=== PATIENT | male | born 1925 | race African-American/Black ===

== ENCOUNTER 2017-03-11 09:34 | Inpatient (IN) | payer MEDICARE, OTHER ==
[2017-03-11 10:40] LABS: ALT (SGPT) 55 U/L (8-55); AST (SGOT) 58 U/L (5-34); Alkaline Phosphatase 67 U/L (40-150); Anion Gap 13 mmol/L (10-20); BUN (Urea Nitrogen) 23 mg/dL (8.4-25.7); Bilirubin, Total 0.7 mg/dL (0.2-1.2); Calc. Creatinine Clearance 0 mL/min (70-130); Calcium 9.4 mg/dL (7.8-10.44); Carbon Dioxide 26 mmol/L (23-31); Chloride 101 mmol/L (98-107); Estimated GFR-MDRD 52; Globulin 5.2 g/dL (2.4-3.5); Hematocrit 20.6 % (42.0-52.0); Mean Platelet Volume 10.5 fL (7.4-10.4); Protein, Total 8.6 g/dL (5.8-8.1); Red Blood Cell (RBC) Count 1.87 mill/uL (4.70-6.10)
[2017-03-11 10:44] LABS: Troponin I 0.147 ng/mL (< 0.028)
--- NOTE | 2017-03-11 10:48 | CT ---
EXAM: NONCONTRAST HEAD CT: COMPARISON: 03/27/15. HISTORY: CVA with left-sided weakness. Facial droop and speech changes. Last seemed normal last night. TECHNIQUE: Noncontrast head CT is performed from the skull base to the skull vertex. FINDINGS: There is limited evaluation due to motion degradation. There are confluent white matter hypodensiti es due to chronic small-vessel ischemic change. There is stable atrophy. Cortical mcpherson-white matte r differentiation is preserved. Stable configuration of the ventricular system. The calvarium is intact. Adequate aeration of the sinuses and mastoid air cells. Remote left zygom atic arch fracture is noted. IMPRESSION: Limited evaluation due to motion degradation. No acute intracranial process. POS: [facility]
[2017-03-11 11:18] LABS: Anisocytosis MODERATE=16-30 cells (100X) (0-5/hpf); Band 9 % (5-11); Bite Cells SLIGHT = 2-5 cells (100X) (0-1/hpf); Hypochromia SLIGHT = 6-15 cells (100X) (0-5/hpf); Neutrophil 52 % (42-75); Nucleated RBC 1 % (0); Polychromasia SLIGHT = 2-3 cells (100X) (0-2/hpf); Rouleaux Formation SLIGHT = 1-5 cells (100X) (None Seen); Schistocytes SLIGHT = 2-5 cells (100X) (0-1/hpf)
--- NOTE | 2017-03-11 11:53 | RAD ---
AP VIEW CHEST: INDICATIONS: Left-sided weakness and slurred speech. FINDINGS: There is air space consolidation seen in the left lower lobe and lingula, suspicious for pneumonia. This is new from the comparison exam. There is mild cardiomegaly. The pulmonary vasculature is wi thin normal limits. The right lung is clear. No acute osseous abnormality. IMPRESSION: Findings suggestive of left lower lobe and lingular pneumonia. Continued followup is recommended POS: [facility]
[2017-03-11 12:20] LABS: PTT 38.3 SEC (22.9-36.1); Prothrombin Time 17.2 SEC (12.0-14.7)
[2017-03-11] MEDS ORDERED: Aspirin 300 MG Suppository ONE (12:45)
[2017-03-11] MEDS ORDERED: cefTRIAXone\\ROCEPHIN 1 GM, Syringe 0.4 ML in Sterile Water 9.6 ML SLOW IVP SCH (15:00)
[2017-03-11] MEDS ORDERED: Azithromycin 500 MG in Sodium Chloride 0.9% 250 ML 250 ML IVPB SCH (15:15)
[2017-03-11 15:47] LABS: Troponin I 0.143 ng/mL (< 0.028)
[2017-03-11] MEDS ORDERED: Ondansetron ODT 4 MG TAB SL PRN (16:58)
[2017-03-11] MEDS ORDERED: Ondansetron HCl/PF 4 MG/2 ML Vial IVP PRN (16:58)
[2017-03-11] MEDS ORDERED: Acetaminophen 325 MG TAB PO PRN (16:58)
[2017-03-11] MEDS ORDERED: Bisacodyl 10 MG SUPP PR PRN (17:05)
[2017-03-11] MEDS ORDERED: Labetalol HCl 100 MG/20 ML VIAL SLOW IVP PRN (17:05)
[2017-03-11] MEDS ORDERED: Bisacodyl 5 MG TAB PO PRN (17:05)
[2017-03-11] MEDS ORDERED: Acetaminophen 650 MG Suppository PR PRN (17:05)
[2017-03-11] MEDS ORDERED: hydrALAZINE 20 MG/ML VIAL SLOW IVP PRN (17:05)
[2017-03-11 17:53] LABS: Hemoglobin A1c 4.7 % (4.0-6.0)
[2017-03-11] MEDS ORDERED: FLU VACC TS2017-18 (>65YR) 0.5 ML SYRINGE IM ONE (18:45)
[2017-03-11] MEDS: metroNIDAZOLE 500 MG in Premix Bag 1 BAG IVPB SCH (21:52)
[2017-03-11] MEDS: Sodium Chloride 0.9% 1,000 ML IV SCH (21:52)
[2017-03-11] MEDS: Atorvastatin Calcium 20 MG TAB PO SCH (21:53)
[2017-03-11] MEDS ORDERED: traMADol HCl 50 MG TAB PO PRN (22:03)
[2017-03-12] MEDS ORDERED: cefTRIAXone\\ROCEPHIN 1 GM in Sodium Chloride 0.9% 100 ML IVPB SCH (00:01)
[2017-03-12 02:17] LABS: Hematocrit 25.9 % (42.0-52.0); Red Blood Cell (RBC) Count 2.37 mill/uL (4.70-6.10); White Blood Cell (WBC) Count 10.1 thou/uL (4.8-10.8)
[2017-03-12 02:27] LABS: #Monocytes 1.2 thou/uL (0.11-0.59); #Neutrophils 6.9 thou/uL (1.40-6.50); %Basophils 0.4 % (0.0-1.0); %Eosinophils 0.3 % (0.0-10.0); %Lymphocytes 19.7 % (21.0-51.0); %Monocytes 11.3 % (0.0-10.0); Anisocytosis SLIGHT = 6-15 cells (100X) (0-5/hpf); Macrocytosis SLIGHT = 6-15 cells (100X) (0-5/hpf); Target Cells SLIGHT = 2-5 cells (100X) (0-1/hpf)
[2017-03-12 02:33] LABS: ALT (SGPT) 55 U/L (8-55); AST (SGOT) 70 U/L (5-34); Alkaline Phosphatase 67 U/L (40-150); Anion Gap 13 mmol/L (10-20); BUN (Urea Nitrogen) 21 mg/dL (8.4-25.7); Bilirubin, Total 1.2 mg/dL (0.2-1.2); Calc. Creatinine Clearance 35 mL/min (70-130); Calcium 9.3 mg/dL (7.8-10.44); Carbon Dioxide 23 mmol/L (23-31); Chloride 105 mmol/L (98-107); Cholesterol 82 mg/dl (< 200 Desired); Estimated GFR-MDRD 65; Iron 44 ug/dL (65-175); LDL Cholesterol, Calculated 45 mg/dL; Magnesium 1.6 mg/dL (1.6-2.6); Phosphorus 3.1 mg/dL (2.3-4.7); Protein, Total 8.2 g/dL (5.8-8.1)
[2017-03-12] MEDS: metroNIDAZOLE 500 MG in Premix Bag 1 BAG IVPB SCH ×3 (05:20→21:38)
--- NOTE | 2017-03-12 06:24 | HP ---
DATE OF ADMISSION: 03/11/2017 CHIEF COMPLAINT: Stroke. HISTORY OF PRESENT ILLNESS: This is an 89-year-old gentleman with a past history of anemia, chronic kidney disease, myelodysplastic syndrome, hypertension, and throat cancer in remission, who presented after he woke up with left-sided hemiparesis that started sometime between 10 p.m. last night and 6 a.m. in the morning. He subsequently was brought to the ED and in the ED , he was found to have anemia with a hemoglobin of 6.5, 1 unit PRBCs was ordered and he was transferred to our service on the stroke unit. Currently, he feels weak and tired, but other than that he is feeling okay. REVIEW OF SYSTEMS: CONSTITUTIONAL: Denies fever or chills. EYES: Denies icterus or injection or decreased vision. EARS, NOSE, MOUTH, AND THROAT: Denies sore throat or ear pain or discharge. CARDIOVASCULAR: Denies chest pain or trouble breathing or palpitations. RESPIRATORY: Denies cough or wheeze. GASTROINTESTINAL: Denies nausea, vomiting, or constipation. GENITOURINARY: Denies dysuria or urgency. MUSCULOSKELETAL: Denies any myalgias or arthralgias. SKIN: Denies any rash or lesion. NEUROLOGIC: See HPI. PSYCHIATRIC: Denies depression or anxiety HEMATOLOGY: Denies any bruising or bleeding. No hematochezia or melena. All other systems reviewed and are negative. PAST MEDICAL HISTORY: Positive for CKD 3, anemia, myelodysplastic syndrome, hypertension, throat cancer. PAST SURGICAL HISTORY: Throat procedures. MEDICATIONS: Currently on Norvasc, epoetin, Megace, prazosin, tramadol. ALLERGIES: No known drug allergies. SOCIAL HISTORY: Denies tobacco or ethanol use. He has a remote history of smoking. FAMILY HISTORY: Noncontributory. PHYSICAL EXAMINATION: VITAL SIGNS: Temperature 97.9, pulse 85, respirations 18, O2 sat 95% on room air, BP 133/60. GENERAL: Currently in no acute distress. EYES: No icterus or injection. EARS, NOSE, MOUTH, AND THROAT: He has dry mucous membranes, but no visible oral lesions. Pinnae are normal. Nares patent. NECK: With no bruit. Trachea is midline, mobile, no thyromegaly. CARDIOVASCULAR: Regular rate and rhythm without murmurs, gallops, or rubs. No peripheral edema. RESPIRATIONS: Clear to auscultation bilaterally without wheezes, rales, or rhonchi. No increased work of breathing. GASTROINTESTINAL: Bowel sounds positive. Scaphoid. Nontender to palpation. No palpable organomegaly. GENITOURINARY: Deferred. MUSCULOSKELETAL: Without obvious deformity or contracture. Obvious joint effusion. SKIN: Without any evidence of breakdown. He has been turned and his sacrum was without ulcer per nursing. NEUROLOGIC: He has left side hemiparesis 3/5 in upper and lower extremities. On the right side, he feels like he is 4+/5. It is difficult to say because he is a slightly cachectic-looking gentleman who appears a bit weak at baseline. His sensation is intact to light touch in both upper and lower extremities and he says they are symmetric. NEUROLOGICAL: Cranial nerves II through XII are specifically tested and symmetric and intact. No palpable lymphadenopathy in the cervical or axillary chains. LABORATORY DATA: Hemoglobin of 6.5, white count of 5, MCV of 110, platelets 150. Coagulations: PT was 17.2, INR 1.4, PTT 38.3. Chemistry: Sodium 136, potassium 4.4, chloride 101, BUN 23, creatinine 1.53, glucose 140, AST 58. Troponin 0.147 and 0.143. Chest x-ray report is read as finding suggestive of lower lobe and lingular pneumonia. On my personal interpretation, chest film was adequate. and I do not see any significant pneumonia. 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 Brain CT re- demonstrates no acute intracranial process, but he does have evidence of confluent white matter hypodensities and stable cerebral atrophy. ECG, my read , demonstrates NSR, RBBB, nonspecific T wave changes in that setting. ASSESSMENT AND PLAN: This is an 89-year-old male with: 1. Cerebrovascular accident. We will obtain PT, OT, and speech consultations. MRI brain and ultrasound of the neck to avoid any contrast at this time, go ahead and obtain TTE. 2. Anemia, macrocytic. We will obtain iron studies as well as folate, B12, transfuse 1 unit, recheck. Occult was negative. He has had to be admitted for transfusion before. DDx is wide - ckd, hemolysis, GI bleed, other 3. History of myelodysplastic syndrome with reported renal mass as well as a rib metastasis. Discussed with the patient and family and they preferred not to have a treatment for this and want to be made comfortable, but at this time do not want to be DNR. 4. Chronic kidney disease. We will order a PTH, vitamin D, magnesium, phosphorus as well as a renal sonogram and we may consider consulting Nephrology in the a.m. concerning his epoetin. 5. Elevated troponin. Suspect this is chronic kidney disease and currently, he is asymptomatic. We will trend these down and obtain the EKGs. I discussed this with his daughter and the patient and in the event that he were to develop chest pain or ECG changes they are unsure if they want anything done. 6. Elevated AST. Will order CK, consider RUQ sono pending results. 7. Deep venous thrombosis prophylaxis with heparin. 8. Gastrointestinal prophylaxis with an H2 tessie and for his elevated AST of 58. We will go ahead and order CK. MTDD
[2017-03-12 06:42] LABS: Troponin I 0.139 ng/mL (< 0.028)
--- NOTE | 2017-03-12 07:31 | HP-2 ---
DATE OF ADMISSION: 03/11/2017 LOCATION OF ADMISSION: [facility]. CODE STATUS: FULL CODE PRIMARY CARE PHYSICIAN: [facility], Dr. Banks. ATTENDING: Dr. Ray. RESIDENT: Dr. Daryn Renteria, PGY1 HISTORIAN: The daughter and somewhat the patient. Sees an oncologist in [place]. CHIEF COMPLAINT: Left-sided weakness. HISTORY OF PRESENT ILLNESS: This is an 89-year-old -[place] male that presents with new onset stroke symptoms, left-sided weakness. Daughter reports that he had a stroke between 10:00 p.m. yesterday and 6:00 this morning. She says he has had no movement in his left leg, no movement in his left arm, and has slurred speech. She said he has gotten a little bit of movement maybe back in his left leg. Going back to 3 weeks, daughter says that she was called by her brother and he told her that patient was getting more confused. She came to stay with him, reports that he has not been eating for the last 3 weeks. Says he has had episodes of blacking out and has his feet dragging. She said when he has tried to get up to go to the bathroom he has had multiple falls. She said they were supposed to have an appointment with their oncologist today in [place], and wanted to have him get worked up for stroke, because he has been getting forgetful for the last 2 weeks. She reports that he has a history of throat cancer, myelodysplastic syndrome, and he has a known kidney mass and right lung mass. Currently, patient somewhat with it he does appear to be very weak. He seems to only be able to answer 1 worded yes/no questions. When asked about fever or chills, he denied. When asked about nausea, vomiting, diarrhea, constipation, he denied. He denies any dizziness or vision changes or blurred vision. He denies any tingling. Does report having the weakness on the left side. He is able to answer questions. He is able to follow commands, and move his right side. Patient denies any other concerns or complaints at this time. Daughter does report the patient having a bloody bowel movement on Friday. She says she is not sure, she has not checked, but is unsure if he is continuing to have bloody bowel movements; I am not quite sure at this time. No diarrhea or constipation. PAST MEDICAL HISTORY: Throat cancer, myelodysplastic syndrome, and hypertension. PAST SURGICAL HISTORY: Patient was not able to answer appropriately and daughter did not know at this time. ALLERGIES: SULFA allergies. MEDICATIONS: He is on amlodipine 10 mg 1-1/2 tabs daily, takes a Boost supplement drink, docusate 100 mg, takes epoetin km 10,000 units every week, takes megestrol acetate 625 mg, takes multivitamin, takes potassium chloride 20 mEq, takes paroxetine 50 mg, takes terazosin 2 mg, takes tramadol 50 mg 4 times daily p.r.n. as needed. FAMILY HISTORY: Unknown on his like mom and dad, but his daughter and son both report having G6PD deficiency. SOCIAL HISTORY: No tobacco use currently, no alcohol use, and no drugs. REVIEW OF SYSTEMS: All review of systems not listed in the HPI are otherwise negative at this time. OBJECTIVE: VITAL SIGNS: Blood pressure was 114/43, pulse was 88, respirations were 12, temperature was 98.1, pulse ox is 94% on room air, current weight is 62.6 kilograms. GENERAL: He is alert and oriented x1. He is somewhat thin. Does not seem appropriately nourished. He is not completely interactive. He does get weak and tired out when answering questions. HEENT: His mucous membranes are dry. NECK: Supple, no lymphadenopathy, no thyromegaly, maybe possible bruit auscultated or to just be aortic systolic murmur kind of hearing. He does have strong aortic systolic murmur from likely aortic stenosis. CARDIOVASCULAR: Regular rate and rhythm, prominent systolic murmur noted. No gallops. Radial pulses and pedal pulses palpated bilaterally. RESPIRATORY: Normal breathing effort. LUNGS: Clear to auscultation bilaterally. SKIN: Warm and dry. No lesions noted. ABDOMEN: Soft. He has mild pain to palpation in all 4 quadrants. Bowel sounds heard in all 4 quadrants. MUSCULOSKELETAL: Structure looks just a little bit undernourished. His strength is 4/5 on the right side, and the strength in his proximal muscles are 2/5, like of his hip muscles and groin. His left side, he has 0/5 strength. Unable to move his left arm or leg on commands. NEUROLOGIC: He does have focal neurologic deficits. He has a left-sided facial droop. He does have numbness reported on his left side as well. Cranial nerves III, IV, and are intact. Cranial nerve VII has a deficit, as he does have facial droop. Cranial nerve XI is affected, as he is not able to shrug his shoulders. Otherwise, all other cranial nerves are appropriate. LABORATORY DATA: White blood cell count was 5.0, hemoglobin was 6.5, hematocrit was 20.6, MCV was 110, platelets were around 150. Sodium was 136, potassium was 4.4, potassium chloride was 101, CO2 of 26, BUN was 23, creatinine was 1.53, glucose was 140, calcium was 9.4. Total protein was 8.6, albumin was 3.4, alkaline phosphatase was 67, AST was 58, ALT was 55, total bilirubin was 0.7. PTT was 38.3, PT was 17.2, INR was 1.4. CK-MB was 1.6. Troponin was 0.147. EKG showed right bundle branch block and some premature atrial complexes. The chest x-ray showed findings suggestive of left lower lobe and lingular pneumonia. IMAGING: CT of the brain without contrast showed limited evaluation due to motion degradation. No acute process noted. ASSESSMENT AND PLAN: 1. Stroke. We will start him on aspirin and a statin. We will consult Neurology. We will get an MRI to assess extent of stroke damage. We will consult PT, OT and speech consult, especially since he is having the slurred speech. We will check a fasting lipid panel, a TSH, and A1c. We will check an echocardiogram, as he does have the loud systolic murmur, and we will check carotid Dopplers to check for any blockages in the carotid arteries at this time. We will also check a CK, as he is having the muscle weakness and with the stroke to see any effect on muscle from the stroke. 2. Myelodysplastic syndrome with macrocytic anemia and symptomatic anemia currently. We will check a B12, folate, iron, ferritin, total iron binding capacity. We will monitor CBCs. We will try and get his records from his oncologist in [place]. We will transfuse 1 unit of red blood cells, as his hemoglobin was low at 6.5. We will recheck an H and H later after transfusion. We will check fecal occult blood test, as he did have reported blood in his stools on Friday. 3. History of throat cancer with kidney and lung mass. We will get records from outside oncologist. We will consult casework manager as he may need a placement, and likely consider palliative care consult as well in the morning after talking with family further. 4. Chronic kidney disease, stage 3, likely possible with some acute kidney injury. We did look at her past visit from 2012. Creatinine was around its baseline. We will start him on IV fluids at a rate of 100. We will check a PTH , magnesium, and phosphorus and we will continue to monitor BMP daily for improvement. 5. Hypertension. We will hold his home blood pressure medications and allow for permissive hypertension within the next 24 hours. 6. Failure to thrive. We will consult dietary. We will have this speech consult, as right now he is having slurred speech, and I will assess his status on eating and continue with IV fluids for now. The patient is likely a little bit dehydrated. 7. Pneumonia, likely aspiration pneumonia due to poor eating status. We will start him on Rocephin and Flagyl now. We will continue to monitor O2 sats and monitor ortho vitals and we will consider getting cultures if needed if the patient does spike further fever. 8. Elevated troponins. We will continue to trend troponins, as they were in the indeterminate range. We will check 2 more sets of troponins every 3 hours. Continue to follow. 9. Deep vein thrombosis prophylaxis, as he is currently having symptomatic anemia and maybe possible bleeding in his stool. We will just do sequential compression devices for deep vein thrombosis prophylaxis. 10. Syncope, possibly that is secondary to aortic stenosis with a systolic murmur. We are getting the heart echocardiogram along with this stroke as well. He is getting IV fluids. Likely possible dehydration could also be due to his anemia, which we are treating with packed red blood cells. We will continue to monitor and assess. MTDD
--- NOTE | 2017-03-12 08:08 | ULT ---
RENAL ULTRASOUND: Comparison: None. History: Acute kidney injury. Technique: Multiplanar grayscale and color doppler images were obtained in a renal ultrasound. FINDINGS: There are anechoic cysts in both kidneys. The largest on the right measures 6.8 cm in size. The larg est on the left measures 4.7 cm in size. The kidneys demonstrate normal cortical echogenicity withou t hydronephrosis or calculi measuring 14.0 and 11.3 cm in length on the right and left respectively. Small amount of debris is seen in the urinary bladder which is otherwise unremarkable. IMPRESSION: Bilateral renal cysts. POS: [facility]
--- NOTE | 2017-03-12 08:18 | ULT ---
CAROTID ULTRASOUND: History: Stroke. Technique: Multiplanar grayscale and color doppler images obtained in a carotid ultrasound. Spectral analysis of the doppler waveforms were performed. FINDINGS: There is a moderate amount of plaque in the left common and internal carotid artery. No significant plaque is seen on the right. The doppler waveforms are normal bilaterally. Peak systolic velocity in the right ICA is 89 cm/sec. Peak systolic velocity in the right CCA is 91 cm/sec. The right ICA/CCA ratio is 1.0. Peak systolic velocity in the left ICA is 121 cm/sec. Peak systolic velocity is the left CCA 119 cm/ sec. The left ICA/CCA ratio is 1.0. Both vertebral arteries demonstrate antegrade flow without focal stenosis. IMPRESSION: No evidence of hemodynamically significant stenosis. POS: [facility]
[2017-03-12] MEDS ORDERED: Docusate 100 MG CAP PO SCH (09:00)
[2017-03-12] MEDS ORDERED: FLU VACC TS2017-18 (>65YR) 0.5 ML SYRINGE IM ONE (09:00)
[2017-03-12] MEDS ORDERED: Aspirin 81 mg Enteric Coated Tablet PO SCH (09:00)
--- NOTE | 2017-03-12 09:07 | PDOC.FM ---
- Subjective Subjective: Pt sleeping at the time of entry. Family in room states overnight he was irritable and tried getting out of bed. Pt still only responds with one worded answers. Speech still slurred. Pt was not very responsive to commands. Very weak at this time. Pt denies any pain. No real complaints at this time. - Objective MAR Reviewed: Yes Vital Signs & Weight: Vital Signs (12 hours) Temp Pulse Resp BP Pulse Ox 03/12/17 08:00 97.9 F 96 20 139/67 97 03/12/17 03:37 97.8 F 106 H 18 146/81 H 95 03/11/17 23:25 98.9 F 106 H 18 149/70 H 93 L 03/11/17 21:50 98.9 F 106 H 18 93 L Weight Weight 63.639 kg I&O: 03/11/17 03/12/17 03/13/17 06:59 06:59 06:59 Intake Total 1580 Balance 1580 Result Diagrams: 03/12/17 01:59 03/12/17 01:59 Radiology: Carotid Doppler: no significant stenosis Renal U/S: Bilateral Renal cysts <Daryn Renteria - Last Filed: 03/12/17 09:05> - Objective Vital Signs & Weight: Vital Signs (12 hours) Temp Pulse Resp BP Pulse Ox 03/12/17 11:31 98.2 F 87 14 144/71 H 98 03/12/17 08:23 98.2 F 87 14 98 03/12/17 08:00 97.9 F 96 20 139/67 97 03/12/17 03:37 97.8 F 106 H 18 146/81 H 95 Weight Weight 140 lb 4.8 oz I&O: 03/11/17 03/12/17 03/13/17 06:59 06:59 06:59 Intake Total 1580 Balance 1580 Result Diagrams: 03/12/17 01:59 03/12/17 01:59 <Cleve Shaikh - Last Filed: 03/12/17 12:38> Phys Exam - Physical Examination Mucous membranses dry Neck: no JVD, supple Respiratory: no rhonchi Rales on auscultation Cardiovascular: RRR -Murmur not as significant as yesterday Gastrointestinal: soft, no distention, positive bowel sounds Musculoskeletal: no edema, pulses present -Unable to move Left side today. Left facial droop noted. Strenght 3/5 on R -Pt not very responsive to commands. Very weak Deviation from normal: Pt only oriented to person Skin: no rash <Daryn Renteria - Last Filed: 03/12/17 09:05> Dx/Plan (1) CVA (cerebral vascular accident) Code(s): I63.9 - CEREBRAL INFARCTION, UNSPECIFIED Status: Acute Qualifiers: Laterality of affected vessel: left Plan: New onset stroke with residual L. sided weakness and L sided facial droop. Unable to move L. side at this time. -Started on Aspirin and Statin -Neurology consulted- Dr. Zamudio, will await recs -MRI to be obtained today. -Carotid Doppler negative -PT/OT consulted and will tx -Awaiting Speech assessment as he is having slurred speech. -Troponins indeterminate, trended down. Likely demand ischemia -ECHO pending of heart. (2) History of throat cancer Code(s): Z85.819 - PRSNL HX OF MALIG NEOPLM OF UNSP SITE LIP,ORAL CAV,& PHARYNX Status: Chronic Plan: -Also reported by daughter to have a Kidney mass and R. Lung mass -Sees oncology in [place] -Will try and obtain records -Daughter states patient denied chemo or tx at this time -Need to talk with family about advance directives. Pt stated to daughter he wants to be full code. Yet denies tx and is getting progressively weaker. (3) Myelodysplastic syndrome Code(s): D46.9 - MYELODYSPLASTIC SYNDROME, UNSPECIFIED Status: Acute Plan: -Vit B12 elevated. Folate normal. MCV elevated -Has macrocytic anemia on top of anemia of chronic disease. -Iron low, Ferritin high. -Will obtain records from oncology in [place]. -Is on Epogen. On Iron and vitamin supplementation. Will continue home meds (4) Pneumonia Code(s): J18.9 - PNEUMONIA, UNSPECIFIED ORGANISM Status: Acute Qualifiers: Laterality: left Lung location: lower lobe of lung Plan: LLL consolidation noted on CXR -Treating with Rocephin and Flagyl at this time. Likely a component of aspiration pneumonia -Will continue to monitor O2 sats and vital signs at this time. (5) Failure to thrive Code(s): GCZ4908 - Status: Acute Plan: -Pt has not been eating well last 3 weeks. Having multiple falls and getting progressively weaker. -Dietary consulted -NPO until cleared by Speech -Case management consulted as may need placement outpt once discharged. -Hx of cancer. obtain records from oncology in [place] (6) Chronic kidney disease Code(s): N18.9 - CHRONIC KIDNEY DISEASE, UNSPECIFIED Status: Acute Qualifiers: Chronic kidney disease stage: stage 3 (moderate) Qualified Code(s): N18.3 - Chronic kidney disease, stage 3 (moderate) Plan: Cr at baseline when compared to previous visit -Continue IV fluids -Renal U/S shows bilateral cysts. -PTH low. CKD likely stable at this time. (7) Hypertension Code(s): I10 - ESSENTIAL (PRIMARY) HYPERTENSION Status: Acute Plan: -Allowing permissive HTN. -Home BP medications being held. <Daryn Renteria - Last Filed: 03/12/17 09:05> Attending Addendum - Attending Addendum I personally evaluated the patient and discussed the management with Dr. Renteria I agree with the History, Examination, Assessment and Plan documented above with any addition or exceptions noted below. Unfortunate 89 year old with throat cancer, liver and kidney masses who has opted for palliative care only. He presents with new stroke. He is speaking in yes/no answers only and has minimal movement of his left arm and leg. We discussed prognosis with his daughter, who has power of county attorney. He will need placement and probably hospice. <Cleve Shaikh - Last Filed: 03/12/17 12:38>
--- NOTE | 2017-03-12 15:15 | CON ---
DATE OF CONSULTATION: 03/12/2017 LOCATION: [address] [place] [address]. CONSULTING PHYSICIAN: Dr. Daryn Renteria. REASON FOR CONSULTATION: Stroke. HISTORY OF PRESENT ILLNESS: The history is obtained from chart review and from the patient's daught er who was present at bedside. Patient is not able to provide any history. He is an 89-year-old ge ntleman with past medical history of chronic kidney disease, stage 3; anemia; myelodysplastic syndro me; hypertension; throat cancer in remission; who presented yesterday to the ER with left-sided weak ness, slurred speech, and facial droop on the left side. When he presented to the ER, his hemoglobi n was 6.5. He was given 1 unit of packed RBCs and then he was transferred to the stroke unit for fu rther evaluation and treatment. The patient's daughter says that he was not able to hold his left arm and left leg and he had slurre d speech and facial droop on the left side yesterday. He denied any vision changes, no chest pain, no shortness of breath, no loss of consciousness. No seizure activity reported. He denies any prio r history of strokes. He is not on any antiplatelet treatment at home. Today, he is moving his left leg a little bit better compared to yesterday. He still is weak in the left arm. His speech is still slurred. He denies any other symptoms today. PAST MEDICAL HISTORY: As mentioned in the HPI. PAST SURGICAL HISTORY: Throat procedures. MEDICATIONS: Please review the chart. ALLERGIES: No known drug allergies. SOCIAL HISTORY: Denies tobacco and alcohol use. Remote history of smoking. FAMILY HISTORY: Noncontributory. PHYSICAL EXAMINATION: VITAL SIGNS: Temperature 98.2, pulse rate 87, respiratory rate 14, O2 sats 98% on room air, blood p ressure 144/71. GENERAL: The patient is in no apparent distress. HEENT: Normocephalic, atraumatic. Normal sclerae. NECK: Supple. RESPIRATORY: Clear to auscultation bilaterally. CARDIOVASCULAR: Regular rate and rhythm. NEUROLOGIC: The patient opens his eyes when I called his name. He was drowsy appearing. On repeat ed questioning, he was able to tell me his first name. He was able to tell me his daughter's name. He could not tell me his age, date of , where he was, it appeared that patient did not want to answer questions and did not want to follow commands. Speech and language: Slurred speech. He wa s able to name one object. He did not follow commands, but he was able to comprehend, he just did n ot want to participate in exam. Cranial nerves: Pupils were reactive to light bilaterally. Unable to check extraocular movements and visual chun, because patient is not cooperative with the exam. No apparent facial droop noted. Motor: Normal tone and bulk. The patient moved his right upper and right lower extremity more compared to the left. He favored his right side. When I asked he di d not move his left upper extremity, but when assisted he had some tone present. He was not complet jocy flaccid, but he could not hold it against gravity and he dropped it down. The left lower extrem ity, he did not move it much spontaneously and when assisted he dropped it down, but with stimulatio n, he was able to move it, although not as much as the right lower extremity. Tone slightly decreas ed on the left compared to the right. Sensation appeared to be intact to fine touch throughout. Co ordination unable to test. Reflexes decreased throughout. Gait and Romberg not tested. LABORATORY DATA: CBC with normal white cell count, platelets normal. Chemistry, normal electrolyte s. LDL 45. B12 normal, folic acid normal. TSH normal. IMAGING: The patient had CT head done on admission, which was limited due to motion degradation. N o acute intracranial process reported. MRI brain is still pending. Carotid Dopplers did not show a ny significant stenosis. Echocardiogram showed ejection fraction 55%-60%, mild TR. MEDICATIONS: The patient is currently on aspirin and low dose statin. IMPRESSION: 1. Acute onset of left side weakness involving left upper and left lower extremity, left facial chico op and slurred speech, possibly due to stroke. 2. History of anemia. 3. History of chronic kidney disease. 4. History of myelodysplastic syndrome. 5. History of hypertension. RECOMMENDATIONS: 1. We would recommend following up on MRI brain results. If MRI brain shows acute stroke, then wou ld recommend continuing patient on aspirin and statin. 2. Agree with PT, OT, and speech therapy. 3. Continue medical management per primary team. No other recommendations from neurological standp oint. Please call us with questions.
[2017-03-12] MEDS: Sodium Chloride 0.9% 1,000 ML IV SCH (15:34)
[2017-03-12] MEDS: Multivitamin W/ Minerals 1 TAB PO SCH (15:58)
[2017-03-12] MEDS: Potassium Chloride 20 MEQ TAB PO SCH (15:59)
[2017-03-12] MEDS: Megestrol Acetate 800 MG/20 ML UDCUP PO SCH (16:12)
--- NOTE | 2017-03-12 16:15 | MRI ---
BRAIN MRI WITHOUT CONTRAST: Date: 03-12-17 Comparison: None. History: Left sided weakness. Evaluate for acute infarction. Technique: Multiplanar, multisequence MR imaging of the brain is obtained without contrast. FINDINGS: The study was terminated prematurely secondary to persistent significant patient motion artifact. Ax ial diffusion weighted imaging/ADC map was obtained. No other diagnostic imaging could be obtained. The diffusion weighted imaging demonstrates foci of increase signal intensity within bilateral cereb ellar hemispheres, including two foci measuring up to 1.2 cm on the left and two foci measuring up t o 1.1 cm on the right. No restricted diffusion is seen within the brain stem. There is a probable pu nctate focus of restricted diffusion within the posterior deep white matter of the left frontopariet al region. There are probably three foci of restricted diffusion within the right frontal lobe poste riorly, most obvious in the periventricular white matter adjacent to the posterior aspect of the bod y of the right lateral ventricle measuring up to 9 mm. An additional focus of probable restricted di ffusion is seen within the posterolateral left frontotemporal region, best seen on image 42. IMPRESSION: Limited examination secondary to patient motion artifact. The only diagnostic quality imaging that c ould be obtained was the diffusion weighted sequence, which demonstrates evidence of bilateral supra tentorial and infratentorial acute infarctions suggesting an embolic phenomenon. POS: C
[2017-03-12] MEDS: Aspirin 300 MG Suppository PR SCH (16:59)
[2017-03-12] MEDS: cefTRIAXone\\ROCEPHIN 1 GM, Syringe 0.4 ML in Sterile Water 9.6 ML SLOW IVP SCH (18:01)
[2017-03-12] MEDS: Atorvastatin Calcium 20 MG TAB PO SCH (20:27)
[2017-03-12] MEDS: Docusate Sodium 100 MG/10 ML UDCUP PO SCH (20:29)
[2017-03-12] MEDS ORDERED: Terazosin HCl 1 MG CAP PO SCH (21:00)
[2017-03-12] MEDS: Acetaminophen 325 MG TAB PO PRN (21:38)
[2017-03-13] MEDS: Sodium Chloride 0.9% 1,000 ML IV SCH ×4 (04:12→21:02)
[2017-03-13] MEDS: metroNIDAZOLE 500 MG in Premix Bag 1 BAG IVPB SCH ×3 (05:24→21:02)
[2017-03-13 06:36] LABS: Hematocrit 22.1 % (42.0-52.0); Mean Platelet Volume 11.3 fL (7.4-10.4); Red Blood Cell (RBC) Count 2.03 mill/uL (4.70-6.10); White Blood Cell (WBC) Count 6.3 thou/uL (4.8-10.8)
[2017-03-13 06:53] LABS: Anisocytosis MODERATE=16-30 cells (100X) (0-5/hpf); Band 4 % (5-11); Macrocytosis SLIGHT = 6-15 cells (100X) (0-5/hpf); Neutrophil 55 % (42-75); Target Cells SLIGHT = 2-5 cells (100X) (0-1/hpf); Tear Drops SLIGHT = 2-5 cells (100X) (0-1/hpf)
[2017-03-13 06:56] LABS: Anion Gap 15 mmol/L (10-20); BUN (Urea Nitrogen) 25 mg/dL (8.4-25.7); Calc. Creatinine Clearance 36 mL/min (70-130); Calcium 8.4 mg/dL (7.8-10.44); Carbon Dioxide 19 mmol/L (23-31); Chloride 109 mmol/L (98-107); Estimated GFR-MDRD 66
--- NOTE | 2017-03-13 08:21 | PDOC.FM ---
- Subjective Subjective: Pt doing much better this morning. Still only oriented to person. Speech is still slurred and somewhat hard to understand. Pt reports having tingling on his left side. Daughter also says he is having tremors on his right side as well. Daughter thinks he is doing better this morning. Had talk with patient about his code status. Pt still full code at this time. - Objective MAR Reviewed: Yes Vital Signs & Weight: Vital Signs (12 hours) Temp Pulse Resp BP Pulse Ox 03/13/17 04:00 98.0 F 89 16 120/65 99 03/12/17 23:37 97.7 F 93 18 121/65 98 03/12/17 21:15 99.6 F 97 16 95 Weight Admit Weight 61.87 kg Weight 63.639 kg I&O: 03/12/17 03/13/17 03/14/17 06:59 06:59 06:59 Intake Total 1580 1550 Balance 1580 1550 Result Diagrams: 03/13/17 06:26 03/13/17 06:26 Radiology Reviewed by me: Yes Radiology: Brain MRI: bilateral supratentorial and infratentorial acute infarctions suggesting embolic picture Carotid Doppler: Negative ECHO: EF 55-60%. mod elevated pulm pressure <Daryn Renteria - Last Filed: 03/13/17 08:18> - Objective Vital Signs & Weight: Vital Signs (12 hours) Temp Pulse Resp BP Pulse Ox 03/13/17 08:00 98.5 F 89 20 120/72 95 03/13/17 04:00 98.0 F 89 16 120/65 99 03/12/17 23:37 97.7 F 93 18 121/65 98 Weight Admit Weight 136 lb 6.4 oz Weight 140 lb 4.8 oz I&O: 03/12/17 03/13/17 03/14/17 06:59 06:59 06:59 Intake Total 1580 1550 Balance 1580 1550 Result Diagrams: 03/13/17 06:26 03/13/17 06:26 <Cleve Shaikh - Last Filed: 03/13/17 10:55> Phys Exam - Physical Examination Neck: no nodes, no JVD, supple, full ROM Respiratory: no wheezing, no rhonchi, clear to auscultation bilateral Cardiovascular: RRR, no significant murmur, no rub Gastrointestinal: soft, non-tender, no distention, positive bowel sounds Musculoskeletal: no edema, pulses present strength 4/5 r. side. 3/5 on l. side pt regaining movement and strength in left side, move against gravity Facial droop on L. side. Pt reports tingling sensation on touch. Deviation from normal: Oriented to person Skin: no rash <Daryn Renteria - Last Filed: 03/13/17 08:18> Dx/Plan (1) CVA (cerebral vascular accident) Code(s): I63.9 - CEREBRAL INFARCTION, UNSPECIFIED Status: Acute Qualifiers: Laterality of affected vessel: left Plan: CVA with residual L. sided weakness. Having tremors on the R. side -Started on Aspirin and Statin -Neurology consulted- Dr. Zamudio, will await recs -MRI- supratentorial and infratentorial infarctions likely related to emboli -Carotid Doppler negative -PT/OT consulted and will tx -Speech consulted- appreciate recs, placed on pureed diet at this time -Troponins indeterminate, trended down. Likely demand ischemia -ECHO shows normal Ejection fraction. no major abnormality noted -Will give gabapentin at this time for tingling and nerve pain. (2) History of throat cancer Code(s): Z85.819 - PRSNL HX OF MALIG NEOPLM OF UNSP SITE LIP,ORAL CAV,& PHARYNX Status: Chronic Plan: -Also reported by daughter to have a Kidney mass and R. Lung mass -Sees oncology in [place] -Daughter states patient denied chemo or tx at this time -Need to talk with family about advance directives. Pt stated to daughter he wants to be full code. Yet denies tx and is getting progressively weaker. -Talked with patient about code status. Will consult palliative care to discuss options at this time. (3) Myelodysplastic syndrome Code(s): D46.9 - MYELODYSPLASTIC SYNDROME, UNSPECIFIED Status: Acute Plan: -Has macrocytic anemia with anemia of chronic disease as well. -iron low, ferritin high -Hgb 6.9. Will transfuse 1 unit of packed RBC at this time. -Vit B12 elevated. Folate normal. MCV elevated -FOBT negative -Is on Epogen. On Iron and vitamin supplementation. Will continue home meds (4) Pneumonia Code(s): J18.9 - PNEUMONIA, UNSPECIFIED ORGANISM Status: Acute Qualifiers: Laterality: left Lung location: lower lobe of lung Plan: LLL consolidation noted on CXR -Treating with Rocephin and Flagyl at this time. Likely a component of aspiration pneumonia -Will continue to monitor O2 sats and vital signs at this time. -No fevers overnight (5) Failure to thrive Code(s): DQL9157 - Status: Acute Plan: -Pt has not been eating well last 3 weeks. Having multiple falls and getting progressively weaker. -Dietary consulted -Pureed diet as recommended by speech -Case management consulted as may need placement outpt once discharged. -Will consult palliative care -Hx of cancer. (6) Chronic kidney disease Code(s): N18.9 - CHRONIC KIDNEY DISEASE, UNSPECIFIED Status: Acute Qualifiers: Chronic kidney disease stage: stage 3 (moderate) Qualified Code(s): N18.3 - Chronic kidney disease, stage 3 (moderate) Plan: Cr at baseline when compared to previous visit -Continue IV fluids -Renal U/S shows bilateral cysts. -PTH low. CKD likely stable at this time. (7) Hypertension Code(s): I10 - ESSENTIAL (PRIMARY) HYPERTENSION Status: Acute Plan: -BP stable, no need to restart BP medication at this time. Will continue to monitor and tx as needed <Daryn Renteria - Last Filed: 03/13/17 08:18> Attending Addendum - Attending Addendum I personally evaluated the patient and discussed the management with Dr. Renteria I agree with the History, Examination, Assessment and Plan documented above with any addition or exceptions noted below. He is improving slowly. His speech is better and he is moving his left arm better. Still moderate to severe weakness in his left leg. We are doing PT/OT. His Hgb is 6.9 so we are going to transfuse today. He needs rehab from stroke. We have discussed overall prognosis with his family and they are making a decision related to code status. <Cleve Shaikh - Last Filed: 03/13/17 10:55>
[2017-03-13] MEDS: Docusate Sodium 100 MG/10 ML UDCUP PO SCH ×2 (10:09→20:52)
[2017-03-13] MEDS: Aspirin 300 MG Suppository PR SCH (10:09)
[2017-03-13] MEDS: Megestrol Acetate 800 MG/20 ML UDCUP PO SCH (10:10)
[2017-03-13] MEDS: Gabapentin 300 MG CAP PO SCH ×3 (10:10→20:53)
[2017-03-13] MEDS: Multivitamin W/ Minerals 1 TAB PO SCH (10:11)
[2017-03-13] MEDS: Potassium Chloride 20 MEQ TAB PO SCH (10:11)
[2017-03-13] MEDS ORDERED: Epoetin (ESRD) 10,000 UNITS/ML VIAL SC SCH (10:45)
[2017-03-13] MEDS: Epoetin (ESRD) 10,000 UNITS/ML VIAL SC SCH (15:09)
[2017-03-13] MEDS: cefTRIAXone\\ROCEPHIN 1 GM, Syringe 0.4 ML in Sterile Water 9.6 ML SLOW IVP SCH (15:20)
[2017-03-13] MEDS: Atorvastatin Calcium 20 MG TAB PO SCH (20:53)
[2017-03-13 21:57] LABS: Hematocrit 25.3 % (42.0-52.0)
[2017-03-14] MEDS: metroNIDAZOLE 500 MG in Premix Bag 1 BAG IVPB SCH ×3 (05:12→21:32)
[2017-03-14 05:27] LABS: Anion Gap 13 mmol/L (10-20); BUN (Urea Nitrogen) 22 mg/dL (8.4-25.7); Calc. Creatinine Clearance 44 mL/min (70-130); Carbon Dioxide 18 mmol/L (23-31); Chloride 108 mmol/L (98-107); Estimated GFR-MDRD 77
[2017-03-14 05:41] LABS: Anisocytosis SLIGHT = 6-15 cells (100X) (0-5/hpf); Band 12 % (5-11); Hematocrit 26.2 % (42.0-52.0); Mean Platelet Volume 10.7 fL (7.4-10.4); Neutrophil 46 % (42-75); Nucleated RBC 1 % (0); Red Blood Cell (RBC) Count 2.56 mill/uL (4.70-6.10); Target Cells SLIGHT = 2-5 cells (100X) (0-1/hpf); White Blood Cell (WBC) Count 5.5 thou/uL (4.8-10.8)
[2017-03-14] MEDS: Aspirin 325 MG TAB PO SCH (08:19)
[2017-03-14] MEDS: Gabapentin 300 MG CAP PO SCH (08:19)
[2017-03-14] MEDS: Megestrol Acetate 800 MG/20 ML UDCUP PO SCH (08:19)
[2017-03-14] MEDS: Potassium Chloride 20 MEQ TAB PO SCH (08:19)
[2017-03-14] MEDS: Docusate Sodium 100 MG/10 ML UDCUP PO SCH ×2 (08:19→21:32)
[2017-03-14] MEDS: Multivitamin W/ Minerals 1 TAB PO SCH (08:20)
--- NOTE | 2017-03-14 08:45 | PDOC.FM ---
- Subjective Subjective: Pt reports just feeling weak today. Pt was sleeping when entering the room and was tired when talking with him. Reports his tingling has improved since starting the gabapentin. Denies any other pain. No acute overnight events. - Objective MAR Reviewed: Yes Vital Signs & Weight: Vital Signs (12 hours) Temp Pulse Resp BP Pulse Ox 03/14/17 07:38 98.4 F 99 18 131/72 96 03/14/17 05:30 98.6 F 03/14/17 03:56 99.4 F 74 18 149/73 H 96 03/14/17 00:15 141/75 H 03/14/17 00:08 99.1 F 98 20 192/91 H 94 L 03/13/17 20:50 99.2 F 88 20 98 Weight Admit Weight 61.87 kg Weight 67.495 kg I&O: 03/13/17 03/14/17 03/15/17 06:59 06:59 06:59 Intake Total 1550 2480 350 Output Total 1 Balance 1550 2479 350 Result Diagrams: 03/14/17 04:08 03/14/17 04:08 Radiology Reviewed by me: Yes Radiology: Brain MRI: bilateral supratentorial and infratentorial acute infarctions suggesting embolic picture Carotid Doppler: Negative ECHO: EF 55-60%. mod elevated pulm pressure <Daryn Renteria - Last Filed: 03/14/17 08:45> - Objective Vital Signs & Weight: Vital Signs (12 hours) Temp Pulse Resp BP Pulse Ox 03/14/17 08:00 98.4 F 99 18 96 03/14/17 07:38 98.4 F 99 18 131/72 96 03/14/17 05:30 98.6 F 03/14/17 03:56 99.4 F 74 18 149/73 H 96 03/14/17 00:15 141/75 H 03/14/17 00:08 99.1 F 98 20 192/91 H 94 L Weight Admit Weight 136 lb 6.4 oz Weight 148 lb 12.8 oz I&O: 03/13/17 03/14/17 03/15/17 06:59 06:59 06:59 Intake Total 1550 2480 350 Output Total 1 Balance 1550 2479 350 Result Diagrams: 03/14/17 04:08 03/14/17 04:08 <Cleve Shaikh - Last Filed: 03/14/17 11:26> Phys Exam - Physical Examination HEENT: PERRLA, moist MMs Neck: no nodes, no JVD, supple Respiratory: no wheezing, no rales, no rhonchi, clear to auscultation bilateral Cardiovascular: RRR, no significant murmur, no rub Gastrointestinal: soft, non-tender, no distention, positive bowel sounds Musculoskeletal: no edema, pulses present Facial droop improving. Pt can hold left arm against gravity strength 3/5 Cant lift left leg against gravity. Able to wiggle toes bilat. speech slur Lymphatic: no nodes Psychiatric: normal affect Deviation from normal: Oriented to person. Skin: no rash <Daryn Renteria - Last Filed: 03/14/17 08:45> Dx/Plan (1) CVA (cerebral vascular accident) Code(s): I63.9 - CEREBRAL INFARCTION, UNSPECIFIED Status: Acute Qualifiers: Laterality of affected vessel: left Plan: CVA with residual L. sided weakness. Having tremors on the R. side -Started on Aspirin and Statin -Neurology consulted- Dr. Zamudio, will follow recs -MRI- supratentorial and infratentorial infarctions likely related to emboli -Carotid Doppler negative -PT/OT consulted and will tx -Speech consulted- appreciate recs, placed on pureed diet at this time -Troponins indeterminate, trended down. Likely demand ischemia -ECHO shows normal Ejection fraction. no major abnormality noted -Gabapentin for tingling and nerve pain. Pt states it is helping -Per case managment Pt doesn't recommend rehab, doesn't think pt will tolerate. Awaiting placement per case management and palliative care (2) History of throat cancer Code(s): Z85.819 - PRSNL HX OF MALIG NEOPLM OF UNSP SITE LIP,ORAL CAV,& PHARYNX Status: Chronic Plan: -Also reported by daughter to have a Kidney mass and R. Lung mass -Sees oncology in [place] -Daughter states patient denied chemo or tx at this time -Need to talk with family about advance directives. Has been decided by daughter to be chemical code only at this time.. Yet denies tx and is getting progressively weaker. - Palliative care working with daughter and pt about tx options (3) Myelodysplastic syndrome Code(s): D46.9 - MYELODYSPLASTIC SYNDROME, UNSPECIFIED Status: Acute Plan: -Has macrocytic anemia with anemia of chronic disease as well. -iron low, ferritin high -Hgb 8.0 status post transfusion yesterday. transfused a total of 2uPRBC -Vit B12 elevated. Folate normal. MCV elevated -FOBT negative -Is on Epogen. On Iron and vitamin supplementation. Will continue home meds (4) Pneumonia Code(s): J18.9 - PNEUMONIA, UNSPECIFIED ORGANISM Status: Acute Qualifiers: Laterality: left Lung location: lower lobe of lung Plan: LLL consolidation noted on CXR -Treating with Rocephin and Flagyl at this time. Likely a component of aspiration pneumonia -Will continue to monitor O2 sats and vital signs at this time. -No fevers overnight (5) Failure to thrive Code(s): DQC2549 - Status: Acute Plan: -Pt has not been eating well last 3 weeks. Having multiple falls and getting progressively weaker. -Dietary consulted -Pureed diet as recommended by speech -Case management consulted. working with family to decide on hospice -Palliative care consulted. working with family to discuss care goals -Hx of cancer. (6) Chronic kidney disease Code(s): N18.9 - CHRONIC KIDNEY DISEASE, UNSPECIFIED Status: Acute Qualifiers: Chronic kidney disease stage: stage 3 (moderate) Qualified Code(s): N18.3 - Chronic kidney disease, stage 3 (moderate) Plan: Cr at baseline when compared to previous visit -Continue IV fluids -Renal U/S shows bilateral cysts. -PTH low. CKD likely stable at this time. (7) Hypertension Code(s): I10 - ESSENTIAL (PRIMARY) HYPERTENSION Status: Acute Plan: -BP stable, no need to restart BP medication at this time. Will continue to monitor and tx as needed <Daryn Renteria - Last Filed: 03/14/17 08:45> Attending Addendum - Attending Addendum I personally evaluated the patient and discussed the management with Dr. Renteria I agree with the History, Examination, Assessment and Plan documented above with any addition or exceptions noted below. Patient is sleepy and less responsive today. We did start gabapentin on him yesterday. We will hold that. He is otherwise stable. We are waiting for placement. <Cleve Shaikh - Last Filed: 03/14/17 11:26>
[2017-03-14] MEDS: Epoetin (ESRD) 10,000 UNITS/ML VIAL SC SCH (10:04)
--- NOTE | 2017-03-14 14:21 | PQF ---
CLINICAL DOCUMENTATION IMPROVEMENT CLARIFICATION FORM: ICD-10 Updated PLEASE DO AN ADDENDUM TO THE PROGRESS NOTE WITH ANY DOCUMENTATION UPDATES OR ADDITIONS AND CARRY THROUGH TO DC SUMMARY. THANK YOU. Date: 03/14/17 ATTN: Dr. Renteria/ Attending Dr. Shaikh 03/17/17 Please exercise your independent, professional judgment in responding to the clarification form. Clinical indicators are provided on the bottom of this form for your review Please check appropriate box(s): [ ] Protein Calorie Malnutrition: [ ] Mild [ ] Moderate [ ] Severe [ x ] Other Malnutrition (please specify) Annorexia, not eating [ ] Underweight without malnutrition [ ] Cachexia [ ] Other diagnosis [ ] Unable to determine CLINICAL INDICATORS - SIGNS / SYMPTOMS / LABS ED RECORD: ELDERLY MALE W/ DIFFUSE MUSCLE WASTING IN NO DISTRESS PN 03/13: FAILURE TO THRIVE. PT HAS NOT BEEN EATING WELL LAST 3 WEEKS. 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 03/14: DX: MALNUTRITION R/T ONCOLOGY EVIDENCE BY POOR APPETITE FOR 3+ WEEKS, MUSCLE WASTING OBSERVED TO TEMPLES. RISKS: H&P: MYELODYSPLASTIC SYNDROME W/ MACROCYTIC ANEMIA & SYMPTOMATIC ANEMIA. HX OF THROAT CANCER W/ KIDNEY & LUNG MASS. CKD 3. FAILURE TO THRIVE. PNEUMONIA. STROKE. TREATMENT: CPOE 03/11: CONSULT DIETITIAN: NOT EATING, FAILURE TO THRIVE Thank you, Paulette (This form is maintained as a part of the permanent medical record) 2015 [employer]. All Rights Reserved Paulette Ruelas RN, BSN [email or web address] Office: [phone] [email or web address]
[2017-03-14] MEDS: cefTRIAXone\\ROCEPHIN 1 GM, Syringe 0.4 ML in Sterile Water 9.6 ML SLOW IVP SCH (16:53)
[2017-03-14] MEDS: Atorvastatin Calcium 20 MG TAB PO SCH (21:32)
[2017-03-14] MEDS ORDERED: Gabapentin 300 MG CAP PO SCH ×2 (23:45)
[2017-03-15] MEDS: Melatonin 3 MG TAB PO PRN ×2 (00:28→20:48)
[2017-03-15] MEDS: Acetaminophen 325 MG TAB PO PRN (04:37)
[2017-03-15] MEDS: metroNIDAZOLE 500 MG in Premix Bag 1 BAG IVPB SCH (05:52)
[2017-03-15 06:39] LABS: Anisocytosis SLIGHT = 6-15 cells (100X) (0-5/hpf); Band 1 % (5-11); Elliptocytes SLIGHT = 2-5 cells (100X) (0-1/hpf); Mean Platelet Volume 10.8 fL (7.4-10.4); Neutrophil 44 % (42-75); Red Blood Cell (RBC) Count 2.28 mill/uL (4.70-6.10); Target Cells SLIGHT = 2-5 cells (100X) (0-1/hpf); White Blood Cell (WBC) Count 4.6 thou/uL (4.8-10.8)
[2017-03-15 06:42] LABS: Anion Gap 15 mmol/L (10-20); BUN (Urea Nitrogen) 21 mg/dL (8.4-25.7); Calc. Creatinine Clearance 41 mL/min (70-130); Carbon Dioxide 18 mmol/L (23-31); Chloride 108 mmol/L (98-107); Estimated GFR-MDRD 72
--- NOTE | 2017-03-15 06:51 | PDOC.FM ---
- Subjective Subjective: Pt sleeping when entering the room. Pt resting. Reports doing well. Reports having tingling pain. Son said he was a little restless yesterday afternoon. Otherwise no acute events overnight. No other complaints - Objective MAR Reviewed: Yes Vital Signs & Weight: Vital Signs (12 hours) Temp Pulse Resp BP Pulse Ox 03/15/17 05:18 98.8 F 87 18 163/81 H 94 L 03/15/17 00:34 98.8 F 90 16 142/70 H 97 03/14/17 21:00 98.9 F 86 18 144/72 H 96 03/14/17 20:55 98.9 F 80 16 96 Weight Admit Weight 61.87 kg Weight 67.495 kg I&O: 03/13/17 03/14/17 03/15/17 06:59 06:59 06:59 Intake Total 1550 2480 650 Output Total 1 Balance 1550 2479 650 Result Diagrams: 03/15/17 06:15 03/15/17 06:15 Radiology Reviewed by me: Yes (No new images to review) <Daryn Renteria - Last Filed: 03/15/17 06:49> - Objective Vital Signs & Weight: Vital Signs (12 hours) Temp Pulse Resp BP BP Pulse Ox 03/15/17 08:48 81 133/71 03/15/17 07:51 98.9 F 81 18 97 03/15/17 07:47 98.9 F 81 18 133/71 97 03/15/17 05:18 98.8 F 87 18 163/81 H 94 L 03/15/17 00:34 98.8 F 90 16 142/70 H 97 Weight Admit Weight 136 lb 6.4 oz Weight 148 lb 12.8 oz I&O: 03/14/17 03/15/17 03/16/17 06:59 06:59 06:59 Intake Total 2480 650 Output Total 1 2 Balance 4060 650 -2 Result Diagrams: 03/15/17 06:15 03/15/17 06:15 <Cleve Shaikh - Last Filed: 03/15/17 11:06> Phys Exam - Physical Examination Constitutional: NAD HEENT: moist MMs Neck: no nodes, no JVD, supple Respiratory: no wheezing, no rales, no rhonchi, clear to auscultation bilateral Cardiovascular: RRR, no significant murmur, no rub Gastrointestinal: soft, non-tender, no distention, positive bowel sounds Musculoskeletal: no edema, pulses present Left sided UE, LE weakness. Pt reports tingling. No real improvement on strength. Lymphatic: no nodes Psychiatric: normal affect Skin: no rash <Daryn Renteria - Last Filed: 03/15/17 06:49> Dx/Plan (1) CVA (cerebral vascular accident) Code(s): I63.9 - CEREBRAL INFARCTION, UNSPECIFIED Status: Acute Qualifiers: Laterality of affected vessel: left Plan: CVA with residual L. sided weakness. Having tremors on the R. side -Started on Aspirin and Statin -Neurology consulted- Dr. Zamudio, will follow recs -MRI- supratentorial and infratentorial infarctions likely related to emboli -Carotid Doppler negative -PT/OT consulted and will tx -Speech consulted- appreciate recs, placed on pureed diet at this time -Troponins indeterminate, trended down. Likely demand ischemia -ECHO shows normal Ejection fraction. no major abnormality noted -Gabapentin for tingling and nerve pain. Pt states it is helping. Decreased the dose as yesterday he was more tired and woke up more after being held -Per case managment waiting for Home Health approval which likely wont happen til Friday (2) History of throat cancer Code(s): Z85.819 - PRSNL HX OF MALIG NEOPLM OF UNSP SITE LIP,ORAL CAV,& PHARYNX Status: Chronic Plan: -Also reported by daughter to have a Kidney mass and R. Lung mass -Sees oncology in [place] -Daughter states patient denied chemo or tx at this time -Has been decided by daughter to be chemical code only at this time. OOH DNR signed. -Awaiting home health set up. (3) Myelodysplastic syndrome Code(s): D46.9 - MYELODYSPLASTIC SYNDROME, UNSPECIFIED Status: Acute Plan: -Has macrocytic anemia with anemia of chronic disease as well. -iron low, ferritin high -Hgb 7.3 today. transfused a total of 2uPRBC -Vit B12 elevated. Folate normal. MCV elevated -FOBT negative -Is on Epogen. On Iron and vitamin supplementation. Will continue home meds -Will continue to monitor CBC and assess if sx and tx as needed (4) Failure to thrive Code(s): [id number] - Status: Acute Qualifiers: Failure to thrive age range: in adult Qualified Code(s): R62.7 - Adult failure to thrive Plan: -Pt has not been eating well last 3 weeks. Having multiple falls and getting progressively weaker. -Dietary consulted -Pureed diet as recommended by speech -Case management consulted- awaiting home health setup, will transition to hospice from there. -Palliative care consulted -Hx of cancer. (5) Chronic kidney disease Code(s): N18.9 - CHRONIC KIDNEY DISEASE, UNSPECIFIED Status: Acute Qualifiers: Chronic kidney disease stage: stage 3 (moderate) Qualified Code(s): N18.3 - Chronic kidney disease, stage 3 (moderate) Plan: Cr at baseline when compared to previous visit -tolerating PO. will continue to monitor BMPs and start IV fluids if needed. -Renal U/S shows bilateral cysts. -PTH low. CKD likely stable at this time. (6) Hypertension Code(s): I10 - ESSENTIAL (PRIMARY) HYPERTENSION Status: Acute Plan: -BP a little elevated. Restarted home Amlodipine at this time. (7) Pneumonia Code(s): J18.9 - PNEUMONIA, UNSPECIFIED ORGANISM Status: Resolved Qualifiers: Laterality: left Lung location: lower lobe of lung Plan: LLL consolidation noted on CXR -Rocephin and Flagyl D/C at this time. -Will continue to monitor O2 sats and vital signs at this time. -No fevers. No elevated white count. -Will continue to monitor for sxs <Daryn Renteria - Last Filed: 03/15/17 06:49> Attending Addendum - Attending Addendum I personally evaluated the patient and discussed the management with Dr. Renteria I agree with the History, Examination, Assessment and Plan documented above with any addition or exceptions noted below. Patient is stable, but still weak from his stroke. Given his advance throat cancer, the family wants him to go home with palliative care and home health. [facility] so we can't arrange that until Friday. He is otherwise stable. <Cleve Shaikh - Last Filed: 03/15/17 11:06>
[2017-03-15] MEDS: Aspirin 325 MG TAB PO SCH (08:46)
[2017-03-15] MEDS: Gabapentin 100 MG CAP PO SCH ×3 (08:47→20:47)
[2017-03-15] MEDS: Amlodipine 5 MG TAB PO SCH (08:48)
[2017-03-15] MEDS: Multivitamin W/ Minerals 1 TAB PO SCH (08:48)
[2017-03-15] MEDS: Potassium Chloride 20 MEQ TAB PO SCH (08:48)
[2017-03-15] MEDS: Megestrol Acetate 800 MG/20 ML UDCUP PO SCH (08:49)
[2017-03-15] MEDS: Docusate Sodium 100 MG/10 ML UDCUP PO SCH ×2 (08:49→20:48)
[2017-03-15] MEDS: Epoetin (ESRD) 10,000 UNITS/ML VIAL SC SCH (12:25)
[2017-03-15] MEDS: Atorvastatin Calcium 20 MG TAB PO SCH (20:48)
[2017-03-16] MEDS: Acetaminophen 325 MG TAB PO PRN ×2 (03:34→22:56)
[2017-03-16 07:23] LABS: Band 3 % (5-11); Hematocrit 23.1 % (42.0-52.0); Mean Platelet Volume 10.9 fL (7.4-10.4); Neutrophil 41 % (42-75); Poikilocytosis SLIGHT = 6-15 cells (100X) (0-5/hpf); Red Blood Cell (RBC) Count 2.29 mill/uL (4.70-6.10); White Blood Cell (WBC) Count 4.8 thou/uL (4.8-10.8)
--- NOTE | 2017-03-16 07:28 | PDOC.FM ---
- Subjective Subjective: Pt family states he did not sleep at all last night. States he was restless and seemed more confused. They asked for something to help him relax. Pt denied any pain this morning. Pt was moving L. side better this morning. Denies any chest pain, fevers, or chills. Pt denies any other concerns or complaints at this time. - Objective MAR Reviewed: Yes Vital Signs & Weight: Vital Signs (12 hours) Temp Pulse Resp BP Pulse Ox 03/16/17 04:10 99.8 F H 87 18 147/71 H 96 03/15/17 23:45 98.9 F 91 18 154/81 H 94 L 03/15/17 20:50 98.9 F 81 18 132/69 96 03/15/17 20:00 98.5 F 82 14 96 Weight Admit Weight 61.87 kg Weight 67.495 kg I&O: 03/15/17 03/16/17 03/17/17 06:59 06:59 06:59 Intake Total 650 480 Output Total 2 Balance 650 478 Result Diagrams: 03/16/17 06:55 03/15/17 06:15 <Daryn Renteria - Last Filed: 03/16/17 07:26> - Objective Vital Signs & Weight: Vital Signs (12 hours) Temp Pulse Resp BP BP Pulse Ox 03/16/17 09:23 86 151/70 H 03/16/17 07:27 98.3 F 86 16 151/70 H 94 L 03/16/17 04:10 99.8 F H 87 18 147/71 H 96 03/15/17 23:45 98.9 F 91 18 154/81 H 94 L Weight Admit Weight 136 lb 6.4 oz Weight 148 lb 12.8 oz I&O: 03/15/17 03/16/17 03/17/17 06:59 06:59 06:59 Intake Total 650 480 Output Total 2 Balance 650 478 Result Diagrams: 03/16/17 06:55 03/15/17 06:15 <Cleve Shaikh - Last Filed: 03/16/17 10:50> Phys Exam - Physical Examination HEENT: moist MMs, oral pharynx no lesions Neck: no nodes, no JVD, supple Respiratory: no wheezing, no rales, no rhonchi, clear to auscultation bilateral Cardiovascular: RRR, no significant murmur, no rub Gastrointestinal: soft, non-tender, no distention, positive bowel sounds Musculoskeletal: no edema, pulses present Neurological: moves all 4 limbs L arm strenght 3/5. Unable to lift L. leg against gravity. Movement better Pt reports still having tingling pain. Psychiatric: normal affect Deviation from normal: Oriented to person Skin: no rash <Daryn Renteria - Last Filed: 03/16/17 07:26> Dx/Plan (1) CVA (cerebral vascular accident) Code(s): I63.9 - CEREBRAL INFARCTION, UNSPECIFIED Status: Acute Qualifiers: Laterality of affected vessel: left Plan: CVA with residual L. sided weakness. Having tremors on the R. side -MRI- supratentorial and infratentorial infarctions likely related to emboli -Started on Aspirin and Statin -Neurology consulted- Dr. Zamudio, will follow recs -Carotid Doppler negative -PT/OT consulted and will tx -Speech consulted- appreciate recs, placed on pureed diet at this time -Troponins indeterminate, trended down. Likely demand ischemia -ECHO shows normal Ejection fraction. no major abnormality noted -Gabapentin for tingling and nerve pain. Pt states it is helping. Will increase the dose as pt was irritable and did not sleep last night. -Per case managment waiting for Home Health approval which likely wont happen til Friday (2) History of throat cancer Code(s): Z85.819 - PRSNL HX OF MALIG NEOPLM OF UNSP SITE LIP,ORAL CAV,& PHARYNX Status: Chronic Plan: -Also reported by daughter to have a Kidney mass and R. Lung mass -Sees oncology in [place] -Daughter states patient denied chemo or tx at this time -Has been decided by daughter to be chemical code only at this time. OOH DNR signed. -Awaiting home health set up. (3) Myelodysplastic syndrome Code(s): D46.9 - MYELODYSPLASTIC SYNDROME, UNSPECIFIED Status: Acute Plan: -Has macrocytic anemia with anemia of chronic disease as well. -iron low, ferritin high -Hgb 7.3 today. Stable from yesterday. transfused a total of 2uPRBC -Vit B12 elevated. Folate normal. MCV elevated -FOBT negative -Is on Epogen. On Iron and vitamin supplementation. Will continue home meds -Will continue to monitor CBC and assess if sx and tx as needed (4) Failure to thrive Code(s): [id number] - Status: Acute Qualifiers: Failure to thrive age range: in adult Qualified Code(s): R62.7 - Adult failure to thrive Plan: -Pt has not been eating well last 3 weeks. Having multiple falls and getting progressively weaker. -Dietary consulted -Pureed diet as recommended by speech -Case management consulted- awaiting home health setup, will transition to hospice from there. -Palliative care consulted -Hx of cancer. (5) Chronic kidney disease Code(s): N18.9 - CHRONIC KIDNEY DISEASE, UNSPECIFIED Status: Acute Qualifiers: Chronic kidney disease stage: stage 3 (moderate) Qualified Code(s): N18.3 - Chronic kidney disease, stage 3 (moderate) Plan: Cr at baseline when compared to previous visit -tolerating PO. will continue to monitor BMPs and start IV fluids if needed. -Renal U/S shows bilateral cysts. -PTH low. CKD likely stable at this time. (6) Hypertension Code(s): I10 - ESSENTIAL (PRIMARY) HYPERTENSION Status: Acute Plan: -BP a little elevated. On home BP medication. Will continue to monitor (7) Pneumonia Code(s): J18.9 - PNEUMONIA, UNSPECIFIED ORGANISM Status: Resolved Qualifiers: Laterality: left Lung location: lower lobe of lung Plan: LLL consolidation noted on CXR -Rocephin and Flagyl D/C at this time. -Will continue to monitor O2 sats and vital signs at this time. -No fevers. No elevated white count. -Will continue to monitor for sxs (8) Delirium Code(s): R41.0 - DISORIENTATION, UNSPECIFIED Status: Acute Plan: Pt did not sleep at all last night. Daughter states he was somewhat confused. -On melatonin -May be developing a little delirum from extended hospital stay -Will get pain under control with gabapentin. -May give some seroquel at night to help with sleep <Daryn Renteria - Last Filed: 03/16/17 07:26> Attending Addendum - Attending Addendum I personally evaluated the patient and discussed the management with Dr. Renteria I agree with the History, Examination, Assessment and Plan documented above with any addition or exceptions noted below. We are [facility] a [facility], but [facility] Hopefully tomorrow. He seems to be sundowning some. We will try [place]. <Cleve Shaikh - Last Filed: 03/16/17 10:50>
[2017-03-16] MEDS: Aspirin 325 MG TAB PO SCH (09:23)
[2017-03-16] MEDS: Amlodipine 5 MG TAB PO SCH (09:23)
[2017-03-16] MEDS: Gabapentin 100 MG CAP PO SCH ×3 (09:24→21:10)
[2017-03-16] MEDS: Megestrol Acetate 800 MG/20 ML UDCUP PO SCH (09:24)
[2017-03-16] MEDS: Multivitamin W/ Minerals 1 TAB PO SCH (09:24)
[2017-03-16] MEDS: Potassium Chloride 20 MEQ TAB PO SCH (09:25)
[2017-03-16] MEDS: Docusate Sodium 100 MG/10 ML UDCUP PO SCH ×2 (09:38→21:11)
[2017-03-16] MEDS: Epoetin (ESRD) 10,000 UNITS/ML VIAL SC SCH (10:01)
[2017-03-16] MEDS: Atorvastatin Calcium 20 MG TAB PO SCH (21:10)
[2017-03-16] MEDS: Melatonin 3 MG TAB PO PRN (22:56)
[2017-03-17 06:45] LABS: Anisocytosis SLIGHT = 6-15 cells (100X) (0-5/hpf); Band 1 % (5-11); Hematocrit 22.7 % (42.0-52.0); Macrocytosis SLIGHT = 6-15 cells (100X) (0-5/hpf); Mean Platelet Volume 12.3 fL (7.4-10.4); Neutrophil 40 % (42-75); Nucleated RBC 1 % (0); Red Blood Cell (RBC) Count 2.26 mill/uL (4.70-6.10); White Blood Cell (WBC) Count 4.3 thou/uL (4.8-10.8)
[2017-03-17 07:37] LABS: Anion Gap 14 mmol/L (10-20); BUN (Urea Nitrogen) 21 mg/dL (8.4-25.7); Calc. Creatinine Clearance 45 mL/min (70-130); Calcium 8.3 mg/dL (7.8-10.44); Carbon Dioxide 17 mmol/L (23-31); Chloride 107 mmol/L (98-107); Estimated GFR-MDRD 80
--- NOTE | 2017-03-17 08:06 | PDOC.FM ---
- Subjective Subjective: Pt was sleeping. Pt family reports patient had a much better night. Pt denies any acute events overnight. Denies any tingling or pain at this time. Denies any other sxs. - Objective MAR Reviewed: Yes Vital Signs & Weight: Vital Signs (12 hours) Temp Pulse Resp BP Pulse Ox 03/17/17 04:05 97.6 F 82 20 103/65 99 03/16/17 23:04 99.6 F 88 18 143/70 H 97 03/16/17 20:35 98.8 F 82 16 97 Weight Admit Weight 61.87 kg Weight 66.996 kg I&O: 03/16/17 03/17/17 03/18/17 06:59 06:59 06:59 Intake Total 480 620 Output Total 2 Balance 478 620 Result Diagrams: 03/17/17 06:20 03/17/17 06:20 Radiology Reviewed by me: Yes (No new imaging to review at this time) <Daryn Renteria - Last Filed: 03/17/17 08:04> - Objective Vital Signs & Weight: Vital Signs (12 hours) Temp Pulse Resp BP Pulse Ox 03/17/17 12:05 97.3 F L 89 20 121/58 L 97 03/17/17 09:02 89 03/17/17 08:23 98.9 F 89 20 149/71 H 98 03/17/17 07:30 97.6 F 82 20 03/17/17 04:05 97.6 F 82 20 103/65 99 Weight Admit Weight 61.87 kg Weight 66.996 kg I&O: 03/16/17 03/17/17 03/18/17 06:59 06:59 06:59 Intake Total 480 620 Output Total 2 1 Balance 478 620 -1 Result Diagrams: 03/17/17 06:20 03/17/17 06:20 <Isreal Robledo - Last Filed: 03/17/17 12:17> Phys Exam - Physical Examination Constitutional: NAD HEENT: moist MMs, oral pharynx no lesions Neck: no nodes, no JVD, supple, full ROM Respiratory: no wheezing, no rales, no rhonchi, clear to auscultation bilateral Cardiovascular: RRR, no significant murmur, no rub Gastrointestinal: soft, non-tender, no distention Musculoskeletal: no edema, pulses present Weak proximal muscles in left leg Movement in L. side improved from yesterday. Strength 3/5 in L. arm speech improved. Still a litlle slurred. Follows commands Lymphatic: no nodes Deviation from normal: Oriented to person Skin: no rash, cap refill <2 seconds <MyraDaryn - Last Filed: 03/17/17 08:04> Dx/Plan (1) CVA (cerebral vascular accident) Code(s): I63.9 - CEREBRAL INFARCTION, UNSPECIFIED Status: Acute Qualifiers: Laterality of affected vessel: left Plan: CVA with residual L. sided weakness. Having tremors on the R. side -MRI- supratentorial and infratentorial infarctions likely related to emboli -Started on Aspirin and Statin -Neurology consulted- Dr. Zamudio, will follow recs -Carotid Doppler negative -PT/OT consulted and will tx -Speech consulted- appreciate recs, placed on pureed diet at this time -Troponins indeterminate, trended down. Likely demand ischemia -ECHO shows normal Ejection fraction. no major abnormality noted -Gabapentin for tingling and nerve pain. Pt states it is helping. -Pt is ready for D/C today. Will follow up with [facility] today. Pt doing well on current medicine regimen (2) History of throat cancer Code(s): Z85.819 - PRSNL HX OF MALIG NEOPLM OF UNSP SITE LIP,ORAL CAV,& PHARYNX Status: Chronic Plan: -Also reported by daughter to have a Kidney mass and R. Lung mass -Sees oncology in [place] -Daughter states patient denied chemo or tx at this time -Has been decided by daughter to be chemical code only at this time. OOH DNR signed. -Ready for D/c (3) Myelodysplastic syndrome Code(s): D46.9 - MYELODYSPLASTIC SYNDROME, UNSPECIFIED Status: Acute Plan: -Has macrocytic anemia with anemia of chronic disease as well. -iron low, ferritin high -Hgb 7.2 today. Stable from yesterday. transfused a total of 2uPRBC Asymptomatic at this time. No headaches, dizziness, or increased weakness from baseline -Vit B12 elevated. Folate normal. MCV elevated -FOBT negative -Is on Epogen. On Iron and vitamin supplementation. Will continue home meds -Will continue to monitor CBC and assess if sx and tx as needed (4) Failure to thrive Code(s): [id number] - Status: Acute Qualifiers: Failure to thrive age range: in adult Qualified Code(s): R62.7 - Adult failure to thrive Plan: -Pt has not been eating well last 3 weeks. Having multiple falls and getting progressively weaker. -Dietary consulted -Pureed diet as recommended by speech -Case management consulted- Will have [facility] set up through [place] -Palliative care consulted -Hx of cancer. (5) Chronic kidney disease Code(s): N18.9 - CHRONIC KIDNEY DISEASE, UNSPECIFIED Status: Acute Qualifiers: Chronic kidney disease stage: stage 3 (moderate) Qualified Code(s): N18.3 - Chronic kidney disease, stage 3 (moderate) Plan: Cr at baseline when compared to previous visit -tolerating PO. will continue to monitor BMPs and start IV fluids if needed. -Renal U/S shows bilateral cysts. -PTH low. CKD likely stable at this time. (6) Hypertension Code(s): I10 - ESSENTIAL (PRIMARY) HYPERTENSION Status: Acute Plan: -BP stable. On home BP medication. Will continue to monitor (7) Pneumonia Code(s): J18.9 - PNEUMONIA, UNSPECIFIED ORGANISM Status: Resolved Qualifiers: Laterality: left Lung location: lower lobe of lung Plan: LLL consolidation noted on CXR -Was tx with Rocephin and Flagyl. No need for abx. D/C a few days ago -Will continue to monitor O2 sats and vital signs at this time. -No fevers. No elevated white count. -Will continue to monitor for sxs (8) Delirium Code(s): R41.0 - DISORIENTATION, UNSPECIFIED Status: Acute Plan: Pt did not sleep at all last night. Daughter states he was somewhat confused. -On melatonin -May be developing a little delirum from extended hospital stay -Pain under control with gabapentin -Seroquel HS to help with restlesness and possible delirum. -Pt slept better overnight. Not as restless. will continue with current medication regimen <Daryn Renteria - Last Filed: 03/17/17 08:04> Attending Addendum - Attending Addendum I personally evaluated the patient and discussed the management with Dr. Renteria. I agree with the History, Examination, Assessment and Plan documented above with any addition or exceptions noted below. Patient overall stable and ready to get out of hospital per his report. He has improvement in his neurological function, and we have no further recommendations from neurology. Echo did not show any valvular abnmls that would lead to emboli phenomena. We are working to set up home health for patient at home and he should be ready for discharge after that point. Discharging on ASA, Statin, and good blood pressure control. <Isreal Robledo R - Last Filed: 03/17/17 12:17>
[2017-03-17] MEDS: Docusate Sodium 100 MG/10 ML UDCUP PO SCH (09:01)
[2017-03-17] MEDS: Potassium Chloride 20 MEQ TAB PO SCH (09:02)
[2017-03-17] MEDS: Gabapentin 100 MG CAP PO SCH (09:02)
[2017-03-17] MEDS: Amlodipine 5 MG TAB PO SCH (09:02)
[2017-03-17] MEDS: Aspirin 325 MG TAB PO SCH (09:02)
[2017-03-17] MEDS: Megestrol Acetate 800 MG/20 ML UDCUP PO SCH (09:03)
[2017-03-17] MEDS: Multivitamin W/ Minerals 1 TAB PO SCH (09:03)
[2017-03-17 12:05] VITALS: BP 121/58; TEMP 97.3
[2017-03-17] MEDS: Epoetin (ESRD) 10,000 UNITS/ML VIAL SC SCH (12:17)
[2017-03-17 13:44] VITALS: BMI 21.8
--- NOTE | 2017-03-18 13:54 | DIS-2 ---
DATE OF ADMISSION: 03/11/2017 DATE OF DISCHARGE: 03/17/2017 ADMITTING ATTENDING: Ricki Ray MD DISCHARGE ATTENDING: Isreal Robledo MD CONSULTATIONS: Neurology, Shun Zamudio M.D. PROCEDURES: He did get an echocardiogram which showed left ventricular size normal and an ejection fraction of 55%-60%, normal mitral valve, normal aortic valve, and moderately elevated pulmonary artery pressure. IMAGING: He, on admission, 03/11/2017, got a brain CT which showed limited evaluation due to motion degradation. No acute intracranial process. He got a chest x-ray which showed findings suggestive of left lower lobe and lingular pneumonia, continued follow up recommended. On 03/12/2017, he got a brain MRI which showed limited examination secondary to the patient motion artifact. The only diagnostic quality imaging that could be obtained was diffusion-weighted MRI which demonstrates evidence of bilateral supratentorial and infratentorial acute infarction suggesting an embolic phenomenon. He got a renal ultrasound on 03/12/2017, bilateral renal crystals. He got a carotid Doppler on 03/12/2017 , which showed no evidence of hemodynamically significant stenosis. PRIMARY DISCHARGE DIAGNOSES: 1. Cerebrovascular accident. 2. Failure to thrive. 3. Left lower lobe pneumonia. SECONDARY DIAGNOSES: 1. History of throat cancer with a right lung mass and right kidney mass. He had left-sided back pain. 2. Myelodysplastic syndrome with macrocytic anemia and anemia of chronic disease. He had chronic kidney disease and he had hypertension. HISTORY OF PRESENT ILLNESS AND HOSPITAL COURSE: This is an 89-year-old patient that came in with new onset stroke symptoms and had no left arm and left leg movement, left-sided weakness, and left-sided facial droop that had started the day before at 10:00 at night to 6:00 in the morning by her daughter. Daughter also reported on admission that he had been progressively getting weaker blacking out at home and falling and has not been eating as much and at this time, we were told that he had a history of throat cancer, right lung mass and right kidney mass which he followed Oncology [facility] [place] with the [facility] and had denied further treatment there. Daughter also says that he had been getting forgetful for the last weeks and confused. When the patient was admitted, he had 0/5 strength on the left arm and left leg. No movement on the left side. He had about 4/5 strength in the right side. He did have left-sided facial droop as well, so at this time, we started on an aspirin and statin, consulted Dr. Shun Zamudio with Neurology. We got the MRI which showed the supratentorial and infratentorial infarctions. We consulted Speech for a swallow assessment which at that time they would end up placing him on a pureed diet due to trouble swallowing and thickened liquids. Also with the stroke, he was having slurred speech as well and that is why we got a speech consult. We checked his TSH which was 2.2079 which is normal. His troponin on admission was 0.147, we trended those at 0.143 and 0.139. His albumin was low at 3.2 as suspected as he had not been eating very much. We checked iron studies on him due to myelodysplastic,his iron was low, his TIBC was low, his ferritin was high showing the anemia of chronic disease. On admission on 03/11/2017, his creatinine was 1.53. We would start him on a little bit of fluids and his creatinine would normalize down to 1.2, 1.24, and would be 1.05 on the date of discharge. Other labs, his white blood cell count was normal during his whole time. His hemoglobin was low on admission at 6.5 and with reports of blacking out, we would transfuse him a unit of blood. He would go up to 8.0 on 2016. On 03/13/2017, he dropped back down to 6.9. We would transfuse him with 4 more unit of blood and his hemoglobin on 03/14/2017 went up to 8 and stayed stable at 7.3 for the next few days until discharge. His MCV was elevated at 109. We got a vitamin B12 which was high at 11,052. Folate was normal at 17. This would be expected as he had the known myelodysplastic syndrome. During this time, we started him on the aspirin and statin. Dr. Zamudio was consulted. The patient's blood pressure on admission was 133/60 and would go up to 180/84, was a little elevated. The patient continued to improve the next few days. He got movement back in his left side, not fully, about 3/5. He had proximal muscle weakness in his left leg likely due to some of the failure to thrive. As he has not been eating, we got dietary consulted. He did better eating on the pureed diet. With his pneumonia, the left lower lobe pneumonia in the lingula likely aspiration pneumonia, we started him on Rocephin and Flagyl. We treated with Rocephin and Flagyl until 03/15/2017. During this time, he never had any fevers, never reported any shortness of breath. During the first few days after he was recovering symptoms, the patient reported being irritable and having trouble with tingling pain and spasticity in his right side and tingling pain in his left side as well. At this time, we started him on 300 mg t.i.d. for nerve pain. The next day we came, the patient was a little more tired, a little more groggy, likely pichardo given him too high of a dose. At this time, we held the gabapentin. The next day, he would report having some of the tingling pain back again, so this time we started him back on gabapentin at 100 mg t.i.d. The patient's family also reported that he had not slept very well the last night, had been a little more confused, so we gave him some Seroquel the next night for delirium. Came back the next day, he still had a little bit of tingling, irritability, and we gave him gabapentin at 200 mg. This would seem to help him very well at this time during this visit as well as the patient was more bedbound. We got PT and OT to assess him. They recommended that he was not a good candidate for rehabilitation and recommended assisted placement or home. At this time, with his history of cancer and him not eating well and him denying chemotherapy, we discussed the prognosis for this patient. At this time, we consulted Palliative Care to come and talk with the family. At this time, they decided that they would want to take the patient home on Home Health and likely transition to hospice care from then. The patient had [employer] insurance and we sent in the paperwork on Friday and did not hear back that he had a Home health set up until Friday, so the patient hung out with us over the weekend. At this time, we continued to adjust his gabapentin and adjust medications for pain control. During this time, he continued to improve, speech got better, PT and OT continued to work with him. Finally, on 03/17/2017, he had Home Health set up and was ready to be discharged home and so we discharged him home. DISPOSITION: Guarded. DISCHARGE INSTRUCTIONS: 1. Location: Home with Home Health. 2. Diet: Regular diet, pureed with speech recommendation. 3. Activity: Activity as tolerated, likely decreased movement due to stroke. 4. Followup: We will need to follow up with his primary care provider within the next few weeks for hospital followup. Also, need to follow up with his oncologist as he had an appointment during the time he was here in the hospital. KARLI
== END 2017-03-17 15:12 | disposition home health service (06) | DRG 64 ==
LOC: ERS 09:34 → 2SE 14:51 → ERS 16:07
PROVIDERS: ADMIT Internal Medicine; ATTEND Internal Medicine
PROC: 30233N1 Transfusion of Nonautologous Red Blood Cells into Peripheral Vein, Percutaneous Approach (ICD-10-PCS; principal; 2017-03-11)
DX: I63.9 Cerebral infarction, unspecified (principal); J18.9 Pneumonia, unspecified organism; G81.94 Hemiplegia, unspecified affecting left nondominant side; N18.3 Chronic kidney disease, stage 3 (moderate); D53.9 Nutritional anemia, unspecified; R63.0 Anorexia; D46.9 Myelodysplastic syndrome, unspecified; R62.7 Adult failure to thrive; I12.9 Hypertensive chronic kidney disease with stage 1 through stage 4 chronic kidney disease, or unspecified chronic kidney disease; Z85.819 Personal history of malignant neoplasm of unspecified site of lip, oral cavity, and pharynx; R41.0 Disorientation, unspecified
CPT/HCPCS: 36415; 36416; 36430; 70450; 70551; 71010; 76770; 80048; 80053; 80061; 82274; 82553; 82607; 82728; 82746; 83036; 83540; 83550; 83735; 83970; 84100; 84443; 84484; 85025; 85610; 85730; 86850; 86900; 86901; 93005; 93306; 93880; 96365; 96375; A4216; G8978-GP-CM; G8979-GP-CK; G8987-GO-CM; G8988-GO-CK; G8996-GN-CK; G8997-GN-CK; J0456; J0696; J7050; P9016; Q4081

== ENCOUNTER 2017-03-26 11:47 | Inpatient (IN) | payer MEDICARE ==
--- NOTE | 2017-03-26 12:23 | RAD ---
ONE VIEW CHEST: History: Cough. Comparison: 03-27-15 FINDINGS: Normal cardiac silhouette. The pulmonary vessels and hilum are normal. Costophrenic angles are clear. Patchy interstitial and alveolar infiltrates throughout the lung parenchyma suggesting multifocal pn eumonia. No pneumothorax or osseous abnormalities. Stable linear density projects over the left hemithorax. IMPRESSION: Multiple focal interstitial and alveolar opacities, presumed to be due to pneumonia. POS: [facility]
[2017-03-26 12:37] LABS: Oxyhemoglobin 95.7 % (94.0-97.0); Sodium 139 mmol/L (135-148)
[2017-03-26 12:41] LABS: Mode NRB; Modified Allen's Test POSITIVE; Vent NO
[2017-03-26 12:42] LABS: Hematocrit 21.8 % (42.0-52.0); Mean Platelet Volume 10.3 fL (7.4-10.4); Red Blood Cell (RBC) Count 2.15 mill/uL (4.70-6.10); White Blood Cell (WBC) Count 15.9 thou/uL (4.8-10.8)
[2017-03-26 12:53] LABS: Bilirubin Negative (Negative); Blood, Urine Negative (Negative); Glucose, Urine (Dipstick) Negative (Negative); Ketone, Urine Negative (Negative); Nitrite Negative (Negative); Protein, Urine (Dipstick) Negative (Neg-Trace); Urobilinogen 0.2 mg/dL (0.2-1.0)
[2017-03-26 12:56] LABS: Lactic Acid - Sepsis 2.8 mmol/L (0.5-2.2)
[2017-03-26 13:02] LABS: ALT (SGPT) 49 U/L (8-55); AST (SGOT) 114 U/L (5-34); Alkaline Phosphatase 107 U/L (40-150); Anion Gap 20 mmol/L (10-20); BUN (Urea Nitrogen) 36 mg/dL (8.4-25.7); Bilirubin, Total 0.7 mg/dL (0.2-1.2); Calc. Creatinine Clearance 0 mL/min (70-130); Calcium 9.3 mg/dL (7.8-10.44); Carbon Dioxide 16 mmol/L (23-31); Chloride 106 mmol/L (98-107); Estimated GFR-MDRD 37; Globulin 5.9 g/dL (2.4-3.5); Protein, Total 9.2 g/dL (5.8-8.1)
[2017-03-26] MEDS ORDERED: Succinylcholine Chloride 20 MG/ML 10 ml SYRINGE FS ONE (13:03)
[2017-03-26 13:09] LABS: Band 18 % (5-11); Hypochromia SLIGHT = 6-15 cells (100X) (0-5/hpf); Neutrophil 60 % (42-75); Nucleated RBC 1 % (0); Polychromasia SLIGHT = 2-3 cells (100X) (0-2/hpf); Rouleaux Formation MODERATE= 6-15 cells (100X) (None Seen); Schistocytes SLIGHT = 2-5 cells (100X) (0-1/hpf); Target Cells SLIGHT = 2-5 cells (100X) (0-1/hpf)
[2017-03-26] MEDS ORDERED: Propofol 1,000 MG/100 ML VIAL IV ONE (13:34)
[2017-03-26 13:43] LABS: Mechanical Tidal Volume 400 ml; Mode SIMV/PS; Oxyhemoglobin 97.2 % (94.0-97.0); Pressure Support 10 cmH2O; Sodium 139 mmol/L (135-148); Spontaneous Rate 21 min; Vent YES
--- NOTE | 2017-03-26 14:26 | RAD ---
CHEST ONE VIEW: History: Altered mental status. Intubated. Comparison: 03-26-17 FINDINGS: Cardiac silhouette is magnified by projection. Pulmonary vasculature is upper limits of normal. There is atelectasis of the right lung compared to the left. Tracheal catheter overlies the thoracic inlet . Nasogastric tube descends to the abdomen. Patchy infiltrates overlie each lung base. Curvilinear th in metallic density projecting over the left chest is unchanged in appearance from the previous exam. IMPRESSION: 1. Endotracheal catheter is in good radiographic position. 2. Patchy infiltrates are unchanged from the most recent exam. POS: [facility]
--- NOTE | 2017-03-26 14:29 | RAD ---
ABDOMEN ONE VIEW: History: Nasogastric tube placement. FINDINGS: Visualized bowel gas pattern is nonspecific. Nasogastric tube descends to the abdomen with proximal p ort at the level of the GE junction. IMPRESSION: Nasogastric tube descends to the abdomen. Advancement of the tube approximately 8 cm would probably r esult in better positioning. POS: [facility]
[2017-03-26] MEDS ORDERED: Piperacillin/Tazobactam 3.375 GM in Sodium Chloride 0.9% 100 ML IVPB SCH (14:45)
[2017-03-26 14:58] LABS: Troponin I 0.816 ng/mL (< 0.028)
[2017-03-26] MEDS ORDERED: Piperacillin/Tazobactam 2.25 GM in Sodium Chloride 0.9% 100 ML IVPB SCH ×2 (16:00→23:59)
--- NOTE | 2017-03-26 16:07 | HP ---
PRIMARY CARE PHYSICIAN: [place] Dr. Darren Kingsley. REASON FOR ADMISSION: This is city call admission, acute respiratory failure, sepsis with acute orga n dysfunction, hyperkalemia, and acute encephalopathy. HISTORY OF PRESENT ILLNESS: An 89-year-old male who was recently admitted in our hospital under [facility] medicine. At that time, patient was diagnosed with stroke. He presented to the hospital with lef t upper and lower extremity weakness. MRI confirmed stroke. The patient was discharged home on 03/05. Patient was living at home with his brother. Family member are present at bedside who repor ts that patient was not eating and drinking enough. He was on modified diet, but his p.o. intake was widely limited. He was also having generalized weakness for last 2-3 days. He started having cough after eating any kind of food. He was having increasing cough for the last couple of days and last night he got high grade fever. The patient was given routine medication for fever. This morning, magdalene valenzuela was completely less responsive. He was more lethargic and appeared altered and that is why [facility] member brought him to emergency room. In the emergency room, patient was febrile, tachycardic and hypoxic. He was saturating only 85% and that is why patient required intubation. Patient has chest x-ray which is showing multifocal infiltration. Patient was started on broad spect rum antibiotic therapy in the emergency room. I spoke with Dr. Sorto about intubation status and we a re going to admit this patient in CCU for further management. Routine blood tests today showed leukocytosis with bandemia, acute kidney failure, hyperkalemia and l actic acidosis. PAST MEDICAL HISTORY: History of throat cancer; myelodysplastic syndrome; hypertension; history of C [facility] bilateral but patient has predominantly weakness on the left side; he has oropharyngeal dysphagia, on modified diet; dyslipidemia; peripheral neuropathy; protein calorie malnutrition, moderate to sev ere; benign enlargement of prostate. PAST SURGICAL HISTORY: Patient is currently intubated and family member does not have any good detai led surgical history with patient, so unable to review at this point. PAST PSYCHIATRIC HISTORY: Anxiety and depression. ALLERGIES: SULFA DRUGS. CURRENT HOME MEDICATIONS: The patient's family member did not bring their home medication, but deloris flores was discharged on following medications. The patient is on amlodipine 5 mg p.o. daily, aspirin 81 mg p.o. daily, Lipitor 20 mg p.o. at bedtime, Colace 200 mg p.o. b.i.d., Epogen subcu every week, ga bapentin 200 mg t.i.d., Megace daily, melatonin 3 mg p.o. at bedtime p.r.n., multivitamin 1 tablet p. o. daily, potassium chloride 20 mEq p.o. daily, pyridoxine 50 mg p.o. daily, Seroquel 25 mg p.o. at b edtime, terazosin 4 mg p.o. at bedtime, tramadol 50 mg q.i.d. p.r.n. SOCIAL HISTORY: Patient lives with brother. No history of tobacco, alcohol or illicit drug abuse. He mostly remains in bed. He does not use his left side of the body, but he is able to talk and he i s able to use the right upper extremity. FAMILY HISTORY: Daughter and both has G6PD deficiency, but parenteral history unknown. REVIEW OF SYSTEMS: All review of systems tried to review with the patient, but unable to review at t his point because of encephalopathy and subsequently patient required intubation in the emergency wilber , so unable to review at this point. EMERGENCY ROOM COURSE: Patient required intubation for hypoxia. Vancomycin and Zosyn is given. IV fluid is given. Propofol given for sedation. Amidate and Quelicin given before intubation. PHYSICAL EXAMINATION: VITAL SIGNS: Currently, blood pressure 112/61, pulse 113, respiratory rate 24, temperature 99.6, sat uration 85% with nonrebreather, and weight 62.6 kilograms. GENERAL: Patient is currently emaciated. Appears dry, very weak, altered, tachycardic and hypoxic. HEAD: Normocephalic, atraumatic. EYES: Shrunken eyeball. Pupils are round and reactive to light. Extraocular muscle intact. ENT: Dry mucous membranes, no oral lesions, no pharyngeal erythema, no exudate. Endotracheal tube i n place. NECK: Supple, no JVD, no thyromegaly, no carotid bruit, no meningeal signs of irritation. LUNGS: Coarse breath sounds bilaterally, especially on the right side. End expiratory wheezing hear d. Few scattered rales noted. No accessory muscles of respiration in use. CARDIAC: S1 and S2 regular, tachycardia, no murmur, no gallop, no rub. ABDOMEN: Soft, bowel sounds present, nontender, nondistended. No organomegaly, no mass, no suprapub ic tenderness. BACK: Examination unremarkable, no CVA tenderness. EXTREMITIES: Upper extremity passive movements of all joints are normal. Lower extremity; patient h as peripheral IV access in both lower extremities, no edema. Good peripheral pulsation. SKIN: Very dry. No rash. NEUROLOGIC: Currently, patient is intubated and sedated. So unable to do detailed neurological exam ination. Before intubation, patient was struggling with breathing, follows simple commands. IMAGING AND SIGNIFICANT LABORATORY DATA: 1. EKG based on my review, sinus tachycardia, incomplete right bundle branch block pattern. 2. Chest x-ray, multiple focal interstitial and alveolar opacity consistent with pneumonia. Repeat chest x-ray, endotracheal catheter in good radiographic position and patchy infiltration. 3. X-ray abdomen showing nasogastric tube in place. 4. CBC: WBC 15.9, hemoglobin 7.2, MCV 101.0, platelet 235 with bandemia. 5. ABG: pH 7.43, CO2 28.7, O2 107.9, saturation 98.3, bicarbonate 18.5. 6. BMP: Sodium 136, potassium 6.1, chloride 106, carbon dioxide 16, BUN 36, creatinine 2.04, glucos e 95, calcium 9.3, lactic acid 2.8. 7. LFT: AST 114, ALT 49, alkaline phosphatase 107, albumin 3.3. BNP 74.5. Urinalysis normal. ASSESSMENT AND PLAN/IMPRESSION: 1. Acute encephalopathy due to sepsis, metabolic etiology. Patient has a recent stroke as well. At this point, patient will require treatment for underlying acute kidney failure as well as pneumonia and we will monitor his neurological status. 2. Sepsis with acute organ dysfunction. This patient has encephalopathy, acute kidney failure, hypo xic respiratory failure. Source of infection is pneumonia. I am suspecting aspiration pneumonia giv en his oropharyngeal dysphagia from stroke. Patient will be given broad spectrum antibiotic therapy with vancomycin and Zosyn. 3. Acute hypoxic respiratory failure, likely due to underlying aspiration pneumonia. Patient has re quired intubation. Pulmonary group will be consulted for vent management. I spoke with Dr. Sorto and notified about this patient's condition. Initial vent setting adjusted in the Emergency Room. 4. Acute kidney failure, prerenal etiology. This patient has very limited p.o. intake, given his or opharyngeal dysphagia, this patient may need PEG tube placement if he does not have any significant p .o. intake. Patient will be given IV fluid and we will monitor renal function. 5. Lactic acidosis with metabolic acidosis due to sepsis and renal failure. Patient will be given I V fluid and antibiotic therapy and we will repeat labs tomorrow. 6. Hyperkalemia, likely due to metabolic acidosis as well as iatrogenic from potassium supplementati on at home. 7. Anemia with macrocytosis. We will repeat CBC tomorrow. We will consider blood transfusion while in hospital if hemoglobin is below 7. Given sepsis, we will transfuse 1 unit of blood transfusion t delicia as well. We will also consider folic acid and vitamin B12 therapy while in hospital. 8. History of cerebrovascular accident. We will continue aspirin 300 mg per rectum daily along with Lipitor 20 mg p.o. per tube at bedtime. If blood pressure permits, then we will resume blood pressu re medication. 9. Severe protein calorie malnutrition, likely due to poor p.o. intake from stroke. The patient magalys l need nutritional supplement. At this point, we will resume tube feeding when feasible and patient will need PEG tube evaluation during this admission. 10. Deep venous thrombosis prophylaxis, heparin 5000 units subcu twice daily. 11. Gastrointestinal prophylaxis, Protonix 40 mg IV daily. 12. Code status: The patient is FULL CODE. Patient's grandson is surrogate decision maker. Disposition plan based on clinical course. Condition is critical. Total time spent providing critical care to this patient was 35 minutes in the Emergency Room. Plan of care updated to patient's family member at bedside.
[2017-03-26] MEDS ORDERED: Milk Of Magnesia 30 ML UDCUP PER TUBE PRN (16:23)
[2017-03-26] MEDS ORDERED: Loperamide HCl 2 MG CAP PER TUBE PRN (16:23)
[2017-03-26] MEDS ORDERED: Diabetic Tussin 200 MG/10 ML UDCUP PER TUBE PRN (16:23)
[2017-03-26] MEDS ORDERED: hydrALAZINE 20 MG/ML VIAL SLOW IVP PRN (16:23)
[2017-03-26] MEDS ORDERED: Eucerin (Mineral Oil/Petrolatum,White) 30 gm Jar TOP PRN (16:23)
[2017-03-26] MEDS ORDERED: Acetaminophen 325 MG TAB PER TUBE PRN (16:23)
[2017-03-26] MEDS ORDERED: Ondansetron HCl/PF 4 MG/2 ML Vial IVP PRN (16:23)
[2017-03-26] MEDS ORDERED: Bisacodyl 10 MG SUPP PR PRN (16:23)
[2017-03-26] MEDS ORDERED: Labetalol HCl 100 MG/20 ML VIAL SLOW IVP PRN (16:23)
[2017-03-26] MEDS ORDERED: Artificial Tear Sol 15 ML BOT EA EYE PRN (16:23)
[2017-03-26] MEDS ORDERED: Mag-Al 1200 mg/1200 mg/30 ML UDCUP PER TUBE PRN (16:23)
[2017-03-26] MEDS ORDERED: Sodium Chloride 0.65% Nasal 44 ML BOT EA NARE PRN (16:23)
[2017-03-26] MEDS: Dextrose 5 % And 0.9 % NaCl 1,000 ML IV SCH (17:12)
[2017-03-26] MEDS: Piperacillin/Tazobactam 2.25 GM in Sodium Chloride 0.9% 100 ML IVPB SCH ×2 (17:12→23:36)
[2017-03-26] MEDS ORDERED: Propofol 1,000 MG/100 ML VIAL IV PRN (18:22)
[2017-03-26] MEDS ORDERED: Fentanyl 20 MCG/ML 250 ML IVPB SCH (18:22)
[2017-03-26] MEDS ORDERED: Lorazepam 2 MG/ML VIAL SLOW IVP PRN (18:22)
[2017-03-26] MEDS ORDERED: DISCONTINUE PREVIOUS NARCOTIC PAIN MEDICATIONS AND BENZODIAZEPINES FS SCH (18:22)
[2017-03-26] MEDS ORDERED: Morphine PF 1 MG/ML SYR IVP PRN (18:27)
[2017-03-26 18:36] LABS: Troponin I 1.066 ng/mL (< 0.028)
[2017-03-26] MEDS: Heparin 5,000 UNITS/ML VIAL SC SCH (20:19)
[2017-03-26] MEDS: Atorvastatin Calcium 20 MG TAB PER TUBE SCH (20:19)
--- NOTE | 2017-03-26 20:31 | CON ---
DATE OF CONSULTATION: 03/26/2017 REASON FOR CONSULTATION: Elevated troponin. REFERRING PROVIDER: Dr. Yang. HISTORY OF PRESENT ILLNESS: Mr. Pires is an unfortunate 89-year-old gentleman who has an extensive p ast medical history. He recently presented with hyperkalemia in addition to acute encephalopathy. H e required subsequent intubation. Troponin was performed, it was 0.8. His hemoglobin was also 7.2. History cannot be obtained from the patient. PAST MEDICAL HISTORY: CVA, hypertension, throat cancer, myelodysplastic syndrome and BPH. ALLERGIES: SULFA. HOME MEDICATIONS: Amlodipine, aspirin, Lipitor, Colace, Epogen, Megace, potassium, multivitamin, bibi atonin, Seroquel, terazosin and tramadol. SOCIAL HISTORY: No current tobacco or alcohol use. REVIEW OF SYSTEMS: Unobtainable. PHYSICAL EXAMINATION: GENERAL: He is currently intubated and appears his stated age. VITAL SIGNS: Blood pressure 112/40, pulse 102, respirations 20 and temperature 99.9. NEUROLOGIC: The patient is alert and oriented times 3 with no focal neurologic deficits. HEENT: Sclerae without icterus. Mouth has moist mucous membranes with normal pallor. NECK: No JVD. Carotid upstroke brisk. No bruits bilaterally. LUNGS: Clear to auscultation with unlabored respirations. BACK: No scoliosis or kyphosis. CARDIAC: Regular rate and rhythm with normal S1 and S2. No S3 or S4 noted. No significant rubs, mu rmurs, thrills, or gallops noted throughout the precordium. PMI is not displaced. There is no antwon ternal heave. ABDOMEN: Soft, nontender, nondistended. No peritoneal signs present. No hepatosplenomegaly. No abn ormal striae. EXTREMITIES: 2+ femoral and 2+ dorsalis pedis pulses. No cyanosis, clubbing, or edema. SKIN: No gross abnormalities. PERTINENT LABS: Include a hemoglobin of 7.2, platelet count of 235 and white blood cell count of 15, 000. Creatinine 2.04 and troponin is 0.0816. IMPRESSION: 1. Elevated troponin. 2. Anemia. 3. Respiratory failure. 4. Acute kidney injury. RECOMMENDATIONS: Patient's elevated troponin is likely related to demand ischemia. He is severely a nemic with renal insufficiency in addition to respiratory failure. He also appears to have hematemes is in addition to hemoptysis. At this point, we would recommend conservative therapy. EKG does not show acute changes. We will hold aspirin in addition to heparin and Lovenox. Would manage his blood pressure and heart rate appropriately and will add beta-tessie therapy if tolerated. We would manoj mmend transfusion in addition to antibiotic therapy.
[2017-03-26 21:21] LABS: Critical Call Chem Troponin I RESULT DECREASING; Troponin I 0.818 ng/mL (< 0.028)
--- NOTE | 2017-03-26 23:57 | CON ---
DATE OF CONSULTATION: 03/26/2017 HISTORY OF PRESENT ILLNESS: An 89-year-old gentleman who was recently discharged fr om the hospital on 03/20/2017. He presented to the ER on 03/26 with with change in mental status. Devon kelley is intubated in the ER for mental status changes. I spoke to his daughter at the bedside, who stat es that he normally seeks care at the [facility]. He has been essentially severely disabled for an extended period of time, not been much walking. He has no local physician that he sees here. He presented with left-sided weakness and MRI of the brain shows evidence of embolic phenomenon with CVA. The daughter says that they wanted to be intubated but did not want any chest compression. He has multiple issues. PAST MEDICAL HISTORY: Pertinent for apparently a throat cancer, myelodysplastic syndrome, and a oma l and a lung mass from previous workup by the oncologist probably at the [facility]. He is presently intubated obviously unable to get additional information. Past medical history other tavares known metastatic disease in throat, myelodysplastic syndrome, hypertension, kidney cancer, CVA, severely deconditioning arthritis. PAST SURGICAL HISTORY: Otherwise included apparently none except for some throat procedures done. SOCIAL HISTORY: No alcohol, tobacco abuse recently, former history of tobacco abuse. MEDICATIONS: His list of medications includes tramadol, Pradaxa 50, trazodone 4 mg, Seroquel 25, pot assium, melatonin, Megace, gabapentin, Epogen, aspirin, amlodipine. Recently one of his blood pressu re medications was decreased because of this low blood pressure in [place]. REVIEW OF SYSTEMS: Unobtainable. He is sedated, vented. PHYSICAL EXAMINATION: GENERAL: Sats 97% to 98%, pulse 88, blood pressure 120/80. CHEST: Reveals decreased breath sounds. No wheezing. CARDIAC: Normal S1, S2. No gallops. ABDOMEN: Soft. No masses. LABORATORY DATA AND IMAGING: X-rays showed bilateral pneumonia. Additional lab shows white count 15, H and H are 7 and 21, platelet count 235, 60 segs, 20% total mon ocytes, 18 bands. PO2 of 204, pCO2 29, pH 7.43, rate of 10, 400 tidal volume, FiO2 100%. Potassium 6.1, BUN and creatinine 36 and 2.04. X-ray of the abdomen was done to check his NG tube. Recent CVA, which on recent MRI showed evidence of multiple bilateral supratentorial and infratentori al infarction acute, felt to be embolic, though he has echocardiogram done at the same time, did not show evidence of any vegetation or stenosis. CT of his head done, on the same admission a week ago, did not show any problems. IMPRESSION: 1. Recent cerebrovascular accident, encephalopathy metabolic. 2. Multiple medical problems, myelodysplastic syndrome. 3. History of renal failure. 4. 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 5. Failure to thrive. 6. Tobacco abuse. 7. Pneumonia. As noted before, we spoke to his daughter, she wants to continue vent support, but she did not want a ny CPR. Minimize sedation. Continue home medication, empiric antibiotics, neb treatments, supportiv e care. We will wean when stable. 45 minutes critical care time.
[2017-03-27] MEDS: Dextrose 5 % And 0.9 % NaCl 1,000 ML IV SCH ×2 (03:18→08:38)
[2017-03-27] MEDS: Piperacillin/Tazobactam 2.25 GM in Sodium Chloride 0.9% 100 ML IVPB SCH ×3 (05:10→17:33)
[2017-03-27 05:16] LABS: ALT (SGPT) 37 U/L (8-55); AST (SGOT) 69 U/L (5-34); Alkaline Phosphatase 87 U/L (40-150); Anion Gap 15 mmol/L (10-20); BUN (Urea Nitrogen) 34 mg/dL (8.4-25.7); Bilirubin, Direct 0.5 mg/dL (0.1-0.3); Bilirubin, Total 0.7 mg/dL (0.2-1.2); Calc. Creatinine Clearance 25 mL/min (70-130); Carbon Dioxide 15 mmol/L (23-31); Chloride 112 mmol/L (98-107); Estimated GFR-MDRD 44
[2017-03-27 05:26] LABS: Anisocytosis MODERATE=16-30 cells (100X) (0-5/hpf); Band 28 % (5-11); Hematocrit 22.1 % (42.0-52.0); Mean Platelet Volume 11.2 fL (7.4-10.4); Neutrophil 66 % (42-75); Ovalocytes SLIGHT = 2-5 cells (100X) (0-1/hpf); Red Blood Cell (RBC) Count 2.23 mill/uL (4.70-6.10); White Blood Cell (WBC) Count 17.3 thou/uL (4.8-10.8)
[2017-03-27] MEDS: Saccharomyces boulardii 250 MG CAP PO SCH (08:38)
[2017-03-27] MEDS: Heparin 5,000 UNITS/ML VIAL SC SCH ×2 (08:38→20:20)
[2017-03-27] MEDS: Aspirin 325 MG TAB PER TUBE SCH (08:38)
[2017-03-27] MEDS: Cyanocobalamin (Vitamin B-12) 1,000 MCG TAB PER TUBE SCH (08:38)
[2017-03-27] MEDS: Folic Acid 1 MG TAB PER TUBE SCH (08:38)
[2017-03-27 08:39] LABS: Mode PSV; Modified Allen's Test NOT DONE; Oxyhemoglobin 95.8 % (94.0-97.0); Pressure Support 10 cmH2O; Sodium 142 mmol/L (135-148); Vent YES
[2017-03-27] MEDS: Dextrose 5% in Water 1,000 ML IV SCH ×2 (09:30→20:19)
--- NOTE | 2017-03-27 10:46 | PDOC.PN ---
- Subjective Encounter Start Date: 03/27/17 Encounter Start Time: 07:00 -: old records requested/rev pt is doing well, sedation on hold, now on CPAP, awake and follows simple command Patient seen and examined. No overnight events - Objective Resuscitation Status: Resuscitation Status FULL:Full Resuscitation MAR Reviewed: Yes Vital Signs & Weight: Vital Signs (12 hours) Temp Pulse Resp BP Pulse Ox 03/27/17 10:00 21 H 03/27/17 08:00 99.0 F 98 22 H 100 03/27/17 07:08 100 119/51 L 100 03/27/17 07:06 99 23 H 100 03/27/17 06:00 21 H 03/27/17 04:00 98.9 F 27 H 03/27/17 02:00 22 H 03/26/17 23:58 18 03/26/17 23:56 99.8 F H 03/26/17 23:37 93 20 Weight Weight 135 lb 11.2 oz Most Recent Monitor Data Heart Rate from ECG 97 NIBP 121/58 NIBP BP-Mean 65 Respiration from ECG 23 SpO2 86 I&O: 03/26/17 03/27/17 03/28/17 06:59 06:59 06:59 Intake Total 2394 120 Output Total 453 150 Balance 1940 Result Diagrams: 03/27/17 03:46 03/27/17 03:45 Radiology Reviewed by me: Yes (chest xray) EKG Reviewed by me: Yes (nsr) Phys Exam - Physical Examination Constitutional: NAD intubated, awake HEENT: PERRLA, moist MMs, sclera anicteric Neck: no JVD, supple Respiratory: no wheezing, no rales, no rhonchi reduced air entry Cardiovascular: RRR, no significant murmur, no rub Gastrointestinal: soft, non-tender, no distention Musculoskeletal: no edema, pulses present left side weakness Lymphatic: no nodes Psychiatric: normal affect Skin: no rash, normal turgor Dx/Plan (1) Acute kidney failure Status: Acute (2) Acute respiratory failure with hypoxia Code(s): J96.01 - ACUTE RESPIRATORY FAILURE WITH HYPOXIA Status: Acute (3) Aspiration pneumonia Code(s): J69.0 - PNEUMONITIS DUE TO INHALATION OF FOOD AND VOMIT Status: Acute (4) Demand ischemia of myocardium Code(s): I24.8 - OTHER FORMS OF ACUTE ISCHEMIC HEART DISEASE Status: Acute (5) Encephalopathy acute Code(s): G93.40 - ENCEPHALOPATHY, UNSPECIFIED Status: Acute (6) Hyperkalemia Code(s): E87.5 - HYPERKALEMIA Status: Resolved (7) Metabolic acidosis Code(s): E87.2 - ACIDOSIS Status: Acute (8) Sepsis with acute organ dysfunction Code(s): A41.9 - SEPSIS, UNSPECIFIED ORGANISM; R65.20 - SEVERE SEPSIS WITHOUT SEPTIC SHOCK Status: Acute (9) Anemia, macrocytic Code(s): D53.9 - NUTRITIONAL ANEMIA, UNSPECIFIED Status: Chronic (10) H/O: CVA (cerebrovascular accident) Code(s): Z86.73 - PRSNL HX OF TIA (TIA), AND CEREB INFRC W/O RESID DEFICITS Status: Chronic (11) History of throat cancer Code(s): Z85.819 - PRSNL HX OF MALIG NEOPLM OF UNSP SITE LIP,ORAL CAV,& PHARYNX Status: Chronic (12) Oropharyngeal dysphagia Code(s): R13.12 - DYSPHAGIA, OROPHARYNGEAL PHASE Status: Chronic (13) Physical deconditioning Code(s): R53.81 - OTHER MALAISE Status: Chronic (14) Protein-calorie malnutrition, moderate Code(s): E44.0 - MODERATE PROTEIN-CALORIE MALNUTRITION Status: Chronic - Plan cont current plan of care, khan catheter, continue antibiotics, respiratory therapy * medication reviewed as below * symptomatic treatment * possible extubation later today * follow culture * continue vancomycin and zosyn * will transfuse 1 unit prbc * repeat labs tomorrow * renal function is improving * will do speech consult after extubation. * add folic acid, vitamin b12, ferrous sulfate * cardiology consulted Review of Systems - Review of Systems Other: unable to review as pt is intubated - Medications/Allergies Allergies/Adverse Reactions: Allergies Allergy/AdvReac Type Severity Reaction Status Date / Time Sulfa (Sulfonamide Allergy Intermediate Verified 03/26/17 17:44 Antibiotics) Medications: Current Medications Acetaminophen (Tylenol) 650 mg PER TUBE Q4H PRN PRN Reason: Headache/Fever or Pain Last Admin: 03/26/17 21:59 Dose: 650 mg Al Hydroxide/Mg Hydroxide (Maalox) 30 ml PER TUBE Q6H PRN PRN Reason: Heartburn or Indigestion Albuterol/Ipratropium (Duoneb) 3 ml NEB [id number] [facility] Last Admin: 03/27/17 07:06 Dose: 3 ml Artificial Tears (Tears Renewed 15ml Bottle) 0 drop EA EYE PRN PRN PRN Reason: Dry Eyes Aspirin (Aspirin) 325 mg PER TUBE DAILY [facility] Last Admin: 03/27/17 08:38 Dose: 325 mg Atorvastatin Calcium (Lipitor) 20 mg PER TUBE HS [facility] Last Admin: 03/26/17 20:19 Dose: 20 mg Bisacodyl (Dulcolax) 10 mg MO Q24H PRN PRN Reason: Constipation Cyanocobalamin (Vitamin B-12) 1,000 mcg PER TUBE DAILY [facility] Last Admin: 03/27/17 08:38 Dose: 1,000 mcg Famotidine (Pepcid) 20 mg SLOW IVP BID [facility] Ferrous Sulfate (Ferrous Sulfate) 300 mg PER TUBE DAILY [facility] Last Admin: 03/27/17 08:38 Dose: 300 mg Folic Acid (Folvite) 1 mg PER TUBE DAILY [facility] Last Admin: 03/27/17 08:38 Dose: 1 mg Guaifenesin (Robitussin Sf) 200 mg PER TUBE Q4H PRN PRN Reason: Cough Heparin Sodium (Porcine) (Heparin) 5,000 units SC BID [facility] Last Admin: 03/27/17 08:38 Dose: 5,000 units Hydralazine HCl (Apresoline) 10 mg SLOW IVP Q4H PRN PRN Reason: Systolic BP > 180 Piperacillin Sod/Tazobactam (Sod 2.25 gm/ Sodium Chloride) 100 mls @ 200 mls/ hr IVPB Q6HR [facility] Last Admin: 03/27/17 05:10 Dose: 100 mls Fentanyl (Fentanyl Cadd) 250 mls @ 0 mls/hr IVPB INF LINDA; Titrate PRN Reason: Protocol Stop: 04/25/17 18:22 Fentanyl Citrate (Fentanyl Bolus) 250 mls @ 0 mls/hr IVPB PRN PRN; As Directed PRN Reason: VENTILATION SEDATION PROTOCOL Stop: 04/25/17 18:22 Dextrose/Water (D5w) 1,000 mls @ 100 mls/hr IV .Q10H [facility] Last Admin: 03/27/17 09:30 Dose: 1,000 mls Labetalol HCl (Normodyne) 20 mg SLOW IVP Q4H PRN PRN Reason: Systolic BP > 180 Loperamide HCl (Imodium) 2 mg PER TUBE PRN PRN PRN Reason: Diarrhea/Loose Stools Lorazepam (Ativan) 2 mg SLOW IVP Q2H PRN PRN Reason: Anxiety to achieve Pino 2-3 Stop: 04/25/17 18:22 Magnesium Hydroxide (Milk Of Magnesium) 30 ml PER TUBE DAILYPRN PRN PRN Reason: Constipation Methylprednisolone Sodium Succinate (Solu-Medrol) 20 mg IVP Q6HR [facility] Last Admin: 03/27/17 05:09 Dose: 20 mg Mineral Oil/White Petrolatum (Eucerin Cream) 0 gm TOP BIDPRN PRN PRN Reason: Dry Skin Miscellaneous Medication (Pharmacy To Dose) 1 each IVPB PRN PRN PRN Reason: Pharmacy to dose Morphine Sulfate (Duramorph) 2 mg IVP Q2H PRN PRN Reason: TO ACHIEVE CHARLI SCORE 2-3 Stop: 04/25/17 18:28 Ondansetron HCl (Zofran) 4 mg IVP Q6H PRN PRN Reason: Nausea/Vomiting Propofol (Diprivan) 1,000 mg IV INF PRN; Protocol PRN Reason: TO ACHIEVE PINO SCORE 2-3 Stop: 04/25/17 18:22 Last Admin: 03/27/17 09:29 Dose: 1,000 mg Saccharomyces Boulardii (Florastor) 250 mg PO DAILY [facility] Last Admin: 03/27/17 08:38 Dose: 250 mg Sodium Chloride ([place] Nasal [place] 0.65%) 0 ml EA NARE QIDPRN PRN PRN Reason: Nasal Congestion
--- NOTE | 2017-03-27 11:12 | RAD ---
PORTABLE AP CHEST: Date: 03/27/17 HISTORY: Daily follow-up. Patient on ventilator. COMPARISON: 03/26/17. FINDINGS: Endotracheal tube and nasogastric tube remain in place and unchanged in position. There has been incr ease in interstitial and parenchymal opacities at the right lung base with persistent interstitial an d patchy densities in the region of the lingula. Findings may be related to bilateral pneumonia with worsening pneumonia at the right lung base. There is a linear density overlying the right lateral low er chest, which is thought to most likely represent a skin fold as there are parenchymal changes seen lateral to this density. This is not thought to represent a pneumothorax. Cardiac silhouette and pul monary vasculature are within normal limits. No other interval change. IMPRESSION: 1. Worsening interstitial and alveolar opacities at the right lung base suggesting worsening pneumon ia. 2. Stable interstitial and parenchymal densities in the region of the lingula and left lung base lik jocy related to peristent pneumonia. 3. Continued follow-up to resolution is recommended. POS: AARON
[2017-03-27] MEDS ORDERED: Vancomycin HCl 500 MG in Sodium Chloride 0.9% 100 ML IVPB SCH (15:00)
--- NOTE | 2017-03-27 17:47 | PRG ---
DATE OF SERVICE: 03/27/2017 SUBJECTIVE: Mr. Pires is awake. OBJECTIVE: VITAL SIGNS: He is afebrile, respiratory rate was in the 30s on bilevel 10/5, oximetry is in the high 90s. He was placed back on a little low dose sedation, and his respiratory rate came down to the low 20s. LUNGS: Remarkable for coarse equal breath sounds. HEART: Regular rhythm. ABDOMEN: Soft. LABORATORY DATA: White count 17.3, hemoglobin 7.0. Packed red cells have been ordered, 2 units. Sodium 137, potassium 4.5, chloride 112, bicarbonate 15, BUN 34, creatinine 1.6, pH 7.42, CO2 of 26, pO2 of 93. Chest radiograph shows bilateral infiltrates, left greater than right. IMPRESSION: 1. Pneumonia? aspiration mediated. 2. Metabolic acidosis in part secondary to hyperchloremia in part secondary to chronic kidney disease. 3. Advanced age. 4. Anemia with an increased mean corpuscular volume. He had 18% from bands on his peripheral smear yesterday 28 today. I do not feel it would be tavares to extubate him at this point in time. I would continue with [place] for now. Critical care time 30 min. KARLI
[2017-03-27] MEDS: Atorvastatin Calcium 20 MG TAB PER TUBE SCH (20:19)
[2017-03-27] MEDS: Famotidine/PF 20 mg/2ml Vial SLOW IVP SCH (20:20)
[2017-03-28] MEDS: Piperacillin/Tazobactam 2.25 GM in Sodium Chloride 0.9% 100 ML IVPB SCH ×5 (00:01→23:07)
[2017-03-28 04:33] LABS: Anion Gap 12 mmol/L (10-20); BUN (Urea Nitrogen) 28 mg/dL (8.4-25.7); Calc. Creatinine Clearance 32 mL/min (70-130); Calcium 7.6 mg/dL (7.8-10.44); Carbon Dioxide 17 mmol/L (23-31); Chloride 109 mmol/L (98-107); Estimated GFR-MDRD 60
[2017-03-28] MEDS: Dextrose 5% in Water 1,000 ML IV SCH ×3 (05:16→23:07)
[2017-03-28 05:18] LABS: Anisocytosis SLIGHT = 6-15 cells (100X) (0-5/hpf); Band 13 % (5-11); Hematocrit 26.7 % (42.0-52.0); Mean Platelet Volume 11.5 fL (7.4-10.4); Neutrophil 76 % (42-75); Nucleated RBC 2 % (0); Red Blood Cell (RBC) Count 2.82 mill/uL (4.70-6.10); Tear Drops SLIGHT = 2-5 cells (100X) (0-1/hpf); White Blood Cell (WBC) Count 12.5 thou/uL (4.8-10.8)
[2017-03-28 08:21] LABS: Oxyhemoglobin 96.9 % (94.0-97.0); Sodium 136 mmol/L (135-148)
[2017-03-28 08:28] LABS: Mode PSV; Modified Allen's Test NOT DONE; Pressure Support 10 cmH2O; Vent YES
--- NOTE | 2017-03-28 08:31 | PRG ---
DATE OF SERVICE: 03/28/2017 Thirty-five minutes critical care time. The patient remains intubated on mechanical ventilation. There have been no acute changes overnight. He is currently off all sedation. PHYSICAL EXAMINATION: VITAL SIGNS: On exam his temperature 99.2, pulse 104, blood pressure 149/87, 24 hour intake is 3374, output 1390. HEENT: Unremarkable. NECK: No JVD. LUNGS: Clear anteriorly. CARDIOVASCULAR: S1, S2, slightly tachycardic without murmur. ABDOMEN: Soft, nontender, nondistended. EXTREMITIES: No clubbing, cyanosis, or edema. LABORATORY DATA: Sodium 134, potassium 3.6, chloride 109, CO2 17, BUN 28, creatinine 1.4, glucose 14 5. ABG results pending. White blood cell count 12.5, hematocrit 26.7, platelet count 105. X-ray sh ows hyperinflation. There is a right middle lobe infiltrate. ASSESSMENT: 1. Right middle lobe pneumonia. 2. Acute respiratory failure requiring mechanical ventilation. 3. Advanced age. PLAN: I think he could probably be extubated. I will go ahead and have a blood gas checked to make sure that is looking okay. Further disposition to follow.
--- NOTE | 2017-03-28 10:09 | RAD ---
SEMI UPRIGHT PORTABLE CHEST ONE VIEW: History: 89-year-old male with history of respiratory insufficiency. Follow up. Comparison: 03-27-17 FINDINGS: NG tube and endotracheal tubes remain in place. Stable to slightly improving patchy bilateral interst itial and alveolar opacity changes in the lower lung zones. No new process. IMPRESSION: Stable to minimally improving bilateral mid and lower lung zone interstitial and alveolar opacities. No significant new process. Continued short term follow up for clearing. POS: AARON
[2017-03-28] MEDS: Folic Acid 1 MG TAB PER TUBE SCH (10:21)
[2017-03-28] MEDS: Saccharomyces boulardii 250 MG CAP PO SCH (10:21)
[2017-03-28] MEDS: Aspirin 325 MG TAB PER TUBE SCH (10:21)
[2017-03-28] MEDS: Cyanocobalamin (Vitamin B-12) 1,000 MCG TAB PER TUBE SCH (10:21)
[2017-03-28] MEDS: Famotidine/PF 20 mg/2ml Vial SLOW IVP SCH ×2 (10:22→20:32)
[2017-03-28] MEDS: Heparin 5,000 UNITS/ML VIAL SC SCH ×2 (10:23→20:33)
--- NOTE | 2017-03-28 12:56 | PDOC.PN ---
- Subjective Encounter Start Date: 03/28/17 Encounter Start Time: 10:10 Patient seen and examined. pt is extubated. No overnight events - Objective Resuscitation Status: Resuscitation Status FULL:Full Resuscitation MAR Reviewed: Yes Vital Signs & Weight: Vital Signs (12 hours) Temp Pulse Resp BP Pulse Ox 03/28/17 12:00 98.6 F 93 L 03/28/17 08:25 108 H 24 H 95 03/28/17 08:13 99 03/28/17 08:11 103 H 149/87 H 03/28/17 08:10 98 20 99 03/28/17 08:00 99.2 F 24 H 03/28/17 07:55 99.2 F 107 H 24 H 99 03/28/17 06:00 24 H 03/28/17 04:00 24 H 03/28/17 03:00 99 F 03/28/17 02:50 94 113/52 L 03/28/17 02:00 22 H Weight Admit Weight 136 lb Weight 136 lb 10.986 oz Most Recent Monitor Data Heart Rate from ECG 92 NIBP 149/78 NIBP BP-Mean 109 Respiration from ECG 23 SpO2 92 I&O: 03/27/17 03/28/17 03/29/17 06:59 06:59 06:59 Intake Total 2394 3374 Output Total 453 1390 565 Balance 1941 1983 - Result Diagrams: 03/28/17 03:54 03/28/17 03:54 Radiology Reviewed by me: Yes (chest xray) EKG Reviewed by me: Yes (nsr) Phys Exam - Physical Examination Constitutional: NAD HEENT: PERRLA, moist MMs, sclera anicteric Neck: no JVD, supple Respiratory: no wheezing, no rales, no rhonchi Cardiovascular: RRR, no significant murmur, no rub Gastrointestinal: soft, non-tender, no distention, positive bowel sounds Musculoskeletal: no edema, pulses present left side weak Lymphatic: no nodes Psychiatric: normal affect Skin: no rash, normal turgor Dx/Plan (1) Acute kidney failure Status: Acute (2) Acute respiratory failure with hypoxia Code(s): J96.01 - ACUTE RESPIRATORY FAILURE WITH HYPOXIA Status: Acute (3) Aspiration pneumonia Code(s): J69.0 - PNEUMONITIS DUE TO INHALATION OF FOOD AND VOMIT Status: Acute (4) Demand ischemia of myocardium Code(s): I24.8 - OTHER FORMS OF ACUTE ISCHEMIC HEART DISEASE Status: Acute (5) Encephalopathy acute Code(s): G93.40 - ENCEPHALOPATHY, UNSPECIFIED Status: Acute (6) Hyperkalemia Code(s): E87.5 - HYPERKALEMIA Status: Resolved (7) Metabolic acidosis Code(s): E87.2 - ACIDOSIS Status: Acute (8) Sepsis with acute organ dysfunction Code(s): A41.9 - SEPSIS, UNSPECIFIED ORGANISM; R65.20 - SEVERE SEPSIS WITHOUT SEPTIC SHOCK Status: Acute (9) Anemia, macrocytic Code(s): D53.9 - NUTRITIONAL ANEMIA, UNSPECIFIED Status: Chronic (10) H/O: CVA (cerebrovascular accident) Code(s): Z86.73 - PRSNL HX OF TIA (TIA), AND CEREB INFRC W/O RESID DEFICITS Status: Chronic (11) History of throat cancer Code(s): Z85.819 - PRSNL HX OF MALIG NEOPLM OF UNSP SITE LIP,ORAL CAV,& PHARYNX Status: Chronic (12) Oropharyngeal dysphagia Code(s): R13.12 - DYSPHAGIA, OROPHARYNGEAL PHASE Status: Chronic (13) Physical deconditioning Code(s): R53.81 - OTHER MALAISE Status: Chronic (14) Protein-calorie malnutrition, moderate Code(s): E44.0 - MODERATE PROTEIN-CALORIE MALNUTRITION Status: Chronic - Plan cont current plan of care, plan discussed w/ family, khan catheter, continue antibiotics, social services counselor, speech therapy * pt is extubated today, will monitor * now will consult speech therapy * will evaluate for PEG if needed * continue vancomycin and zosyn * medication reviewed as below * symptomatic treatment. * renal function improving Review of Systems - Review of Systems Other: not reliable due to level of alertness - Medications/Allergies Allergies/Adverse Reactions: Allergies Allergy/AdvReac Type Severity Reaction Status Date / Time Sulfa (Sulfonamide Allergy Intermediate Verified 03/26/17 17:44 Antibiotics) Medications: Current Medications Acetaminophen (Tylenol) 650 mg PER TUBE Q4H PRN PRN Reason: Headache/Fever or Pain Last Admin: 03/26/17 21:59 Dose: 650 mg Al Hydroxide/Mg Hydroxide (Maalox) 30 ml PER TUBE Q6H PRN PRN Reason: Heartburn or Indigestion Albuterol/Ipratropium (Duoneb) 3 ml NEB [id number] [facility] Last Admin: 03/28/17 08:10 Dose: 3 ml Artificial Tears (Tears Renewed 15ml Bottle) 0 drop EA EYE PRN PRN PRN Reason: Dry Eyes Aspirin (Aspirin) 325 mg PER TUBE DAILY [facility] Last Admin: 03/28/17 10:21 Dose: Not Given Atorvastatin Calcium (Lipitor) 20 mg PER TUBE HS [facility] Last Admin: 03/27/17 20:19 Dose: 20 mg Bisacodyl (Dulcolax) 10 mg AR Q24H PRN PRN Reason: Constipation Cyanocobalamin (Vitamin B-12) 1,000 mcg PER TUBE DAILY [facility] Last Admin: 03/28/17 10:21 Dose: Not Given Famotidine (Pepcid) 20 mg SLOW IVP BID [facility] Last Admin: 03/28/17 10:22 Dose: 20 mg Ferrous Sulfate (Ferrous Sulfate) 300 mg PER TUBE DAILY [facility] Last Admin: 03/28/17 10:21 Dose: Not Given Folic Acid (Folvite) 1 mg PER TUBE DAILY [facility] Last Admin: 03/28/17 10:21 Dose: Not Given Guaifenesin (Robitussin Sf) 200 mg PER TUBE Q4H PRN PRN Reason: Cough Heparin Sodium (Porcine) (Heparin) 5,000 units SC BID [facility] Last Admin: 03/28/17 10:23 Dose: 5,000 units Hydralazine HCl (Apresoline) 10 mg SLOW IVP Q4H PRN PRN Reason: Systolic BP > 180 Piperacillin Sod/Tazobactam (Sod 2.25 gm/ Sodium Chloride) 100 mls @ 200 mls/ hr IVPB Q6HR [facility] Last Admin: 03/28/17 12:15 Dose: 100 mls Fentanyl (Fentanyl Cadd) 250 mls @ 0 mls/hr IVPB INF LINDA; Titrate PRN Reason: Protocol Stop: 04/25/17 18:22 Fentanyl Citrate (Fentanyl Bolus) 250 mls @ 0 mls/hr IVPB PRN PRN; As Directed PRN Reason: VENTILATION SEDATION PROTOCOL Stop: 04/25/17 18:22 Dextrose/Water (D5w) 1,000 mls @ 100 mls/hr IV .Q10H [facility] Last Admin: 03/28/17 05:16 Dose: 1,000 mls Labetalol HCl (Normodyne) 20 mg SLOW IVP Q4H PRN PRN Reason: Systolic BP > 180 Loperamide HCl (Imodium) 2 mg PER TUBE PRN PRN PRN Reason: Diarrhea/Loose Stools Lorazepam (Ativan) 2 mg SLOW IVP Q2H PRN PRN Reason: Anxiety to achieve Pino 2-3 Stop: 04/25/17 18:22 Magnesium Hydroxide (Milk Of Magnesium) 30 ml PER TUBE DAILYPRN PRN PRN Reason: Constipation Methylprednisolone Sodium Succinate (Solu-Medrol) 20 mg IVP Q6HR [facility] Last Admin: 03/28/17 12:15 Dose: 20 mg Mineral Oil/White Petrolatum (Eucerin Cream) 0 gm TOP BIDPRN PRN PRN Reason: Dry Skin Morphine Sulfate (Duramorph) 2 mg IVP Q2H PRN PRN Reason: TO ACHIEVE CHARLI SCORE 2-3 Stop: 04/25/17 18:28 Ondansetron HCl (Zofran) 4 mg IVP Q6H PRN PRN Reason: Nausea/Vomiting Propofol (Diprivan) 1,000 mg IV INF PRN; Protocol PRN Reason: TO ACHIEVE PINO SCORE 2-3 Stop: 04/25/17 18:22 Last Admin: 03/27/17 09:29 Dose: 1,000 mg Saccharomyces Boulardii (Florastor) 250 mg PO DAILY [facility] Last Admin: 03/28/17 10:21 Dose: Not Given Sodium Chloride ([place] Nasal [place] 0.65%) 0 ml EA NARE QIDPRN PRN PRN Reason: Nasal Congestion
--- NOTE | 2017-03-28 13:07 | PRG ---
DATE OF SERVICE: 03/28/2017 Mr. Pires is extubated. He has no current complaints. PHYSICAL EXAMINATION: VITAL SIGNS: Blood pressure 149/78, pulse 92, respirations 20. LUNGS: Clear to auscultation. CARDIAC: Regular rate and rhythm. ABDOMEN: Soft, nontender, nondistended. EXTREMITIES: No edema. PERTINENT LABORATORY DATA: Hemoglobin 8.9, sodium 134, creatinine 1.36. IMPRESSION: 1. Elevated troponin. 2. Renal cell cancer with metastatic disease to his lungs. 3. Malnutrition. 4. Respiratory failure. RECOMMENDATIONS: Continue cardiovascular conservative treatment. Hemoglobin appears stable after 3 units. At this point, I have no further recommendations. Reconsult if needed.
[2017-03-28] MEDS: Atorvastatin Calcium 20 MG TAB PER TUBE SCH (20:33)
[2017-03-29 05:06] LABS: Anion Gap 12 mmol/L (10-20); BUN (Urea Nitrogen) 29 mg/dL (8.4-25.7); Calc. Creatinine Clearance 35 mL/min (70-130); Calcium 7.8 mg/dL (7.8-10.44); Carbon Dioxide 18 mmol/L (23-31); Chloride 106 mmol/L (98-107); Estimated GFR-MDRD 66
[2017-03-29 05:08] LABS: Anisocytosis MODERATE=16-30 cells (100X) (0-5/hpf); Band 4 % (5-11); Hematocrit 29.2 % (42.0-52.0); Mean Platelet Volume 11.8 fL (7.4-10.4); Neutrophil 81 % (42-75); Red Blood Cell (RBC) Count 3.04 mill/uL (4.70-6.10)
[2017-03-29] MEDS: Piperacillin/Tazobactam 2.25 GM in Sodium Chloride 0.9% 100 ML IVPB SCH (05:50)
[2017-03-29] MEDS ORDERED: traMADol HCl 50 MG TAB PO PRN (06:59)
[2017-03-29] MEDS ORDERED: Epoetin (ESRD) 10,000 UNITS/ML VIAL SC SCH (07:00)
[2017-03-29] MEDS ORDERED: Potassium Chloride 20 MEQ TAB PO SCH (07:00)
[2017-03-29] MEDS ORDERED: Mag-Al 1200 mg/1200 mg/30 ML UDCUP PO PRN (07:01)
[2017-03-29] MEDS ORDERED: Diabetic Tussin 200 MG/10 ML UDCUP PO PRN (07:01)
[2017-03-29] MEDS ORDERED: Milk Of Magnesia 30 ML UDCUP PO PRN (07:01)
[2017-03-29] MEDS ORDERED: Acetaminophen 325 MG TAB PO PRN (07:01)
[2017-03-29] MEDS ORDERED: Loperamide HCl 2 MG CAP PO PRN (07:01)
[2017-03-29 07:55] LABS: Magnesium 1.7 mg/dL (1.6-2.6); Phosphorus 2.3 mg/dL (2.3-4.7)
[2017-03-29] MEDS ORDERED: DOCUSATE SODIUM 200 MG PO SCH (09:00)
[2017-03-29] MEDS ORDERED: Non-Formulary Item 1 EACH (Multivitamin [Multivitamins] 1 CAP) PO SCH (09:00)
[2017-03-29] MEDS ORDERED: PYRIDOXINE HCL 50 MG PO SCH (09:00)
--- NOTE | 2017-03-29 09:14 | RAD ---
PORTABLE AP CHEST XRAY: DATE: 03/29/17. HISTORY: Daily followup evaluation. Removal of endotracheal tube. COMPARISON: 03/28/17. FINDINGS: The endotracheal tube and nasogastric tubes have been removed. There are persistent increased inters titial and patchy alveolar opacities at each lung base overall similar to the prior exam. There is a question of a small left pleural effusion with slightly greater patchy density in the retrocardiac r egion on the current exam. Curvilinear metallic density again overlies the left mid lung zone. No o ther interval change. IMPRESSION: 1. Interval removal of endotracheal tube and nasogastric tubes, but the interstitial and alveolar op acities at each lung base are similar to the prior study and likely related to infectious process. A typical infectious process is a possibility. 2. Probable small left pleural effusion. 3. Stable curvilinear metallic foreign body overlying the left mid lung zone. POS: AARON
[2017-03-29] MEDS ORDERED: Potassium Chloride 40 MEQ in Premix Bag 1 BAG IVPB SCH (09:15)
[2017-03-29] MEDS: Amlodipine 5 MG TAB PO SCH (09:31)
[2017-03-29] MEDS: Ferrous Sulfate 325 MG TAB PO SCH (09:31)
[2017-03-29] MEDS: Aspirin 325 MG TAB PO SCH (09:31)
[2017-03-29] MEDS: Cyanocobalamin (Vitamin B-12) 1,000 MCG TAB PO SCH (09:32)
[2017-03-29] MEDS: Folic Acid 1 MG TAB PO SCH (09:32)
[2017-03-29] MEDS: Gabapentin 100 MG CAP PO SCH ×3 (09:32→20:25)
[2017-03-29] MEDS: Docusate 100 MG CAP PO SCH ×2 (09:32→20:25)
[2017-03-29] MEDS: pyridOXINE 50 MG (B6) TAB PO SCH (09:33)
[2017-03-29] MEDS: Megestrol Acetate 40 MG TAB PO SCH (09:33)
[2017-03-29] MEDS: Metoprolol Tartrate 25 MG TAB PO SCH ×2 (09:33→20:25)
[2017-03-29] MEDS: Potassium Chloride 20 MEQ TAB PO SCH (09:33)
[2017-03-29] MEDS: Multivit, Therapeutic 1 TAB PO SCH (09:33)
[2017-03-29] MEDS: Saccharomyces boulardii 250 MG CAP PO SCH (09:33)
[2017-03-29] MEDS: Heparin 5,000 UNITS/ML VIAL SC SCH ×2 (09:41→20:24)
[2017-03-29] MEDS ORDERED: Potassium Chloride 40 MEQ in Sodium Chloride 0.9% 500 ML IVPB SCH (10:00)
--- NOTE | 2017-03-29 10:51 | PRG ---
DATE OF SERVICE: 03/29/2017 SUBJECTIVE: Patient has done reasonably well since he was extubated yesterday. He has difficulty co mmunicating. His words are somewhat dysarthric. PHYSICAL EXAMINATION: VITAL SIGNS: Temperature is 98.0, pulse 96, blood pressure 154/76. 24-hour intake 2551, output 2640 . HEENT: Remarkable for bitemporal wasting. NECK: No JVD. LUNGS: Fairly clear anteriorly. CARDIOVASCULAR: S1, S2 regular. ABDOMEN: Soft. EXTREMITIES: No edema. IMAGING: Chest x-ray shows fairly clear lung chun. LABORATORY DATA: White blood cell count 8, hematocrit 29.2, platelet count 104. Sodium 133, potassi um 3.4, chloride 106, CO2 18, BUN 29, creatinine 1.2 and glucose 144. ASSESSMENT: 1. Status post respiratory failure requiring mechanical ventilation. 2. History of renal cell carcinoma with metastasis to the lungs by history. 3. Status post acute respiratory failure requiring mechanical ventilation. 4. Swallowing dysfunction. PLAN: He can be transferred to the floor. He will need further evaluation by Speech Team to see whe ther or not he can swallow. For the time being, he is continuing antibiotics. His prognosis is very guarded.
[2017-03-29] MEDS: Piperacillin/Tazobactam 3.375 GM, Admixture Fee 1 EACH in Sodium Chloride 0.9% 100 ML IVPB SCH ×2 (11:20→17:46)
--- NOTE | 2017-03-29 12:36 | PDOC.PN ---
- Subjective Encounter Start Date: 03/29/17 Encounter Start Time: 11:00 pt is not able to take well by mouth, pt wants peg tube and family agreed with peg tube placement - Objective Resuscitation Status: Resuscitation Status FULL:Full Resuscitation MAR Reviewed: Yes Vital Signs & Weight: Vital Signs (12 hours) Temp Pulse Resp BP Pulse Ox 03/29/17 10:13 98.1 F 94 18 145/73 H 98 03/29/17 09:31 93 03/29/17 08:00 98.0 F 93 25 H 97 03/29/17 06:54 93 L 03/29/17 06:51 93 20 93 L 03/29/17 03:00 98.8 F 03/29/17 00:36 86 22 H 95 Weight Admit Weight 136 lb Weight 136 lb 7.458 oz Most Recent Monitor Data Heart Rate from ECG 90 NIBP 144/71 NIBP BP-Mean 84 Respiration from ECG 22 SpO2 96 I&O: 03/28/17 03/29/17 03/30/17 06:59 06:59 06:59 Intake Total 3374 2551 Output Total 1390 2640 710 Balance 1983 - Result Diagrams: 03/29/17 03:41 03/29/17 03:41 Radiology Reviewed by me: Yes (chest xray) EKG Reviewed by me: Yes (nsr) Phys Exam - Physical Examination Constitutional: NAD cachectic HEENT: PERRLA, sclera anicteric dry mm Neck: no JVD, supple Respiratory: no wheezing, no rales, no rhonchi coarse sound Cardiovascular: RRR, no significant murmur, no rub Gastrointestinal: soft, non-tender, no distention, positive bowel sounds Musculoskeletal: no edema, pulses present residual weakness Lymphatic: no nodes Psychiatric: normal affect Skin: no rash, normal turgor Dx/Plan (1) Acute kidney failure Status: Resolved (2) Acute respiratory failure with hypoxia Code(s): J96.01 - ACUTE RESPIRATORY FAILURE WITH HYPOXIA Status: Acute (3) Aspiration pneumonia Code(s): J69.0 - PNEUMONITIS DUE TO INHALATION OF FOOD AND VOMIT Status: Acute (4) Demand ischemia of myocardium Code(s): I24.8 - OTHER FORMS OF ACUTE ISCHEMIC HEART DISEASE Status: Acute (5) Encephalopathy acute Code(s): G93.40 - ENCEPHALOPATHY, UNSPECIFIED Status: Acute (6) Hyperkalemia Code(s): E87.5 - HYPERKALEMIA Status: Resolved (7) Metabolic acidosis Code(s): E87.2 - ACIDOSIS Status: Acute (8) Sepsis with acute organ dysfunction Code(s): A41.9 - SEPSIS, UNSPECIFIED ORGANISM; R65.20 - SEVERE SEPSIS WITHOUT SEPTIC SHOCK Status: Acute (9) Anemia, macrocytic Code(s): D53.9 - NUTRITIONAL ANEMIA, UNSPECIFIED Status: Chronic (10) H/O: CVA (cerebrovascular accident) Code(s): Z86.73 - PRSNL HX OF TIA (TIA), AND CEREB INFRC W/O RESID DEFICITS Status: Chronic (11) History of throat cancer Code(s): Z85.819 - PRSNL HX OF MALIG NEOPLM OF UNSP SITE LIP,ORAL CAV,& PHARYNX Status: Chronic (12) Oropharyngeal dysphagia Code(s): R13.12 - DYSPHAGIA, OROPHARYNGEAL PHASE Status: Chronic (13) Physical deconditioning Code(s): R53.81 - OTHER MALAISE Status: Chronic (14) Protein-calorie malnutrition, moderate Code(s): E44.0 - MODERATE PROTEIN-CALORIE MALNUTRITION Status: Chronic - Plan cont current plan of care, plan discussed w/ family, khan catheter, continue antibiotics, PT/OT, social welfare administrator * spoke with daughter and confirmed with them that pt does not want CPR but intubation and chemical code ok * they agreed to pursue for PEG placement * will consult GI * replace IV poatassium * may need placement * medication reviewed as below * symptomatic treatment * continue IV antibiotics * repeat labs tomorrow * transfer to medical. Review of Systems - Review of Systems Other: not reliable due to confusion and dementia - Medications/Allergies Allergies/Adverse Reactions: Allergies Allergy/AdvReac Type Severity Reaction Status Date / Time Sulfa (Sulfonamide Allergy Intermediate Verified 03/26/17 17:44 Antibiotics) Medications: Current Medications Acetaminophen (Tylenol) 650 mg PO Q4H PRN PRN Reason: Headache/Fever or Pain Al Hydroxide/Mg Hydroxide (Maalox) 30 ml PO Q6H PRN PRN Reason: Heartburn or Indigestion Albuterol/Ipratropium (Duoneb) 3 ml NEB [id number] LINDA Last Admin: 03/29/17 06:51 Dose: 3 ml Amlodipine Besylate (Norvasc) 5 mg PO DAILY [facility] Last Admin: 03/29/17 09:31 Dose: Not Given Artificial Tears (Tears Renewed 15ml Bottle) 0 drop EA EYE PRN PRN PRN Reason: Dry Eyes Aspirin (Aspirin) 325 mg PO DAILY [facility] Last Admin: 03/29/17 09:31 Dose: Not Given Atorvastatin Calcium (Lipitor) 20 mg PO HS [facility] Bisacodyl (Dulcolax) 10 mg [place] Q24H PRN PRN Reason: Constipation Cyanocobalamin (Vitamin B-12) 1,000 mcg PO DAILY [facility] Last Admin: 03/29/17 09:32 Dose: Not Given Docusate Sodium (Colace) 200 mg PO BID [facility] Last Admin: 03/29/17 09:32 Dose: Not Given Epoetin Dominick (Procrit) 10,000 units SC ROUTINE [facility] Ferrous Sulfate (Feosol) 325 mg PO QAM-WM [facility] Last Admin: 03/29/17 09:31 Dose: Not Given Folic Acid (Folvite) 1 mg PO DAILY [facility] Last Admin: 03/29/17 09:32 Dose: Not Given Gabapentin (Neurontin) 200 mg PO TID [facility] Last Admin: 03/29/17 09:32 Dose: Not Given Guaifenesin (Robitussin Sf) 200 mg PO Q4H PRN PRN Reason: Cough Heparin Sodium (Porcine) (Heparin) 5,000 units SC BID [facility] Last Admin: 03/29/17 09:41 Dose: 5,000 units Hydralazine HCl (Apresoline) 10 mg SLOW IVP Q4H PRN PRN Reason: Systolic BP > 180 Dextrose/Water (D5w) 1,000 mls @ 100 mls/hr IV .Q10H [facility] Last Admin: 03/28/17 23:07 Dose: 1,000 mls Piperacillin Sod/Tazobactam Sod 3.375 gm/ Miscellaneous Medication 1 each/ Sodium Chloride 100 mls @ 200 mls/hr IVPB Q6HR [facility] Last Admin: 03/29/17 11:20 Dose: 100 mls Potassium Chloride 40 meq/ (Sodium Chloride) 520 mls @ 130 mls/hr IVPB NOW [facility] Stop: 03/29/17 13:59 Labetalol HCl (Normodyne) 20 mg SLOW IVP Q4H PRN PRN Reason: Systolic BP > 180 Loperamide HCl (Imodium) 2 mg PO PRN PRN PRN Reason: Diarrhea/Loose Stools Magnesium Hydroxide (Milk Of Magnesium) 30 ml PO DAILYPRN PRN PRN Reason: Constipation Megestrol Acetate (Megace) 40 mg PO DAILY [facility] Last Admin: 03/29/17 09:33 Dose: Not Given Metoprolol Tartrate (Lopressor) 25 mg PO BID [facility] Last Admin: 03/29/17 09:33 Dose: Not Given Mineral Oil/White Petrolatum (Eucerin Cream) 0 gm TOP BIDPRN PRN PRN Reason: Dry Skin Multivitamins (Theragran) 1 tab PO DAILY [facility] Last Admin: 03/29/17 09:33 Dose: Not Given Ondansetron HCl (Zofran) 4 mg IVP Q6H PRN PRN Reason: Nausea/Vomiting Potassium Chloride (K-Dur) 20 meq PO DAILY [facility] Last Admin: 03/29/17 09:33 Dose: Not Given Pyridoxine HCl (Vitamin B 6) 50 mg PO DAILY [facility] Last Admin: 03/29/17 09:33 Dose: Not Given Quetiapine Fumarate (Seroquel) 25 mg PO [facility] Saccharomyces Boulardii (Florastor) 250 mg PO DAILY [facility] Last Admin: 03/29/17 09:33 Dose: Not Given Sodium Chloride ([place] Nasal [place] 0.65%) 0 ml EA NARE QIDPRN PRN PRN Reason: Nasal Congestion Sodium Chloride (Flush - Normal Saline) 10 ml IVF Q12HR [facility] Last Admin: 03/29/17 09:41 Dose: 10 ml Sodium Chloride (Flush - Normal Saline) 10 ml IVF PRN PRN PRN Reason: Saline Flush Tramadol HCl (Ultram) 50 mg PO QIDPRN PRN PRN Reason: Pain
[2017-03-29] MEDS: Dextrose 5% in Water 1,000 ML IV SCH ×2 (15:35→22:46)
[2017-03-29] MEDS: Epoetin (ESRD) 10,000 UNITS/ML VIAL SC SCH (15:49)
--- NOTE | 2017-03-29 16:28 | CON ---
DATE OF CONSULTATION: 03/29/2017 GI INPATIENT CONSULTATION NOTE: REQUESTING PHYSICIAN: Dr. Yang. REASON FOR CONSULTATION: PEG placement. HISTORY OF PRESENT ILLNESS: Neha Pires is an 89-year-old -[place] man with significant med ical history of myelodysplastic syndrome and throat cancer status post radiation. Earlier this month , he unfortunately had a CVA and has had some issues with oropharyngeal dysphagia and dysarthria and unilateral weakness since then. He was admitted to the hospital 3 days ago with sepsis and respirato ry failure and altered mental status. He was found to have a multifocal pneumonia which was thought likely related to aspiration. With IV antibiotics, he has improved. He was intubated for a couple d ays, but was finally able to be extubated and was transferred to the floor today. He was evaluated b y Speech Pathology and was found to have significant oropharyngeal dysphagia. His p.o. intake has be en poor over the past several weeks and we are consulted for possible PEG tube placement. The family is all wanting to proceed with this. REVIEW OF SYSTEMS: Full review of systems including constitutional, head, eyes, ears, nose, throat, GI, , cardiovascular, respiratory, musculoskeletal, and neurologic systems is negative except as no jonathan in the HPI. PAST MEDICAL HISTORY: Myelodysplastic syndrome, throat cancer status post radiation, CVA earlier thi s month, hypertension, BPH, anxiety. SOCIAL HISTORY: No smoking or alcohol use. FAMILY HISTORY: Noncontributory. ALLERGIES: SULFA DRUGS. MEDICATIONS: DuoNebs, Norvasc, aspirin, vitamin B12, Colace, ferrous sulfate, folic acid, gabapentin , Megace, Lopressor, multivitamin, Zosyn IV, pyridoxine, Seroquel, Florastor, tramadol. PHYSICAL EXAMINATION: VITAL SIGNS: Temperature 98.1, blood pressure 145/75, pulse 94, 98% oxygen saturation on 2 liters na olivia cannula. GENERAL: Chronically ill 89-year-old man, sitting up in bed comfortably, in no distress. SKIN: No jaundice, no rashes were palpable. EYES: No scleral icterus. Extraocular movements intact. ENT: Mucous membranes moist, no oral lesions. LYMPH: No submandibular or supraclavicular lymphadenopathy. NECK: The neck is a bit stiff. He has postradiation changes. HEART: Regular rate and rhythm. LUNGS: Some bibasilar crackles. No wheezing, no respiratory distress. ABDOMEN: Flat, bowel sounds present, soft, nontender to palpation. EXTREMITIES: No peripheral edema. NEUROLOGIC: He has some left-sided weakness and dysarthria. LABORATORY STUDIES: WBC 8.0, hemoglobin 9.4, platelets 104, sodium 133, potassium 3.4, BUN 29, creat inine 1.24, lactic acid 2.5. IMAGING STUDIES: Chest x-ray showed bilateral lung infiltrates which are persistent since admission. ASSESSMENT AND PLAN: 1. Oropharyngeal dysphagia. 2. Aspiration pneumonia. I had a long discussion with the patient and his family regarding PEG tube placement and the benefits and risks of the procedure, everybody is wanting to proceed. I think thi s is certainly reasonable given his joel aspiration and recommendations from the speech pathologist. We will plan for PEG placement tomorrow. Thank you for the consultation. Please call with any questions or concerns.
[2017-03-29] MEDS: Atorvastatin Calcium 20 MG TAB PO SCH (20:23)
[2017-03-29] MEDS ORDERED: Atorvastatin Calcium 20 MG TAB PO SCH (21:00)
[2017-03-30] MEDS: Dextrose 5% in Water 1,000 ML IV SCH ×2 (00:04→20:30)
[2017-03-30] MEDS: Piperacillin/Tazobactam 3.375 GM, Admixture Fee 1 EACH in Sodium Chloride 0.9% 100 ML IVPB SCH ×5 (00:04→21:49)
[2017-03-30] MEDS ORDERED: CEFAZOLIN/Water 2 GM/20 ML SYRINGE SLOW IVP SCH (00:45)
[2017-03-30 06:21] LABS: Band 3 % (5-11); Hematocrit 28.6 % (42.0-52.0); Mean Platelet Volume 11.2 fL (7.4-10.4); Neutrophil 86 % (42-75); Red Blood Cell (RBC) Count 3.02 mill/uL (4.70-6.10); White Blood Cell (WBC) Count 12.4 thou/uL (4.8-10.8)
[2017-03-30 06:23] LABS: Anion Gap 12 mmol/L (10-20); BUN (Urea Nitrogen) 30 mg/dL (8.4-25.7); Calc. Creatinine Clearance 37 mL/min (70-130); Calcium 7.8 mg/dL (7.8-10.44); Carbon Dioxide 18 mmol/L (23-31); Chloride 108 mmol/L (98-107); Estimated GFR-MDRD 69
[2017-03-30] MEDS ORDERED: CEFAZOLIN/Water 2 GM/20 ML SYRINGE ONE (07:58)
[2017-03-30] MEDS ORDERED: Ondansetron HCl/PF 4 MG/2 ML Vial IVP PRN (08:52)
[2017-03-30] MEDS ORDERED: Promethazine HCl 25 MG/ML VIAL SLOW IVP PRN (08:52)
[2017-03-30] MEDS ORDERED: Promethazine HCl 25 MG/ML VIAL IM PRN (08:52)
[2017-03-30] MEDS: Docusate 100 MG CAP PO SCH (12:19)
[2017-03-30] MEDS: Gabapentin 100 MG CAP PO SCH ×3 (12:20→21:47)
[2017-03-30] MEDS: Heparin 5,000 UNITS/ML VIAL SC SCH ×2 (12:20→21:52)
--- NOTE | 2017-03-30 12:33 | PDOC.PN ---
- Subjective Encounter Start Date: 03/30/17 Encounter Start Time: 08:55 Patient seen and examined. No new complaints. No overnight events - Objective Resuscitation Status: Resuscitation Status FULL:Full Resuscitation MAR Reviewed: Yes Vital Signs & Weight: Vital Signs (12 hours) Temp Pulse Resp BP Pulse Ox 03/30/17 10:53 111 H 162/74 H 03/30/17 09:52 97.9 F 100 171/92 H 03/30/17 09:14 99.4 F 99 16 135/77 96 03/30/17 05:21 98.7 F 90 18 164/80 H 94 L 03/30/17 01:02 102 H 16 92 L Weight Admit Weight 136 lb Weight 136 lb 7.458 oz Most Recent Monitor Data Heart Rate from ECG 90 NIBP 144/71 NIBP BP-Mean 84 Respiration from ECG 22 SpO2 96 I&O: 03/29/17 03/30/17 03/31/17 06:59 06:59 06:59 Intake Total 2551 1200 Output Total 2640 3060 Balance -89 -1860 Result Diagrams: 03/30/17 05:07 03/30/17 05:07 Phys Exam - Physical Examination Constitutional: NAD HEENT: PERRLA, moist MMs, sclera anicteric Neck: no JVD, supple Respiratory: no wheezing, no rales, no rhonchi Cardiovascular: RRR, no significant murmur, no rub Gastrointestinal: soft, non-tender, no distention, positive bowel sounds Musculoskeletal: no edema, pulses present residual weakness Lymphatic: no nodes Psychiatric: normal affect Skin: no rash Dx/Plan (1) Acute kidney failure Status: Resolved (2) Acute respiratory failure with hypoxia Code(s): J96.01 - ACUTE RESPIRATORY FAILURE WITH HYPOXIA Status: Acute (3) Aspiration pneumonia Code(s): J69.0 - PNEUMONITIS DUE TO INHALATION OF FOOD AND VOMIT Status: Acute (4) Demand ischemia of myocardium Code(s): I24.8 - OTHER FORMS OF ACUTE ISCHEMIC HEART DISEASE Status: Acute (5) Encephalopathy acute Code(s): G93.40 - ENCEPHALOPATHY, UNSPECIFIED Status: Acute (6) Hyperkalemia Code(s): E87.5 - HYPERKALEMIA Status: Resolved (7) Metabolic acidosis Code(s): E87.2 - ACIDOSIS Status: Acute (8) Sepsis with acute organ dysfunction Code(s): A41.9 - SEPSIS, UNSPECIFIED ORGANISM; R65.20 - SEVERE SEPSIS WITHOUT SEPTIC SHOCK Status: Acute (9) Anemia, macrocytic Code(s): D53.9 - NUTRITIONAL ANEMIA, UNSPECIFIED Status: Chronic (10) H/O: CVA (cerebrovascular accident) Code(s): Z86.73 - PRSNL HX OF TIA (TIA), AND CEREB INFRC W/O RESID DEFICITS Status: Chronic (11) History of throat cancer Code(s): Z85.819 - PRSNL HX OF MALIG NEOPLM OF UNSP SITE LIP,ORAL CAV,& PHARYNX Status: Chronic (12) Oropharyngeal dysphagia Code(s): R13.12 - DYSPHAGIA, OROPHARYNGEAL PHASE Status: Chronic (13) Physical deconditioning Code(s): R53.81 - OTHER MALAISE Status: Chronic (14) Protein-calorie malnutrition, moderate Code(s): E44.0 - MODERATE PROTEIN-CALORIE MALNUTRITION Status: Chronic - Plan cont current plan of care, continue antibiotics, PT/OT, social services analyst, respiratory therapy * today plan for PEG tube placement * after that will start tube feeding as per dietitian recommendation * continue current IV antibiotics * repeat labs tomorrow * medical case worker for discharge planning * medication reviewed as below * symptomatic treatment. Review of Systems - Review of Systems Other: not reliable due to dementia - Medications/Allergies Allergies/Adverse Reactions: Allergies Allergy/AdvReac Type Severity Reaction Status Date / Time Sulfa (Sulfonamide Allergy Intermediate Verified 03/26/17 17:44 Antibiotics) Medications: Current Medications Acetaminophen (Tylenol) 650 mg PO Q4H PRN PRN Reason: Headache/Fever or Pain Al Hydroxide/Mg Hydroxide (Maalox) 30 ml PO Q6H PRN PRN Reason: Heartburn or Indigestion Albuterol/Ipratropium (Duoneb) 3 ml NEB [id number] [facility] Last Admin: 03/30/17 07:45 Dose: Not Given Amlodipine Besylate (Norvasc) 5 mg PO DAILY [facility] Last Admin: 03/29/17 09:31 Dose: Not Given Artificial Tears (Tears Renewed 15ml Bottle) 0 drop EA EYE PRN PRN PRN Reason: Dry Eyes Aspirin (Aspirin) 325 mg PO DAILY [facility] Last Admin: 11/25/17 09:31 Dose: Not Given Atorvastatin Calcium (Lipitor) 20 mg PO HS [facility] Last Admin: 03/29/17 20:23 Dose: Not Given Bisacodyl (Dulcolax) [address] Q24H PRN PRN Reason: Constipation Cefazolin Sodium (Ancef) 2 gm SLOW IVP WILLCALL [facility] Stop: 03/31/17 00:46 Cyanocobalamin (Vitamin B-12) 1,000 mcg PO DAILY [facility] Last Admin: 03/29/17 09:32 Dose: Not Given Docusate Sodium (Colace) 200 mg PO BID [facility] Last Admin: 03/30/17 12:19 Dose: Not Given Epoetin Dominick (Procrit) 10,000 units SC ROUTINE [facility] Last Admin: 03/29/17 15:49 Dose: 10,000 units Ferrous Sulfate (Feosol) 325 mg PO QAM[facility] Last Admin: 03/29/17 09:31 Dose: Not Given Folic Acid (Folvite) 1 mg PO DAILY [facility] Last Admin: 03/29/17 09:32 Dose: Not Given Gabapentin (Neurontin) 200 mg PO TID [facility] Last Admin: 03/30/17 12:20 Dose: Not Given Guaifenesin (Robitussin Sf) 200 mg PO Q4H PRN PRN Reason: Cough Heparin Sodium (Porcine) (Heparin) 5,000 units SC BID [facility] Last Admin: 03/30/17 12:20 Dose: Not Given Hydralazine HCl (Apresoline) 10 mg SLOW IVP Q4H PRN PRN Reason: Systolic BP > 180 Dextrose/Water (D5w) 1,000 mls @ 100 mls/hr IV .Q10H [facility] Last Admin: 03/30/17 00:04 Dose: 1,000 mls Piperacillin Sod/Tazobactam Sod 3.375 gm/ Miscellaneous Medication 1 each/ Sodium Chloride 100 mls @ 200 mls/hr IVPB Q6HR [facility] Last Admin: 03/30/17 05:31 Dose: 100 mls Labetalol HCl (Normodyne) 20 mg SLOW IVP Q4H PRN PRN Reason: Systolic BP > 180 Loperamide HCl (Imodium) 2 mg PO PRN PRN PRN Reason: Diarrhea/Loose Stools Magnesium Hydroxide (Milk Of Magnesium) 30 ml PO DAILYPRN PRN PRN Reason: Constipation Megestrol Acetate (Megace) 40 mg PO DAILY [facility] Last Admin: 03/29/17 09:33 Dose: Not Given Metoprolol Tartrate (Lopressor) 25 mg PO BID [facility] Last Admin: 03/29/17 20:25 Dose: Not Given Mineral Oil/White Petrolatum (Eucerin Cream) 0 gm TOP BIDPRN PRN PRN Reason: Dry Skin Multivitamins (Theragran) 1 tab PO DAILY [facility] Last Admin: 03/29/17 09:33 Dose: Not Given Ondansetron HCl (Zofran) 4 mg IVP Q6H PRN PRN Reason: Nausea/Vomiting Potassium Chloride (K-Dur) 20 meq PO DAILY [facility] Last Admin: 03/29/17 09:33 Dose: Not Given Pyridoxine HCl (Vitamin B 6) 50 mg PO DAILY [facility] Last Admin: 03/29/17 09:33 Dose: Not Given Quetiapine Fumarate (Seroquel) 25 mg PO HS [facility] Last Admin: 03/29/17 20:25 Dose: Not Given Saccharomyces Boulardii (Florastor) 250 mg PO DAILY [facility] Last Admin: 03/29/17 09:33 Dose: Not Given Sodium Chloride ([place] Nasal [place] 0.65%) 0 ml EA NARE QIDPRN PRN PRN Reason: Nasal Congestion Sodium Chloride (Flush - Normal Saline) 10 ml IVF Q12HR [facility] Last Admin: 03/29/17 20:23 Dose: Not Given Sodium Chloride (Flush - Normal Saline) 10 ml IVF PRN PRN PRN Reason: Saline Flush Tramadol HCl (Ultram) 50 mg PO QIDPRN PRN PRN Reason: Pain
--- NOTE | 2017-03-30 12:49 | PRG ---
DATE OF SERVICE: 03/30/2017 SUBJECTIVE: Mr. Pires had a PEG tube placed today. He looks okay. PHYSICAL EXAMINATION: VITAL SIGNS: Temperature 98.7, pulse 90, respirations 18, O2 saturation 94%, blood pressure 164/80. HEENT: Unremarkable. NECK: Severe muscle wasting, no JVD. LUNGS: Coarse rhonchi. CARDIOVASCULAR: S1, S2 regular. ABDOMEN: Soft. EXTREMITIES: No edema. LABORATORY DATA: White blood cell count 12, hematocrit 28.6, platelet count 72. Sodium 134, potassi um 3.6, BUN 30, creatinine 1.2, glucose 69. ASSESSMENT: 1. Status post respiratory failure, requiring mechanical ventilation. 2. History of renal cell carcinoma with metastasis to the lungs. 3. Status post acute respiratory failure, status post PEG tube placement. 4. Swallowing dysfunction. PLAN: PEG tube has been placed. If he continues to have problems with excessive secretions and I wo uld recommend scopolamine patch, should be able to stop antibiotics after 7 full days of treatment. Nothing further to add at this time.
[2017-03-30] MEDS: Megestrol Acetate 40 MG TAB PO SCH (13:46)
[2017-03-30] MEDS: pyridOXINE 50 MG (B6) TAB PO SCH (13:49)
[2017-03-30] MEDS: Folic Acid 1 MG TAB PO SCH (13:49)
[2017-03-30] MEDS: Ferrous Sulfate 325 MG TAB PO SCH (13:52)
[2017-03-30] MEDS: Aspirin 325 MG TAB PO SCH (13:52)
[2017-03-30] MEDS: Amlodipine 5 MG TAB PO SCH (13:53)
[2017-03-30] MEDS: Saccharomyces boulardii 250 MG CAP PO SCH (13:54)
[2017-03-30] MEDS: Multivit, Therapeutic 1 TAB PO SCH (13:55)
[2017-03-30] MEDS: Cyanocobalamin (Vitamin B-12) 1,000 MCG TAB PO SCH (13:55)
[2017-03-30] MEDS: Potassium Chloride 20 MEQ TAB PO SCH (13:55)
[2017-03-30] MEDS: Metoprolol Tartrate 25 MG TAB PO SCH ×2 (13:55→21:47)
--- NOTE | 2017-03-30 14:13 | OP ---
GI ENDOSCOPY NOTE DATE OF PROCEDURE: 03/30/2017 SURGEON: Mike Szymanski M.D. LABOR RELATIONS WORKER SURGEON: None. PROCEDURE: Esophagogastroduodenoscopy with PEG tube placement. INDICATIONS: 1. Oropharyngeal dysphagia. 2. Aspiration pneumonia. MEDICATIONS: 1. See anesthesia record. 2. Ancef 2 grams IV. 3. The patient is receiving Zosyn IV on the floor. FINDINGS: After discussion of the risks, benefits and alternatives of the procedure, informed consen t was obtained and witnessed. Pre-endoscopic cardiopulmonary examination was satisfactory. Timeout was performed before sedation was achieved. Sedation was achieved with anesthesia assistance in the endoscopy unit. The patient was placed in the supine position. A Pentax adult upper endoscope was p laced into the oropharynx and passed through the cricopharyngeus under direct visualization. The eso phageal mucosa appeared normal throughout with a normal-appearing Z-line. The endoscope was advanced into the stomach. Forward and retroflexed views of the entire gastric mucosa were obtained. In the gastric fundus near the GE junction, there is a linear ulceration with overlying black eschar. No v isible vessel, no blood clot visualized. This was nonbleeding. It has the appearance of likely isch emic related ulcer. The endoscope was passed through the pylorus and into the first and second porti ons of the duodenum, which appeared normal. The upper endoscope was then withdrawn back into the sto mach. Using one-to-one pressure and transillumination methods, a suitable site for PEG placement was located in the left upper quadrant. The site was prepped and draped in a sterile fashion. A 1 cm h orizontal incision was then made at PEG site after anesthetizing with subcutaneous lidocaine. The in troducer needle and catheter were then introduced transcutaneously into the gastric lumen. A wire wa s passed through the catheter and grasped with a snare and then pulled out of the mouth. A 20-Kitt[place] traction PEG tube was affixed to the wire and pulled through into position in the usual fashion with out difficulty. The endoscope was used again to reexamine the internal bumper from the gastric side and it appeared to be in good position. The external bumper clamp and ports were then affixed to the tube. The endoscope was removed and the procedure was completed. The patient tolerated the procedu re well. There were no immediate postprocedure complications. The external bumper was placed snugly at 2 cm. IMPRESSION: 1. Successful placement of 20-Kitt[place] traction PEG tube to the left upper quadrant, with external bum per at 2 cm. 2. Ischemic appearing ulcer in the gastric fundus, nonbleeding, no high risk stigmata for bleeding. RECOMMENDATIONS: 1. Consider tube feeds in 4 hours. 2. Daily PPI. 3. I will plan to come by tomorrow to check the PEG tube site and likely loosen the external bumper.
[2017-03-30] MEDS: Epoetin (ESRD) 10,000 UNITS/ML VIAL SC SCH (15:04)
[2017-03-30] MEDS ORDERED: Sterile Water 10 ML VIAL ONE (17:32)
[2017-03-30] MEDS ORDERED: Propofol 200 MG/20 ML VIAL ONE (17:32)
[2017-03-30] MEDS ORDERED: CEFAZOLIN 1 GM VIAL ONE (17:32)
[2017-03-30] MEDS ORDERED: Lidocaine 1% PF 5 ML VIAL ONE (17:32)
[2017-03-30] MEDS: Atorvastatin Calcium 20 MG TAB PO SCH (21:47)
[2017-03-30] MEDS: Terazosin HCl 1 MG CAP PO SCH (21:47)
[2017-03-30] MEDS: Docusate Sodium 100 MG/10 ML UDCUP PO SCH (21:48)
[2017-03-31] MEDS: Piperacillin/Tazobactam 3.375 GM, Admixture Fee 1 EACH in Sodium Chloride 0.9% 100 ML IVPB SCH ×4 (04:57→23:50)
[2017-03-31] MEDS: Dextrose 5% in Water 1,000 ML IV SCH ×2 (04:58→09:11)
[2017-03-31 05:40] LABS: Anisocytosis MODERATE=16-30 cells (100X) (0-5/hpf); Band 11 % (5-11); Mean Platelet Volume 9.4 fL (7.4-10.4); Neutrophil 68 % (42-75); Red Blood Cell (RBC) Count 3.02 mill/uL (4.70-6.10); White Blood Cell (WBC) Count 11.2 thou/uL (4.8-10.8)
[2017-03-31 05:48] LABS: Anion Gap 13 mmol/L (10-20); BUN (Urea Nitrogen) 27 mg/dL (8.4-25.7); Calc. Creatinine Clearance 34 mL/min (70-130); Calcium 7.9 mg/dL (7.8-10.44); Carbon Dioxide 19 mmol/L (23-31); Chloride 105 mmol/L (98-107); Estimated GFR-MDRD 66
[2017-03-31] MEDS: Aspirin 325 MG TAB PO SCH (09:14)
[2017-03-31] MEDS: Saccharomyces boulardii 250 MG CAP PO SCH (09:14)
[2017-03-31] MEDS: Gabapentin 100 MG CAP PO SCH ×3 (09:14→21:45)
[2017-03-31] MEDS: Docusate Sodium 100 MG/10 ML UDCUP PO SCH ×2 (09:14→21:45)
[2017-03-31] MEDS: Ferrous Sulfate 325 MG TAB PO SCH (09:14)
[2017-03-31] MEDS: Potassium Chloride 20 MEQ TAB PO SCH (09:14)
[2017-03-31] MEDS: pyridOXINE 50 MG (B6) TAB PO SCH (09:15)
[2017-03-31] MEDS: Metoprolol Tartrate 25 MG TAB PO SCH ×2 (09:15→21:45)
[2017-03-31] MEDS: Megestrol Acetate 40 MG TAB PO SCH (09:15)
[2017-03-31] MEDS: Folic Acid 1 MG TAB PO SCH (09:15)
[2017-03-31] MEDS: Cyanocobalamin (Vitamin B-12) 1,000 MCG TAB PO SCH (09:15)
[2017-03-31] MEDS: Multivit, Therapeutic 1 TAB PO SCH (09:15)
[2017-03-31] MEDS: Amlodipine 5 MG TAB PO SCH (09:15)
--- NOTE | 2017-03-31 10:20 | PRG ---
DATE OF SERVICE: 03/31/2017 SERVICE: Pulmonary Medicine. INTERVAL HISTORY: The patient is doing great from a respiratory standpoint. He cannot provide reall y any additional elements of the history. He attends when he walked in the room, but he does not fol low any commands. He looks to be in no apparent distress. PHYSICAL EXAMINATION: VITAL SIGNS: Afebrile with a T-max of 99.3, pulse 104, blood pressure 159/67, respirations 20, satur ation 95% on 2 liters nasal cannula. HEENT: Normocephalic, atraumatic. Sclerae are white, conjunctivae pink. Oral and nasal mucosa are moist without lesions. LUNGS: Excellent air entry without prolonged expiratory phase or wheezing. Rhonchi are present and more predominantly displayed on the right. No crackles. HEART: Normal rate: Tachycardic. Regular. ABDOMEN: Soft, nontender, nondistended. Bowel sounds positive. MUSCULOSKELETAL: No cyanosis or clubbing. No pitting in the bilateral lower extremities. He has go t skin tenting throughout. LABORATORY DATA: WBC 11.2, hemoglobin 9.4, platelets 58,000 and trending downward aggressively. Bas ic metabolic profile is essentially unremarkable. Lactate is 2.4 and gently down trending. Urinalys is is unremarkable. Blood cultures x2 are negative. ASSESSMENT: 1. Acute hypoxic respiratory failure, initially required mechanical ventilation, resolved. 2. Renal cell carcinoma with lung metastases. 3. Acute cerebrovascular accident with oropharyngeal dysphagia. PLAN: The PEG tube is ready to be used. Tube feeds will be initiated. As such, his D5 water will b e discontinued. Since he is going down, we will provide him with NS at 50 mL per hour. This can be tapered off as time goes on. Pulmonary Critical Care will continue to follow what the patient remain s in house for the time being, but from a purely respiratory perspective, he is stable for transition out of the hospital.
[2017-03-31] MEDS: Sodium Chloride 0.9% 1,000 ML IV SCH (10:50)
--- NOTE | 2017-03-31 11:42 | PDOC.PN ---
- Subjective Encounter Start Date: 03/31/17 Encounter Start Time: 08:00 Patient seen and examined. No new complaints. No overnight events - Objective Resuscitation Status: Resuscitation Status FULL:Full Resuscitation MAR Reviewed: Yes Vital Signs & Weight: Vital Signs (12 hours) Temp Pulse Resp BP BP BP Pulse Ox 03/31/17 09:15 107 H 159/67 H 03/31/17 08:50 99.3 F 104 H 20 159/67 H 95 03/31/17 07:07 83 15 98 03/31/17 03:55 98.6 F 96 20 153/71 H 96 03/31/17 00:39 90 16 94 L 03/30/17 23:40 99.1 F 84 20 142/63 H 94 L Weight Admit Weight 136 lb Weight 132 lb 9.6 oz Most Recent Monitor Data Heart Rate from ECG 90 NIBP 144/71 NIBP BP-Mean 84 Respiration from ECG 22 SpO2 96 I&O: 03/30/17 03/31/17 04/01/17 06:59 06:59 06:59 Intake Total 1200 1200 Output Total 3060 2500 Balance -1860 -1300 Result Diagrams: 03/31/17 04:07 03/31/17 04:07 Phys Exam - Physical Examination Constitutional: NAD HEENT: PERRLA, moist MMs, sclera anicteric Neck: no JVD, supple Respiratory: no wheezing, no rales, no rhonchi Cardiovascular: RRR, no significant murmur, no rub Gastrointestinal: soft, non-tender, no distention, positive bowel sounds PEG+ Musculoskeletal: no edema, pulses present residual weakness Psychiatric: normal affect Skin: no rash, normal turgor Dx/Plan (1) Acute kidney failure Status: Resolved (2) Acute respiratory failure with hypoxia Code(s): J96.01 - ACUTE RESPIRATORY FAILURE WITH HYPOXIA Status: Acute (3) Aspiration pneumonia Code(s): J69.0 - PNEUMONITIS DUE TO INHALATION OF FOOD AND VOMIT Status: Acute (4) Demand ischemia of myocardium Code(s): I24.8 - OTHER FORMS OF ACUTE ISCHEMIC HEART DISEASE Status: Acute (5) Encephalopathy acute Code(s): G93.40 - ENCEPHALOPATHY, UNSPECIFIED Status: Acute (6) Hyperkalemia Code(s): E87.5 - HYPERKALEMIA Status: Resolved (7) Metabolic acidosis Code(s): E87.2 - ACIDOSIS Status: Acute (8) Sepsis with acute organ dysfunction Code(s): A41.9 - SEPSIS, UNSPECIFIED ORGANISM; R65.20 - SEVERE SEPSIS WITHOUT SEPTIC SHOCK Status: Acute (9) Anemia, macrocytic Code(s): D53.9 - NUTRITIONAL ANEMIA, UNSPECIFIED Status: Chronic (10) H/O: CVA (cerebrovascular accident) Code(s): Z86.73 - PRSNL HX OF TIA (TIA), AND CEREB INFRC W/O RESID DEFICITS Status: Chronic (11) History of throat cancer Code(s): Z85.819 - PRSNL HX OF MALIG NEOPLM OF UNSP SITE LIP,ORAL CAV,& PHARYNX Status: Chronic (12) Oropharyngeal dysphagia Code(s): R13.12 - DYSPHAGIA, OROPHARYNGEAL PHASE Status: Chronic (13) Physical deconditioning Code(s): R53.81 - OTHER MALAISE Status: Chronic (14) Protein-calorie malnutrition, moderate Code(s): E44.0 - MODERATE PROTEIN-CALORIE MALNUTRITION Status: Chronic (15) Thrombocytopenia Code(s): D69.6 - THROMBOCYTOPENIA, UNSPECIFIED Status: Acute - Plan cont current plan of care, continue antibiotics, PT/OT, neonatal social worker * DC heparin * start tube feeding and increase as tolerated * medication reviewed as below * symptomatic treatment * start discharge planning * repeat labs tomorrow * continue iv antibiotics as below. Review of Systems - Review of Systems Other: not reliable due to dementia - Medications/Allergies Allergies/Adverse Reactions: Allergies Allergy/AdvReac Type Severity Reaction Status Date / Time Sulfa (Sulfonamide Allergy Intermediate Verified 03/26/17 17:44 Antibiotics) Medications: Current Medications Acetaminophen (Tylenol) 650 mg PO Q4H PRN PRN Reason: Headache/Fever or Pain Al Hydroxide/Mg Hydroxide (Maalox) 30 ml PO Q6H PRN PRN Reason: Heartburn or Indigestion Albuterol/Ipratropium (Duoneb) 3 ml NEB [id number] LINDA Last Admin: 03/31/17 07:07 Dose: 3 ml Amlodipine Besylate (Norvasc) 5 mg PO DAILY [facility] Last Admin: 03/31/17 09:15 Dose: 5 mg Artificial Tears (Tears Renewed 15ml Bottle) 0 drop EA EYE PRN PRN PRN Reason: Dry Eyes Aspirin (Aspirin) 325 mg PO DAILY [facility] Last Admin: 03/31/17 09:14 Dose: 325 mg Atorvastatin Calcium (Lipitor) 20 mg PO HS [facility] Last Admin: 03/30/17 21:47 Dose: 20 mg Bisacodyl (Dulcolax) 10 mg [place] Q24H PRN PRN Reason: Constipation Cyanocobalamin (Vitamin B-12) 1,000 mcg PO DAILY [facility] Last Admin: 03/31/17 09:15 Dose: 1,000 mcg Docusate Sodium (Colace Liquid) 200 mg PO BID [facility] Last Admin: 03/31/17 09:14 Dose: 200 mg Epoetin Dominick (Procrit) 10,000 units SC Q7D@1200 [facility] Ferrous Sulfate (Feosol) 325 mg PO QA-[facility] Last Admin: 03/31/17 09:14 Dose: 325 mg Folic Acid (Folvite) 1 mg PO DAILY [facility] Last Admin: 03/31/17 09:15 Dose: 1 mg Gabapentin (Neurontin) 200 mg PO TID [facility] Last Admin: 03/31/17 09:14 Dose: 200 mg Guaifenesin (Robitussin Sf) 200 mg PO Q4H PRN PRN Reason: Cough Hydralazine HCl (Apresoline) 10 mg SLOW IVP Q4H PRN PRN Reason: Systolic BP > 180 Piperacillin Sod/Tazobactam Sod 3.375 gm/ Miscellaneous Medication 1 each/ Sodium Chloride 100 mls @ 200 mls/hr IVPB Q6HR [facility] Last Admin: 03/31/17 04:57 Dose: 100 mls Sodium Chloride (Normal Saline 0.9%) 1,000 mls @ 50 mls/hr IV .Q20H [facility] Last Admin: 03/31/17 10:50 Dose: 1,000 mls Labetalol HCl (Normodyne) 20 mg SLOW IVP Q4H PRN PRN Reason: Systolic BP > 180 Loperamide HCl (Imodium) 2 mg PO PRN PRN PRN Reason: Diarrhea/Loose Stools Magnesium Hydroxide (Milk Of Magnesium) 30 ml PO DAILYPRN PRN PRN Reason: Constipation Megestrol Acetate (Megace) 40 mg PO DAILY [facility] Last Admin: 03/31/17 09:15 Dose: 40 mg Metoprolol Tartrate (Lopressor) 25 mg PO BID [facility] Last Admin: 03/31/17 09:15 Dose: 25 mg Mineral Oil/White Petrolatum (Eucerin Cream) 0 gm TOP BIDPRN PRN PRN Reason: Dry Skin Multivitamins (Theragran) 1 tab PO DAILY [facility] Last Admin: 03/31/17 09:15 Dose: 1 tab Ondansetron HCl (Zofran) 4 mg IVP Q6H PRN PRN Reason: Nausea/Vomiting Potassium Chloride (K-Dur) 20 meq PO DAILY [facility] Last Admin: 03/31/17 09:14 Dose: 20 meq Pyridoxine HCl (Vitamin B 6) 50 mg PO DAILY [facility] Last Admin: 03/31/17 09:15 Dose: 50 mg Quetiapine Fumarate (Seroquel) 25 mg PO HS [facility] Last Admin: 03/30/17 21:47 Dose: 25 mg Saccharomyces Boulardii (Florastor) 250 mg PO DAILY [facility] Last Admin: 03/31/17 09:14 Dose: 250 mg Sodium Chloride ([place] Nasal [place] 0.65%) 0 ml EA NARE QIDPRN PRN PRN Reason: Nasal Congestion Sodium Chloride (Flush - Normal Saline) 10 ml IVF Q12HR [facility] Last Admin: 03/31/17 09:16 Dose: Not Given Sodium Chloride (Flush - Normal Saline) 10 ml IVF PRN PRN PRN Reason: Saline Flush Terazosin HCl (Hytrin) 4 mg PO HS [facility] Last Admin: 03/30/17 21:47 Dose: 4 mg Tramadol HCl (Ultram) 50 mg PO QIDPRN PRN PRN Reason: Pain
[2017-03-31] MEDS: Atorvastatin Calcium 20 MG TAB PO SCH (21:45)
[2017-03-31] MEDS: Terazosin HCl 1 MG CAP PO SCH (21:45)
[2017-04-01] MEDS: Piperacillin/Tazobactam 3.375 GM, Admixture Fee 1 EACH in Sodium Chloride 0.9% 100 ML IVPB SCH ×3 (05:04→17:52)
[2017-04-01] MEDS: Sodium Chloride 0.9% 1,000 ML IV SCH (05:09)
[2017-04-01 05:55] LABS: Anion Gap 11 mmol/L (10-20); BUN (Urea Nitrogen) 25 mg/dL (8.4-25.7); Calc. Creatinine Clearance 35 mL/min (70-130); Calcium 7.7 mg/dL (7.8-10.44); Carbon Dioxide 20 mmol/L (23-31); Chloride 107 mmol/L (98-107); Estimated GFR-MDRD 68
[2017-04-01 05:58] LABS: Anisocytosis SLIGHT = 6-15 cells (100X) (0-5/hpf); Band 4 % (5-11); Hematocrit 27.5 % (42.0-52.0); Macrocytosis SLIGHT = 6-15 cells (100X) (0-5/hpf); Mean Platelet Volume 13.9 fL (7.4-10.4); Neutrophil 79 % (42-75); Red Blood Cell (RBC) Count 2.85 mill/uL (4.70-6.10)
[2017-04-01] MEDS ORDERED: Potassium Chloride 20 MEQ TAB PER TUBE SCH ×2 (07:49→08:00)
[2017-04-01] MEDS: Gabapentin 100 MG CAP PO SCH ×3 (09:26→20:01)
[2017-04-01] MEDS: Aspirin 325 MG TAB PO SCH (09:26)
[2017-04-01] MEDS: Folic Acid 1 MG TAB PO SCH (09:27)
[2017-04-01] MEDS: pyridOXINE 50 MG (B6) TAB PO SCH (09:27)
[2017-04-01] MEDS: Cyanocobalamin (Vitamin B-12) 1,000 MCG TAB PO SCH (09:27)
[2017-04-01] MEDS: Saccharomyces boulardii 250 MG CAP PO SCH (09:27)
[2017-04-01] MEDS: Ferrous Sulfate 325 MG TAB PO SCH (09:27)
[2017-04-01] MEDS: Megestrol Acetate 40 MG TAB PO SCH (09:27)
[2017-04-01] MEDS: Multivit, Therapeutic 1 TAB PO SCH (09:27)
[2017-04-01] MEDS: Metoprolol Tartrate 25 MG TAB PO SCH ×2 (09:27→20:02)
[2017-04-01] MEDS: Docusate Sodium 100 MG/10 ML UDCUP PO SCH ×2 (09:40→20:02)
[2017-04-01] MEDS: Amlodipine 5 MG TAB PO SCH (09:40)
--- NOTE | 2017-04-01 11:42 | PDOC.PN ---
- Subjective Encounter Start Date: 04/01/17 Encounter Start Time: 10:55 Patient seen and examined. No new complaints. No overnight events - Objective Resuscitation Status: Resuscitation Status FULL:Full Resuscitation MAR Reviewed: Yes Vital Signs & Weight: Vital Signs (12 hours) Temp Pulse Resp BP Pulse Ox 04/01/17 08:00 99.5 F 104 H 20 122/66 94 L 04/01/17 06:59 92 L 04/01/17 06:58 97 18 92 L 04/01/17 00:45 100 16 98 Weight Admit Weight 136 lb Weight 137 lb 6 oz Most Recent Monitor Data Heart Rate from ECG 90 NIBP 144/71 NIBP BP-Mean 84 Respiration from ECG 22 SpO2 96 I&O: 03/31/17 04/01/17 04/02/17 06:59 06:59 06:59 Intake Total 1200 1415 100 Output Total 2500 800 Balance -1300 615 100 Result Diagrams: 04/01/17 04:03 04/01/17 04:03 Phys Exam - Physical Examination Constitutional: NAD HEENT: PERRLA, moist MMs, sclera anicteric Neck: no JVD, supple Respiratory: no wheezing, no rales, no rhonchi Cardiovascular: RRR, no significant murmur, no rub Gastrointestinal: soft, non-tender, no distention, positive bowel sounds PEG+ Musculoskeletal: no edema, pulses present residual weakness Psychiatric: normal affect Skin: no rash, normal turgor Dx/Plan (1) Acute kidney failure Status: Resolved (2) Acute respiratory failure with hypoxia Code(s): J96.01 - ACUTE RESPIRATORY FAILURE WITH HYPOXIA Status: Acute (3) Aspiration pneumonia Code(s): J69.0 - PNEUMONITIS DUE TO INHALATION OF FOOD AND VOMIT Status: Acute (4) Demand ischemia of myocardium Code(s): I24.8 - OTHER FORMS OF ACUTE ISCHEMIC HEART DISEASE Status: Acute (5) Encephalopathy acute Code(s): G93.40 - ENCEPHALOPATHY, UNSPECIFIED Status: Acute (6) Hyperkalemia Code(s): E87.5 - HYPERKALEMIA Status: Resolved (7) Metabolic acidosis Code(s): E87.2 - ACIDOSIS Status: Acute (8) Sepsis with acute organ dysfunction Code(s): A41.9 - SEPSIS, UNSPECIFIED ORGANISM; R65.20 - SEVERE SEPSIS WITHOUT SEPTIC SHOCK Status: Acute (9) Anemia, macrocytic Code(s): D53.9 - NUTRITIONAL ANEMIA, UNSPECIFIED Status: Chronic (10) H/O: CVA (cerebrovascular accident) Code(s): Z86.73 - PRSNL HX OF TIA (TIA), AND CEREB INFRC W/O RESID DEFICITS Status: Chronic (11) History of throat cancer Code(s): Z85.819 - PRSNL HX OF MALIG NEOPLM OF UNSP SITE LIP,ORAL CAV,& PHARYNX Status: Chronic (12) Oropharyngeal dysphagia Code(s): R13.12 - DYSPHAGIA, OROPHARYNGEAL PHASE Status: Chronic (13) Physical deconditioning Code(s): R53.81 - OTHER MALAISE Status: Chronic (14) Protein-calorie malnutrition, moderate Code(s): E44.0 - MODERATE PROTEIN-CALORIE MALNUTRITION Status: Chronic (15) Thrombocytopenia Code(s): D69.6 - THROMBOCYTOPENIA, UNSPECIFIED Status: Acute - Plan cont current plan of care, continue antibiotics, PT/OT, social worker palliative care * add augmentin 500 mg per tube bid * continue selected home meds * medication reviewed as below * symptomatic treatment * await palcement * continue tube feeding. * continue IVF Review of Systems - Review of Systems Other: not reliable due to dementia - Medications/Allergies Allergies/Adverse Reactions: Allergies Allergy/AdvReac Type Severity Reaction Status Date / Time Sulfa (Sulfonamide Allergy Intermediate Verified 03/26/17 17:44 Antibiotics) Medications: Current Medications Acetaminophen (Tylenol) 650 mg PO Q4H PRN PRN Reason: Headache/Fever or Pain Al Hydroxide/Mg Hydroxide (Maalox) 30 ml PO Q6H PRN PRN Reason: Heartburn or Indigestion Albuterol/Ipratropium (Duoneb) 3 ml NEB [id number] LINDA Last Admin: 04/01/17 06:58 Dose: 3 ml Amlodipine Besylate (Norvasc) 5 mg PO DAILY [facility] Last Admin: 04/01/17 09:40 Dose: 5 mg Artificial Tears (Tears Renewed 15ml Bottle) 0 drop EA EYE PRN PRN PRN Reason: Dry Eyes Aspirin (Aspirin) 325 mg PO DAILY [facility] Last Admin: 04/01/17 09:26 Dose: 325 mg Atorvastatin Calcium (Lipitor) 20 mg PO HS LINDA Last Admin: 03/31/17 21:45 Dose: 20 mg Bisacodyl (Dulcolax) 10 mg [place] Q24H PRN PRN Reason: Constipation Cyanocobalamin (Vitamin B-12) 1,000 mcg PO DAILY [facility] Last Admin: 04/01/17 09:27 Dose: 1,000 mcg Docusate Sodium (Colace Liquid) 200 mg PO BID [facility] Last Admin: 04/01/17 09:40 Dose: 200 mg Epoetin Dominick (Procrit) 10,000 units SC Q7D@1200 [facility] Ferrous Sulfate (Ferrous Sulfate) 300 mg PER TUBE QA-[facility] Folic Acid (Folvite) 1 mg PO DAILY [facility] Last Admin: 04/01/17 09:27 Dose: 1 mg Gabapentin (Neurontin) 200 mg PO TID [facility] Last Admin: 04/01/17 09:26 Dose: 200 mg Guaifenesin (Robitussin Sf) 200 mg PO Q4H PRN PRN Reason: Cough Hydralazine HCl (Apresoline) 10 mg SLOW IVP Q4H PRN PRN Reason: Systolic BP > 180 Piperacillin Sod/Tazobactam Sod 3.375 gm/ Miscellaneous Medication 1 each/ Sodium Chloride 100 mls @ 200 mls/hr IVPB Q6HR [facility] Last Admin: 04/01/17 05:04 Dose: 100 mls Sodium Chloride (Normal Saline 0.9%) 1,000 mls @ 50 mls/hr IV .Q20H [facility] Last Admin: 04/01/17 05:09 Dose: 1,000 mls Labetalol HCl (Normodyne) 20 mg SLOW IVP Q4H PRN PRN Reason: Systolic BP > 180 Loperamide HCl (Imodium) 2 mg PO PRN PRN PRN Reason: Diarrhea/Loose Stools Magnesium Hydroxide (Milk Of Magnesium) 30 ml PO DAILYPRN PRN PRN Reason: Constipation Megestrol Acetate (Megace) 40 mg PO DAILY [facility] Last Admin: 04/01/17 09:27 Dose: 40 mg Metoprolol Tartrate (Lopressor) 25 mg PO BID [facility] Last Admin: 04/01/17 09:27 Dose: 25 mg Mineral Oil/White Petrolatum (Eucerin Cream) 0 gm TOP BIDPRN PRN PRN Reason: Dry Skin Multivitamins (Theragran) 1 tab PO DAILY [facility] Last Admin: 04/01/17 09:27 Dose: 1 tab Ondansetron HCl (Zofran) 4 mg IVP Q6H PRN PRN Reason: Nausea/Vomiting Potassium Chloride (Klor-Con) 20 meq PER TUBE DAILY [facility] Pyridoxine HCl (Vitamin B 6) 50 mg PO DAILY [facility] Last Admin: 04/01/17 09:27 Dose: 50 mg Quetiapine Fumarate (Seroquel) 25 mg PO HS [facility] Last Admin: 03/31/17 21:45 Dose: 25 mg Saccharomyces Boulardii (Florastor) 250 mg PO DAILY [facility] Last Admin: 04/01/17 09:27 Dose: 250 mg Sodium Chloride ([place] Nasal [place] 0.65%) 0 ml EA NARE QIDPRN PRN PRN Reason: Nasal Congestion Sodium Chloride (Flush - Normal Saline) 10 ml IVF Q12HR [facility] Last Admin: 04/01/17 09:28 Dose: Not Given Sodium Chloride (Flush - Normal Saline) 10 ml IVF PRN PRN PRN Reason: Saline Flush Terazosin HCl (Hytrin) 4 mg PO HS [facility] Last Admin: 03/31/17 21:45 Dose: 4 mg Tramadol HCl (Ultram) 50 mg PO QIDPRN PRN PRN Reason: Pain
[2017-04-01] MEDS ORDERED: Epoetin (ESRD) 10,000 UNITS/ML VIAL SC SCH (12:00)
--- NOTE | 2017-04-01 16:47 | PRG ---
DATE OF SERVICE: 04/01/2017 SERVICE: Pulmonary Medicine. INTERVAL HISTORY: The patient is doing well from a respiratory standpoint. He remains on room air. He indicates he is not having any difficulties with breathing or chest discomfort. He is suggesting that there is nothing that I can do to make his stay here more comfortable presently. PHYSICAL EXAMINATION: VITAL SIGNS: Afebrile, pulse 104, blood pressure 122/66, respirations 20, saturation 94% on 2 liters nasal cannula. HEENT: Normocephalic, atraumatic. Sclerae are white, conjunctivae pink. Oral and nasal mucosa is m oist without lesions. LUNGS: Decent air entry. There is no prolonged expiratory phase, wheezing, rhonchi or crackles. HEART: Normal rate and regular. ABDOMEN: Soft, nontender, and nondistended. Bowel sounds positive. MUSCULOSKELETAL: No cyanosis or clubbing. No pitting in the bilateral lower extremities. LABORATORY DATA: WBC 10.0, hemoglobin 8.7, and platelets 59,000. Basic metabolic profile is essenti ally unremarkable except for potassium of 3.4. Creatinine is stable at 1.21. Blood cultures x2 were unremarkable. ASSESSMENT: 1. Acute hypoxic respiratory failure, initially requiring mechanical ventilation, resolved. 2. Renal cell carcinoma with lung metastases. 3. Acute cerebrovascular accident with oropharyngeal dysphagia. PLAN: He is tolerating his tube feeds. As such, IV fluids will be discontinued. We will watch his volume very closely and give him intermittent doses of Lasix if necessary. At this point, he has no further requirements for inpatient pulmonary opinion. As such, I will sign off. Dose of potassium w ill be provided.
[2017-04-01] MEDS: Atorvastatin Calcium 20 MG TAB PO SCH (20:01)
[2017-04-01] MEDS: Terazosin HCl 1 MG CAP PO SCH (20:01)
[2017-04-01] MEDS: Amoxicillin/Potassium Clav 500 MG TAB PER TUBE SCH (20:02)
[2017-04-02] MEDS: Piperacillin/Tazobactam 3.375 GM, Admixture Fee 1 EACH in Sodium Chloride 0.9% 100 ML IVPB SCH ×5 (00:49→23:29)
[2017-04-02 05:32] LABS: Anion Gap 10 mmol/L (10-20); BUN (Urea Nitrogen) 27 mg/dL (8.4-25.7); Calc. Creatinine Clearance 39 mL/min (70-130); Calcium 7.7 mg/dL (7.8-10.44); Carbon Dioxide 22 mmol/L (23-31); Chloride 110 mmol/L (98-107); Estimated GFR-MDRD 74
[2017-04-02 05:55] LABS: Acanthocytes SLIGHT = 1-5 cells (100X) (None Seen); Anisocytosis SLIGHT = 6-15 cells (100X) (0-5/hpf); Band 9 % (5-11); Macrocytosis SLIGHT = 6-15 cells (100X) (0-5/hpf); Mean Platelet Volume 10.1 fL (7.4-10.4); Neutrophil 73 % (42-75); Ovalocytes SLIGHT = 2-5 cells (100X) (0-1/hpf); Red Blood Cell (RBC) Count 2.68 mill/uL (4.70-6.10); White Blood Cell (WBC) Count 9.2 thou/uL (4.8-10.8)
[2017-04-02] MEDS: Multivit, Therapeutic 1 TAB PO SCH (09:22)
[2017-04-02] MEDS: Metoprolol Tartrate 25 MG TAB PO SCH ×2 (09:22→21:19)
[2017-04-02] MEDS: Cyanocobalamin (Vitamin B-12) 1,000 MCG TAB PO SCH (09:22)
[2017-04-02] MEDS: Saccharomyces boulardii 250 MG CAP PO SCH (09:22)
[2017-04-02] MEDS: pyridOXINE 50 MG (B6) TAB PO SCH (09:22)
[2017-04-02] MEDS: Aspirin 325 MG TAB PO SCH (09:22)
[2017-04-02] MEDS: Amoxicillin/Potassium Clav 500 MG TAB PER TUBE SCH ×2 (09:22→21:23)
[2017-04-02] MEDS: Amlodipine 5 MG TAB PO SCH (09:22)
[2017-04-02] MEDS: Folic Acid 1 MG TAB PO SCH (09:22)
[2017-04-02] MEDS: Docusate Sodium 100 MG/10 ML UDCUP PO SCH ×2 (09:22→21:24)
[2017-04-02] MEDS: Gabapentin 100 MG CAP PO SCH ×3 (09:22→21:17)
[2017-04-02] MEDS: Megestrol Acetate 40 MG TAB PO SCH (09:23)
--- NOTE | 2017-04-02 12:22 | PDOC.PN ---
- Subjective Encounter Start Date: 04/02/17 Encounter Start Time: 07:00 Subjective: awake, not in distress - Objective Resuscitation Status: Resuscitation Status FULL:Full Resuscitation MAR Reviewed: Yes Vital Signs & Weight: Vital Signs (12 hours) Temp Pulse Resp BP Pulse Ox 04/02/17 11:25 99.5 F 86 22 H 95 04/02/17 08:37 101.0 F H 109 H 24 H 145/61 H 93 L 04/02/17 08:00 101.0 F H 109 H 24 H 04/02/17 06:46 94 16 94 L 04/02/17 03:16 97 04/02/17 00:24 94 16 95 Weight Admit Weight 136 lb Weight 137 lb 2 oz Most Recent Monitor Data Heart Rate from ECG 90 NIBP 144/71 NIBP BP-Mean 84 Respiration from ECG 22 SpO2 96 I&O: 04/01/17 04/02/17 04/03/17 06:59 06:59 06:59 Intake Total 1415 2290 220 Output Total 800 700 Balance 615 1590 220 Result Diagrams: 04/02/17 04:24 04/02/17 04:24 Phys Exam - Physical Examination HEENT: PERRLA, sclera anicteric Neck: no JVD, supple Respiratory: no wheezing, no rales Cardiovascular: RRR, no rub Gastrointestinal: soft, no distention, positive bowel sounds peg+ Musculoskeletal: pulses present Neurological: non-focal, moves all 4 limbs Dx/Plan (1) Acute respiratory failure with hypoxia Code(s): J96.01 - ACUTE RESPIRATORY FAILURE WITH HYPOXIA Status: Resolved (2) Aspiration pneumonia Code(s): J69.0 - PNEUMONITIS DUE TO INHALATION OF FOOD AND VOMIT Status: Acute Qualifiers: Aspiration pneumonia type: due to regurgitated food (3) Demand ischemia of myocardium Code(s): I24.8 - OTHER FORMS OF ACUTE ISCHEMIC HEART DISEASE Status: Resolved (4) Encephalopathy acute Code(s): G93.40 - ENCEPHALOPATHY, UNSPECIFIED Status: Acute (5) Sepsis with acute organ dysfunction Code(s): A41.9 - SEPSIS, UNSPECIFIED ORGANISM; R65.20 - SEVERE SEPSIS WITHOUT SEPTIC SHOCK Status: Acute (6) Thrombocytopenia Code(s): D69.6 - THROMBOCYTOPENIA, UNSPECIFIED Status: Acute (7) Anemia, macrocytic Code(s): D53.9 - NUTRITIONAL ANEMIA, UNSPECIFIED Status: Chronic (8) H/O: CVA (cerebrovascular accident) Code(s): Z86.73 - PRSNL HX OF TIA (TIA), AND CEREB INFRC W/O RESID DEFICITS Status: Chronic (9) Oropharyngeal dysphagia Code(s): R13.12 - DYSPHAGIA, OROPHARYNGEAL PHASE Status: Chronic Comment: s/ p peg 03/30/17 (10) Physical deconditioning Code(s): R53.81 - OTHER MALAISE Status: Chronic (11) Protein-calorie malnutrition, moderate Code(s): E44.0 - MODERATE PROTEIN-CALORIE MALNUTRITION Status: Chronic - Plan peg bolus feedings, start with 4 cans and slowly escalate as tolerated -: had fever of 101 this am, unclear source -: is on zosyn and augmentin, nebs -: dc plan when fever subsides to snf -: poor prognosis * . Review of Systems - Medications/Allergies Allergies/Adverse Reactions: Allergies Allergy/AdvReac Type Severity Reaction Status Date / Time Sulfa (Sulfonamide Allergy Intermediate Verified 03/26/17 17:44 Antibiotics) Medications: Current Medications Acetaminophen (Tylenol) 650 mg PO Q4H PRN PRN Reason: Headache/Fever or Pain Last Admin: 04/02/17 09:22 Dose: 650 mg Al Hydroxide/Mg Hydroxide (Maalox) 30 ml PO Q6H PRN PRN Reason: Heartburn or Indigestion Albuterol/Ipratropium (Duoneb) 3 ml NEB [id number] [facility] Last Admin: 04/02/17 06:46 Dose: 3 ml Amlodipine Besylate (Norvasc) 5 mg PO DAILY [facility] Last Admin: 04/02/17 09:22 Dose: 5 mg Amoxicillin/Clavulanate Potassium (Augmentin) 500 mg PER TUBE Q12HR [facility] Last Admin: 04/02/17 09:22 Dose: 500 mg Artificial Tears (Tears Renewed 15ml Bottle) 0 drop EA EYE PRN PRN PRN Reason: Dry Eyes Aspirin (Aspirin) 325 mg PO DAILY [facility] Last Admin: 04/02/17 09:22 Dose: 325 mg Atorvastatin Calcium (Lipitor) 20 mg PO HS [facility] Last Admin: 04/01/17 20:01 Dose: 20 mg Bisacodyl (Dulcolax) 10 mg [place] Q24H PRN PRN Reason: Constipation Cyanocobalamin (Vitamin B-12) 1,000 mcg PO DAILY [facility] Last Admin: 04/02/17 09:22 Dose: 1,000 mcg Docusate Sodium (Colace Liquid) 200 mg PO BID [facility] Last Admin: 04/02/17 09:22 Dose: 200 mg Epoetin Dominick (Procrit) 10,000 units SC Q7D@1200 [facility] Ferrous Sulfate (Ferrous Sulfate) 300 mg PER TUBE QAM-WM [facility] Last Admin: 04/02/17 09:22 Dose: 300 mg Folic Acid (Folvite) 1 mg PO DAILY [facility] Last Admin: 04/02/17 09:22 Dose: 1 mg Gabapentin (Neurontin) 200 mg PO TID [facility] Last Admin: 04/02/17 09:22 Dose: 200 mg Guaifenesin (Robitussin Sf) 200 mg PO Q4H PRN PRN Reason: Cough Hydralazine HCl (Apresoline) 10 mg SLOW IVP Q4H PRN PRN Reason: Systolic BP > 180 Piperacillin Sod/Tazobactam Sod 3.375 gm/ Miscellaneous Medication 1 each/ Sodium Chloride 100 mls @ 200 mls/hr IVPB Q6HR [facility] Last Admin: 04/02/17 11:20 Dose: 100 mls Labetalol HCl (Normodyne) 20 mg SLOW IVP Q4H PRN PRN Reason: Systolic BP > 180 Loperamide HCl (Imodium) 2 mg PO PRN PRN PRN Reason: Diarrhea/Loose Stools Magnesium Hydroxide (Milk Of Magnesium) 30 ml PO DAILYPRN PRN PRN Reason: Constipation Megestrol Acetate (Megace) 40 mg PO DAILY [facility] Last Admin: 04/02/17 09:23 Dose: 40 mg Metoprolol Tartrate (Lopressor) 25 mg PO BID [facility] Last Admin: 04/02/17 09:22 Dose: 25 mg Mineral Oil/White Petrolatum (Eucerin Cream) 0 gm TOP BIDPRN PRN PRN Reason: Dry Skin Multivitamins (Theragran) 1 tab PO DAILY [facility] Last Admin: 04/02/17 09:22 Dose: 1 tab Ondansetron HCl (Zofran) 4 mg IVP Q6H PRN PRN Reason: Nausea/Vomiting Potassium Chloride (Klor-Con) 20 meq PER TUBE DAILY [facility] Last Admin: 04/02/17 09:23 Dose: 20 meq Pyridoxine HCl (Vitamin B 6) 50 mg PO DAILY [facility] Last Admin: 04/02/17 09:22 Dose: 50 mg Quetiapine Fumarate (Seroquel) 25 mg PO HS [facility] Last Admin: 04/01/17 20:02 Dose: 25 mg Saccharomyces Boulardii (Florastor) 250 mg PO DAILY [facility] Last Admin: 04/02/17 09:22 Dose: 250 mg Sodium Chloride ([place] Nasal [place] 0.65%) 0 ml EA NARE QIDPRN PRN PRN Reason: Nasal Congestion Sodium Chloride (Flush - Normal Saline) 10 ml IVF Q12HR [facility] Last Admin: 04/02/17 09:23 Dose: 10 ml Sodium Chloride (Flush - Normal Saline) 10 ml IVF PRN PRN PRN Reason: Saline Flush Last Admin: 04/02/17 11:20 Dose: 10 ml Terazosin HCl (Hytrin) 4 mg PO HS [facility] Last Admin: 04/01/17 20:01 Dose: 4 mg Tramadol HCl (Ultram) 50 mg PO QIDPRN PRN PRN Reason: Pain
[2017-04-02] MEDS: Atorvastatin Calcium 20 MG TAB PO SCH (21:17)
[2017-04-02] MEDS: Terazosin HCl 1 MG CAP PO SCH (21:23)
[2017-04-03 04:53] LABS: Anion Gap 11 mmol/L (10-20); BUN (Urea Nitrogen) 32 mg/dL (8.4-25.7); Calc. Creatinine Clearance 38 mL/min (70-130); Calcium 7.7 mg/dL (7.8-10.44); Carbon Dioxide 20 mmol/L (23-31); Chloride 110 mmol/L (98-107); Estimated GFR-MDRD 72
[2017-04-03] MEDS: Piperacillin/Tazobactam 3.375 GM, Admixture Fee 1 EACH in Sodium Chloride 0.9% 100 ML IVPB SCH (05:36)
[2017-04-03 05:44] LABS: Acanthocytes SLIGHT = 1-5 cells (100X) (None Seen); Anisocytosis MODERATE=16-30 cells (100X) (0-5/hpf); Band 5 % (5-11); Hematocrit 24.9 % (42.0-52.0); Mean Platelet Volume 8.2 fL (7.4-10.4); Metamyelocyte 2 % (0-0); Neutrophil 75 % (42-75); Target Cells SLIGHT = 2-5 cells (100X) (0-1/hpf)
[2017-04-03 08:13] VITALS: TEMP 97.5
[2017-04-03] MEDS: Saccharomyces boulardii 250 MG CAP PO SCH (08:47)
[2017-04-03] MEDS: pyridOXINE 50 MG (B6) TAB PO SCH (08:47)
[2017-04-03] MEDS: Amoxicillin/Potassium Clav 500 MG TAB PER TUBE SCH (08:47)
[2017-04-03] MEDS: Cyanocobalamin (Vitamin B-12) 1,000 MCG TAB PO SCH (08:47)
[2017-04-03] MEDS: Docusate Sodium 100 MG/10 ML UDCUP PO SCH (08:47)
[2017-04-03] MEDS: Metoprolol Tartrate 25 MG TAB PO SCH (08:48)
[2017-04-03] MEDS: Megestrol Acetate 40 MG TAB PO SCH (08:48)
[2017-04-03] MEDS: Amlodipine 5 MG TAB PO SCH (08:48)
[2017-04-03] MEDS: Aspirin 325 MG TAB PO SCH (08:48)
[2017-04-03] MEDS: Multivit, Therapeutic 1 TAB PO SCH (08:48)
[2017-04-03] MEDS: Folic Acid 1 MG TAB PO SCH (08:48)
[2017-04-03] MEDS: Gabapentin 100 MG CAP PO SCH ×2 (08:50→15:08)
--- NOTE | 2017-04-03 12:22 | PDOC.PN ---
- Subjective Encounter Start Date: 04/03/17 Encounter Start Time: 07:00 Subjective: wants to drink as he feels his throat is very dry -: has dry cough+, daughter at bedside - Objective Resuscitation Status: Resuscitation Status FULL:Full Resuscitation MAR Reviewed: Yes Vital Signs & Weight: Vital Signs (12 hours) Temp Pulse Resp BP Pulse Ox 04/03/17 11:31 98 16 93 L 04/03/17 08:12 97.5 F L 119 H 24 H 121/73 96 04/03/17 08:00 97.5 F L 119 H 24 H 94 L 04/03/17 07:48 26 H 04/03/17 06:14 109 H 18 93 L 04/03/17 04:00 98.7 F 104 H 18 124/69 96 04/03/17 01:11 94 L 04/03/17 00:22 99 16 93 L Weight Admit Weight 136 lb Weight 136 lb 2 oz Most Recent Monitor Data Heart Rate from ECG 90 NIBP 144/71 NIBP BP-Mean 84 Respiration from ECG 22 SpO2 96 I&O: 04/02/17 04/03/17 04/04/17 06:59 06:59 06:59 Intake Total 2290 1510 340 Output Total 700 1350 400 Balance 1590 160 -60 Result Diagrams: 04/03/17 04:09 04/03/17 04:09 Phys Exam - Physical Examination HEENT: PERRLA, sclera anicteric dry mucosa with crusts+ Neck: no JVD, supple Respiratory: no wheezing, no rales Cardiovascular: RRR, no significant murmur Gastrointestinal: soft, no distention, positive bowel sounds peg+ Musculoskeletal: no edema, pulses present Neurological: non-focal, moves all 4 limbs Dx/Plan (1) Acute respiratory failure with hypoxia Code(s): J96.01 - ACUTE RESPIRATORY FAILURE WITH HYPOXIA Status: Resolved (2) Aspiration pneumonia Code(s): J69.0 - PNEUMONITIS DUE TO INHALATION OF FOOD AND VOMIT Status: Acute Qualifiers: Aspiration pneumonia type: due to regurgitated food (3) Demand ischemia of myocardium Code(s): I24.8 - OTHER FORMS OF ACUTE ISCHEMIC HEART DISEASE Status: Resolved (4) Encephalopathy acute Code(s): G93.40 - ENCEPHALOPATHY, UNSPECIFIED Status: Resolved (5) Sepsis with acute organ dysfunction Code(s): A41.9 - SEPSIS, UNSPECIFIED ORGANISM; R65.20 - SEVERE SEPSIS WITHOUT SEPTIC SHOCK Status: Resolved (6) Thrombocytopenia Code(s): D69.6 - THROMBOCYTOPENIA, UNSPECIFIED Status: Chronic (7) Anemia, macrocytic Code(s): D53.9 - NUTRITIONAL ANEMIA, UNSPECIFIED Status: Chronic (8) H/O: CVA (cerebrovascular accident) Code(s): Z86.73 - PRSNL HX OF TIA (TIA), AND CEREB INFRC W/O RESID DEFICITS Status: Chronic (9) Oropharyngeal dysphagia Code(s): R13.12 - DYSPHAGIA, OROPHARYNGEAL PHASE Status: Chronic Comment: s/ p peg 03/30/17 (10) Physical deconditioning Code(s): R53.81 - OTHER MALAISE Status: Chronic (11) Protein-calorie malnutrition, moderate Code(s): E44.0 - MODERATE PROTEIN-CALORIE MALNUTRITION Status: Chronic - Plan has 24/7 care givers at home -: dc pt home, d/w daughter at bedside -: needs frequent oral hygeine -: nebs qid prn -: is at high risk for asp, peg feeds * . Review of Systems - Medications/Allergies Allergies/Adverse Reactions: Allergies Allergy/AdvReac Type Severity Reaction Status Date / Time Sulfa (Sulfonamide Allergy Intermediate Verified 03/26/17 17:44 Antibiotics) Medications: Current Medications Acetaminophen (Tylenol) 650 mg PO Q4H PRN PRN Reason: Headache/Fever or Pain Last Admin: 04/02/17 09:22 Dose: 650 mg Al Hydroxide/Mg Hydroxide (Maalox) 30 ml PO Q6H PRN PRN Reason: Heartburn or Indigestion Albuterol/Ipratropium (Duoneb) 3 ml NEB [id number] LINDA Last Admin: 04/03/17 11:31 Dose: 3 ml Amlodipine Besylate (Norvasc) 5 mg PO DAILY [facility] Last Admin: 04/03/17 08:48 Dose: 5 mg Amoxicillin/Clavulanate Potassium (Augmentin) 500 mg PER TUBE Q12HR [facility] Last Admin: 04/03/17 08:47 Dose: 500 mg Artificial Tears (Tears Renewed 15ml Bottle) 0 drop EA EYE PRN PRN PRN Reason: Dry Eyes Aspirin (Aspirin) 325 mg PO DAILY [facility] Last Admin: 04/03/17 08:48 Dose: 325 mg Atorvastatin Calcium (Lipitor) 20 mg PO HS [facility] Last Admin: 04/02/17 21:17 Dose: 20 mg Bisacodyl (Dulcolax) 10 mg MD Q24H PRN PRN Reason: Constipation Cyanocobalamin (Vitamin B-12) 1,000 mcg PO DAILY [facility] Last Admin: 04/03/17 08:47 Dose: 1,000 mcg Docusate Sodium (Colace Liquid) 200 mg PO BID [facility] Last Admin: 04/03/17 08:47 Dose: 200 mg Epoetin Dominick (Procrit) 10,000 units SC Q7D@1200 [facility] Ferrous Sulfate (Ferrous Sulfate) 300 mg PER TUBE [facility] Last Admin: 04/03/17 08:48 Dose: 300 mg Folic Acid (Folvite) 1 mg PO DAILY [facility] Last Admin: 04/03/17 08:48 Dose: 1 mg Gabapentin (Neurontin) 200 mg PO TID [facility] Last Admin: 04/03/17 08:50 Dose: 200 mg Guaifenesin (Robitussin Sf) 200 mg PO Q4H PRN PRN Reason: Cough Hydralazine HCl (Apresoline) 10 mg SLOW IVP Q4H PRN PRN Reason: Systolic BP > 180 Labetalol HCl (Normodyne) 20 mg SLOW IVP Q4H PRN PRN Reason: Systolic BP > 180 Loperamide HCl (Imodium) 2 mg PO PRN PRN PRN Reason: Diarrhea/Loose Stools Magnesium Hydroxide (Milk Of Magnesium) 30 ml PO DAILYPRN PRN PRN Reason: Constipation Megestrol Acetate (Megace) 40 mg PO DAILY [facility] Last Admin: 04/03/17 08:48 Dose: 40 mg Metoprolol Tartrate (Lopressor) 25 mg PO BID [facility] Last Admin: 04/03/17 08:48 Dose: 25 mg Mineral Oil/White Petrolatum (Eucerin Cream) 0 gm TOP BIDPRN PRN PRN Reason: Dry Skin Multivitamins (Theragran) 1 tab PO DAILY [facility] Last Admin: 04/03/17 08:48 Dose: 1 tab Ondansetron HCl (Zofran) 4 mg IVP Q6H PRN PRN Reason: Nausea/Vomiting Pyridoxine HCl (Vitamin B 6) 50 mg PO DAILY [facility] Last Admin: 04/03/17 08:47 Dose: 50 mg Quetiapine Fumarate (Seroquel) 25 mg PO HS [facility] Last Admin: 04/02/17 21:18 Dose: 25 mg Saccharomyces Boulardii (Florastor) 250 mg PO DAILY [facility] Last Admin: 04/03/17 08:47 Dose: 250 mg Sodium Chloride (Asotin Nasal [place] 0.65%) 0 ml EA NARE QIDPRN PRN PRN Reason: Nasal Congestion Sodium Chloride (Flush - Normal Saline) 10 ml IVF Q12HR [facility] Last Admin: 04/03/17 08:48 Dose: Not Given Sodium Chloride (Flush - Normal Saline) 10 ml IVF PRN PRN PRN Reason: Saline Flush Last Admin: 04/02/17 17:32 Dose: 10 ml Terazosin HCl (Hytrin) 4 mg PO HS [facility] Last Admin: 04/02/17 21:23 Dose: 4 mg Tramadol HCl (Ultram) 50 mg PO QIDPRN PRN PRN Reason: Pain
[2017-04-03 17:41] VITALS: BP 100/58
--- NOTE | 2017-04-03 22:35 | DIS ---
DATE OF ADMISSION: 04/03/2017 DATE OF DISCHARGE: 04/03/2017 DISCHARGE DISPOSITION: To home with home health. PRIMARY DISCHARGE DIAGNOSES: Aspiration pneumonia with acute respiratory failure with hypoxia; dysph agia, status post PEG tube; demand ischemia; sepsis; acute encephalopathy, resolved; chronic thromboc ytopenia; chronic anemia; history of cerebrovascular accident; deconditioning; moderate protein malnu trition. PROCEDURES DONE DURING HOSPITALIZATION: The patient has had initial chest x-ray done on the day of a dmission, which showed patchy infiltrates. Has had PEG tube placed on 03/30/2017. Blood cultures x2 no growth. Discharge H&H is 8 and 24 with platelet count of 62. Initial H&H was 7 and 21 with plat elet count of 235 and white count of 15 on the day of admission, had 18% bands on the day of admissio n. Discharge BUN and creatinine were 32 and 1.1. Troponin I was indeterminate with peaking up to 1. 0. CK-MB 5.8. BNP was 74, initial BUN and creatinine were 36 and 2.0. Had a potassium of 6.1 on day of admission. Albumin was 3.3. DISCHARGE MEDICATIONS: Norvasc 5 mg p.o. daily, Augmentin 500 mg p.o. twice daily for another 4 days , aspirin 325 mg p.o. daily, atorvastatin 20 mg p.o. at bedtime, vitamin B12 1000 mcg p.o. daily, Pep holly 20 mg twice daily, ferrous sulfate 300 mg via PEG tube daily, gabapentin 100 mg p.o. 3 times evangelista y, DuoNebs q.6 hourly, Megace 40 mg daily, Lopressor 25 mg twice daily, multivitamin daily, K-Dur 20 mEq daily, pyridoxine 50 mg daily, Seroquel 25 mg at bedtime, Florastor 250 mg daily, terazosin 4 mg at bedtime, Ultram p.r.n. ALLERGIES: SULFA. INPATIENT CONSULTS: Dr. Sorto/Karyn for Pulmonology. Briefed Dr. Mike Szymanski for Gastroenterology. DISCHARGE PLAN: Patient to follow up with his primary care physician in 1 week. BRIEF COURSE DURING HOSPITALIZATION: The patient initially got admitted on 03/26/2017 after family b rought him as he was not eating and drinking. He has had a recent left hemiparesis from stroke which he sustained prior to discharge on 03/20/2017. The patient was found to have had aspiration pneumon ia with saturations of 85% on room air and requiring intubation on arrival. He was admitted to ICU. Patient had bandemia with signs of sepsis. He was placed on broad-spectrum antibiotics. He was isabell gnosed with aspiration pneumonia with recent left hemiparesis. He also had acute kidney injury, whic h is resolving at the time of discharge now. Patient was successfully extubated. He has severe deco nditioning. The patient is 89 years old and has 24/7 caregivers at home. Family declined placement. In view of this, he is being discharged home with PEG feeding. Family has been taught PEG feeding. He had PEG placed on the for dysphagia and poor oral intake. He is still at risk for aspirati on. Patient is also at high risk for readmission. Family is clearly aware of this. A total of 35 minutes was spent on discharge plan. Please see a [id number] documentation on [facility] for the day of discharge.
[2017-04-05] MEDS ORDERED: Epoetin (ESRD) 10,000 UNITS/ML VIAL SC SCH ×2 (12:00)
--- NOTE | 2017-05-03 12:47 | EKG ---
Test Reason : AMS Blood Pressure : / mmHG Vent. Rate : 113 BPM Atrial Rate : 113 BPM P-R Int : 128 ms QRS Dur : 120 ms QT Int : 360 ms P-R-T Axes : 052 -27 034 degrees QTc Int : 493 ms Sinus tachycardia Right bundle branch block Possible Lateral infarct , age undetermined Inferior infarct , age undetermined No STEMI Abnormal ECG Confirmed by EFRAIN REED ([id number]), pictures editor RORY WHITTAKER ([id number]) on 05/03/2017 12:47:39 PM Referred By: Confirmed By:EFRAIN REED
== END 2017-04-03 19:12 | disposition home health service (06) | DRG 871 ==
LOC: ERS 11:47 → CCU 15:57 → T4-A 03-29 10:12
PROVIDERS: ADMIT Internal Medicine; ATTEND Internal Medicine
PROC: 5A1945Z Respiratory Ventilation, 24-96 Consecutive Hours (ICD-10-PCS; principal; 2017-03-26)
PROC: 0BH17EZ Insertion of Endotracheal Airway into Trachea, Via Natural or Artificial Opening (ICD-10-PCS; 2017-03-26)
PROC: 0BP1XDZ Removal of Intraluminal Device from Trachea, External Approach (ICD-10-PCS; 2017-03-28)
PROC: 5A09557 Assistance with Respiratory Ventilation, Greater than 96 Consecutive Hours, Continuous Positive Airway Pressure (ICD-10-PCS; 2017-03-28)
PROC: 0DH63UZ Insertion of Feeding Device into Stomach, Percutaneous Approach (ICD-10-PCS; 2017-03-30)
DX: A41.9 Sepsis, unspecified organism (principal); G93.41 Metabolic encephalopathy; J96.01 Acute respiratory failure with hypoxia; J69.0 Pneumonitis due to inhalation of food and vomit; N17.9 Acute kidney failure, unspecified; E87.2 Acidosis; R13.12 Dysphagia, oropharyngeal phase; E44.0 Moderate protein-calorie malnutrition; I69.354 Hemiplegia and hemiparesis following cerebral infarction affecting left non-dominant side; I24.8 Other forms of acute ischemic heart disease; Z68.1 Body mass index [BMI] 19.9 or less, adult; R65.20 Severe sepsis without septic shock; E87.5 Hyperkalemia; I69.391 Dysphagia following cerebral infarction; D53.9 Nutritional anemia, unspecified; F03.90 Unspecified dementia, unspecified severity, without behavioral disturbance, psychotic disturbance, mood disturbance, and anxiety; D69.6 Thrombocytopenia, unspecified; E87.8 Other disorders of electrolyte and fluid balance, not elsewhere classified; K25.9 Gastric ulcer, unspecified as acute or chronic, without hemorrhage or perforation; E78.5 Hyperlipidemia, unspecified; D46.9 Myelodysplastic syndrome, unspecified; I10 Essential (primary) hypertension; F32.9 Major depressive disorder, single episode, unspecified; F41.9 Anxiety disorder, unspecified; F17.210 Nicotine dependence, cigarettes, uncomplicated; R62.7 Adult failure to thrive; Z85.53 Personal history of malignant neoplasm of renal pelvis; Z85.118 Personal history of other malignant neoplasm of bronchus and lung; Z85.819 Personal history of malignant neoplasm of unspecified site of lip, oral cavity, and pharynx; Z92.3 Personal history of irradiation; Z88.2 Allergy status to sulfonamides
CPT/HCPCS: 31500; 36415; 36416; 36430; 51702; 71010; 74000; 80048; 80053; 80076; 81003; 82533; 82553; 82805; 83605; 83735; 83880; 84100; 84484; 85007; 85025; 85027; 86850; 86900; 86901; 87040; 93005; 94002; 94003; 94640; 94760; 96365; 96366; 96368; A4216; G8996-GN-CM; G8996-GN-CN; G8997-GN-CK; G8997-GN-CM; G8997-GN-CN; J0690; J1644; J2001; J2270; J2543; J2704; J2920; J3370; J3480; J7050; J7620; P9016; Q4081; S0028; S0179